=== PATIENT | male | born 1930 | race Caucasian/White ===

== ENCOUNTER 2017-04-19 10:57 | Inpatient (IN) | payer MEDICARE, OTHER ==
[2017-04-19] VITALS (35 sets, daily range): BP systolic 97–128; BP diastolic 50–82
[~2017-04-19] VITALS: Ht 175.3 cm; Wt 82.1 kg
--- NOTE | 2017-04-19 11:05 | NUR ---
Note undone in EDM - 04/19/17 at 1125 by [email or web address] ADRIANNARA [facility] DUE TO SOB AND POSSIBLE BLOOD IN STOOL PER REPORT. PATIENT RECEIVED AWAKE, HOWEVER NON VERBAL. PATIENT ON O2 VIA NC 22-3 LPM SATING 97%. PATIENT APPEARS IN MILD DISTRESS. AFEBRILE GOWNED PATIENT AND PLACED ON TELE MONITOR.
--- NOTE | 2017-04-19 11:05 | NUR ---
BRAN FROM [facility] DUE TO SOB AND POSSIBLE BLOOD IN STOOL PER REPORT. PATIENT RECEIVED AWAKE, HOWEVER NON VERBAL. PATIENT ON O2 VIA NC 2-3 LPM SATING 97%. PATIENT APPEARS IN MILD DISTRESS. AFEBRILE GOWNED PATIENT AND PLACED ON TELE MONITOR.
--- NOTE | 2017-04-19 11:12 | NUR ---
CALLED [facility] FOR PICCLINE
--- NOTE | 2017-04-19 11:13 | NUR ---
CALLED PHARMACY FOR PROTONIX DRIP
--- NOTE | 2017-04-19 11:17 | NUR ---
ICU BED 255
[2017-04-19 11:26] LABS: BASOPHILS % (AUTO) 0.2 % (0.0-2.0); EOSINOPHILS % (AUTO) 0.1 % (0.0-6.0); HEMATOCRIT 25 % (39-51); HEMOGLOBIN 8.1 g/dL (13.5-17.5); LYMPHOCYTES % (AUTO) 15.9 % (20.0-44.0); MEAN CORPUSCULAR HEMOGLOBIN 30 PG (26.0-33.0); MEAN CORPUSCULAR HGB CONC 33 g/dl (31.0-36.0); MEAN CORPUSCULAR VOLUME 90 fL (80-96); MONOCYTES # (AUTO) 0.9 /CMM (0.1-1.30); NEUTROPHILS # (AUTO) 9.8 /CMM (1.8-8.9); NEUTROPHILS % (AUTO) 76.8 % (43.0-81.0); PLATELET COUNT (AUTO) 174 /CMM (150-450); RDW COEFFICIENT OF VARIATION 20.6 (11.5-15.0); RED BLOOD CELL COUNT(AUTO) 2.75 MIL/uL (4.5-6.0); WHITE BLOOD COUNT (AUTO) 12.7 K/uL (4.3-11.0)
[2017-04-19] MEDS ORDERED: PIPERACILLIN /TAZOBACTAM 3.375 G in IV D5W 50 ML IV ONE (11:30)
[2017-04-19] MEDS ORDERED: PANTOPRAZOLE 80 MG in IV NS 0.9% 100 ML IV ONE (11:30)
[2017-04-19] MEDS ORDERED: ACETAMINOPHEN 325 MG TABLET PO ONE ×2 (11:30)
[2017-04-19] MEDS ORDERED: IV NS 0.9% 1,000 ML BAG IV ONE ×2 (11:30)
[2017-04-19] MEDS ORDERED: VANCOMYCIN 1 GM in IV D5W 250 ML IV ONE (11:30)
[2017-04-19 11:35] LABS: CALCIUM, SERUM 7.5 mg/dL (8.5-10.1); CARBON DIOXIDE 19 mmol/L (21-32); CHLORIDE 113 mmol/L (98-107); CREATININE 1.3 mg/dL (0.6-1.3); GLUCOSE 181 mg/dL (74-106); POTASSIUM 5.4 mmol/L (3.5-5.1); SODIUM SERUM 141 mmol/L (136-145); UREA NITROGEN, BLOOD 64 mg/dL (7-18)
--- NOTE | 2017-04-19 11:37 | NUR ---
Paged Dr Tinsley for GI consult for Dr Li. Dr Li is talking with him on the phone.
[2017-04-19 11:38] LABS: INR 1.26 (0.87-1.13); PROTHROMBIN TIME 13.1 SECS (9.5-12.7)
[2017-04-19 11:43] LABS: TROPONIN I 0.069 ng/mL (0.00-0.056)
[2017-04-19 11:46] LABS: ALANINE AMINOTRANSFERASE 17 U/L (12-78); ALKALINE PHOSPHATASE 165 U/L (46-116); ASPARTATE AMINOTRANSFERASE 18 U/L (15-37); BILIRUBIN,DIRECT 0.2 mg/dL (0.0-0.2); BILIRUBIN,TOTAL 0.6 mg/dL (0.2-1.0); LIPASE 107 U/L (73-393); TOTAL PROTEIN, SERUM 4.4 g/dL (6.4-8.2)
[2017-04-19 11:47] LABS: ALBUMIN 1.2 g/dL (3.4-5.0)
[2017-04-19] MEDS ORDERED: MULT-213 GT (11:48)
[2017-04-19] MEDS ORDERED: LACT-209 GT (11:48)
[2017-04-19] MEDS ORDERED: FOLI0.8T23 GT (11:48)
[2017-04-19] MEDS ORDERED: ZINC220T GT (11:48)
[2017-04-19] MEDS ORDERED: DOCU-25 GT (11:48)
[2017-04-19] MEDS ORDERED: NA P133E RC (11:48)
[2017-04-19] MEDS ORDERED: DUTA0.5C GT (11:48)
[2017-04-19] MEDS ORDERED: BISA10SU8 RC (11:48)
[2017-04-19] MEDS ORDERED: SENN8.6T6 GT (11:48)
[2017-04-19] MEDS ORDERED: PANT40SU2 GT (11:48)
[2017-04-19] MEDS ORDERED: LEVO50TA8 GT (11:48)
[2017-04-19] MEDS ORDERED: ATOR10TA GT (11:48)
[2017-04-19] MEDS ORDERED: MAGN400O6 GT (11:48)
[2017-04-19] MEDS ORDERED: METO25TA6 GT (11:48)
[2017-04-19] MEDS ORDERED: ACET-868 GT (11:48)
[2017-04-19] MEDS ORDERED: SUCR1TAB26 GT (11:48)
[2017-04-19] MEDS ORDERED: ASPI1CPM GT (11:48)
[2017-04-19] MEDS ORDERED: ALBU2.5V38 NEB (11:48)
--- NOTE | 2017-04-19 13:00 | NUR ---
REPORT GIVEN TO RANJIT LESLIE FOR [facility] ICU 255
[2017-04-19] MEDS ORDERED: ACETAMINOPHEN 325 MG TABLET PO PRN (13:30)
[2017-04-19] MEDS ORDERED: ONDANSETRON HCL/PF 4 MG/2 ML VIAL IV PRN (13:30)
[2017-04-19] MEDS ORDERED: MORPHINE SULFATE INJ 2 MG/ML DISP.SYRIN IM PRN (14:00)
[2017-04-19] MEDS ORDERED: PHYTONADIONE INJ 10 MG/1 ML AMPUL IM ONE (14:00)
[2017-04-19] MEDS ORDERED: NOREPINEPHRINE 8 MG in IV D5W 500 ML IV PRN (14:30)
[2017-04-19] MEDS ORDERED: AMIODARONE 900 MG in IV D5W 482 ML IV PRN (14:30)
[2017-04-19] MEDS ORDERED: AMIODARONE 150 MG in IV D5W 100 ML IV ONE (14:30)
[2017-04-19] MEDS: IV NS 0.9% 1,000 ML IV PRN (14:39)
[2017-04-19] MEDS: PANTOPRAZOLE 80 MG in IV NS 0.9% 500 ML IV PRN (15:07)
--- NOTE | 2017-04-19 15:22 | NUR ---
SHELLFISH SHUCKER NOTE 1330: Admitted 86y/o male patient from ER fro GIB/rectal bleeding. No active bleeding noted a this time. 1st bag of PRBC ongoing. 3PIVs intact. GT clamped, intact, no resdiuals, no coffee ground noted on the GT. Dr. Tinsley at bedside, aware. Obtained order for Vit K IM, serial H/H. 1400: Admitting orders entered. 1520: Daughter at bedside, discussed re: the POC. Signed consent for PICC line insertion and blood transfusion consent, verbal consent given by daughter to Dr. Li in ER. Done with 1st bag of blood transfusion, patient tolerated well. VSS at this time. AFib controlled now, on Amio drip at 1mg/hr. 90-100's. Followed up to blood bank for 2nd bag, said they will call in 30 min. Daughter informed re: FUNMI DVT, ordered stat venous doppler BUE.
--- NOTE | 2017-04-19 16:18 | NUR ---
BIOINFORMATICS ENGINEER NOTE 2 issued PRBCs from ER, not scanned. Patient only received 1 unit PRBC that started from ER>
--- NOTE | 2017-04-19 18:52 | NUR ---
SUPPLY CHAIN DIRECTOR NOTE Updated Dr. Li re: patient's condition, negative on BUE DVT. Daughter and visited and made them aware re: the result too. Was able to place midline on MOOKIE, unable to get PICC line per PICC nurse. Still on 2nd bag RBC ongoing. Noted with 1BM bright red stool again. Cleaned patient and placed on condom cath to draining bag. Placed on KCI mattress. Contact isolation for ESBL urine Hx, maintained and observed.
--- NOTE | 2017-04-19 21:19 | NUR ---
received pt from day shift, alert, does not follow commands, A fib controlled, receiving Amio at 0.5mg/hr, Protonix at 50cc/hr, on 2L NC sat well, lungs congested, NPO, condom cath on, GT clamped, small black stool noted, pt taken to CT of abdomen, tolerated well, 2 units prbcs transfused, v/s stable, no pain, no transfusion reactions, pt turned and repositioned.
[2017-04-19 21:39] LABS: HEMOGLOBIN 8.8 g/dL (13.5-17.5)
--- NOTE | 2017-04-19 22:44 | NUR ---
did not try to insert F/C, day shift tried, was not successful, might be traumatized noted some blood around penis. condom cath does not stay on the penis because of penis size. bladder scan done, no urine in the bladder.
[2017-04-20] VITALS (43 sets, daily range): BP systolic 90–147; BP diastolic 40–81
--- NOTE | 2017-04-20 | NUR ---
pt is resting in the bed, on amio at 0.5mg/hr, A fib controlled, v/s stable, no pain, small black stool, pt turned and repositioned q2hrs.
[2017-04-20] MEDS ORDERED: PANTOPRAZOLE 40 MG VIAL ONE (00:02)
[2017-04-20] MEDS: PANTOPRAZOLE 80 MG in IV NS 0.9% 500 ML IV PRN ×3 (01:55→22:19)
[2017-04-20] MEDS: IV NS 0.9% 1,000 ML IV PRN ×2 (02:01→17:24)
[2017-04-20 04:31] LABS: BASOPHILS % (AUTO) 0.3 % (0.0-2.0); EOSINOPHILS % (AUTO) 0.2 % (0.0-6.0); HEMATOCRIT 22 % (39-51); HEMOGLOBIN 7.3 g/dL (13.5-17.5); LYMPHOCYTES # (AUTO) 1.1 /CMM (0.8-4.8); LYMPHOCYTES % (AUTO) 8.6 % (20.0-44.0); MEAN CORPUSCULAR HEMOGLOBIN 30 PG (26.0-33.0); MEAN CORPUSCULAR HGB CONC 33 g/dl (31.0-36.0); MEAN CORPUSCULAR VOLUME 90 fL (80-96); MONOCYTES # (AUTO) 0.7 /CMM (0.1-1.30); MONOCYTES % (AUTO) 5.6 % (2.0-12.0); NEUTROPHILS # (AUTO) 11.4 /CMM (1.8-8.9); NEUTROPHILS % (AUTO) 85.3 % (43.0-81.0); PLATELET COUNT (AUTO) 108 /CMM (150-450); RDW COEFFICIENT OF VARIATION 18.6 (11.5-15.0); RED BLOOD CELL COUNT(AUTO) 2.46 MIL/uL (4.5-6.0); WHITE BLOOD COUNT (AUTO) 13.4 K/uL (4.3-11.0)
[2017-04-20 04:45] LABS: CALCIUM, SERUM 6.8 mg/dL (8.5-10.1); CARBON DIOXIDE 20 mmol/L (21-32); CHLORIDE 117 mmol/L (98-107); CREATININE 1.2 mg/dL (0.6-1.3); GLUCOSE 108 mg/dL (74-106); MAGNESIUM 1.7 mg/dL (1.8-2.4); PHOSPHORUS 3.4 mg/dL (2.5-4.9); POTASSIUM 4.7 mmol/L (3.5-5.1); SODIUM SERUM 146 mmol/L (136-145); UREA NITROGEN, BLOOD 71 mg/dL (7-18)
--- NOTE | 2017-04-20 04:45 | NUR ---
pt is resting in the bed, A fib, on amio drip at 0.5mg/hr, v/s stable, no pain, pt cleaned, changed and repositioned q2hrs.
[2017-04-20 08:18] LABS: ABG BASE EXCESS -6.7 mmol/L; ABG OXYGEN SATURATION 95.4 % (92.0-98.5); ABG PCO2 22.5 mmHg (35.0-45.0); ABG PH 7.467 (7.350-7.450); ABG PO2 86.6 mmHg (75.0-100.0); AaDO2 86.5 mmHg; COHb 0.1 % (0.5-1.5); MetHb 0.8 % (0.0-1.5); O2Hb 94.5 % (94.0-97.0); SITE, ABG Right Radial; VENT MODE, BG 2L N/C
--- NOTE | 2017-04-20 08:49 | NUR ---
STEWARD/STEWARDESS RAILROAD DINING CAR NOTE 0720: Received patient awake, alert to name. No respiratory distress noted at this time. On 2LPM of O2 via NC, Sat 98%. No c/o discomfort at this time. On isolation precaution for Hx ESBL urine, maintained and observed. MD aware unable to get urine, even tried condom catheter but does not stay. Still noted with dark red stool. Will continue to monitor. MOOKIE midline intact. Blood transfusion ongoing, VSS. 0805: Done with blood transfusion, patient tolerated well. 0840: S/E by Dr. Li, with order to start on Vanco and Zosyn and decrease IVF NS to 40. 0845: Spoke with Naz, daughter via phone and given update.
[2017-04-20] MEDS ORDERED: PIPERACILLIN /TAZOBACTAM 2.25 G in IV D5W 50 ML IV SCH (09:00)
[2017-04-20 09:06] LABS: HEMOGLOBIN 7.8 g/dL (13.5-17.5)
--- NOTE | 2017-04-20 09:18 | NUR ---
HISTOPATHOLOGY TECHNICIAN NOTE S/E by Dr. Tinsley, aware for the latest labs, Hgb 7.8, with order to do H/H at 1300. Patient still with episodes of dark red stool, aware.
[2017-04-20] MEDS ORDERED: FEE PK DOSING 1 MIN EA MC ONE (09:20)
[2017-04-20] MEDS ORDERED: AMIODARONE 900 MG in IV D5W 482 ML IV PRN (10:00)
[2017-04-20] MEDS ORDERED: Magnesium 1GM/D5W 100ML PREMIX 100 ML IV SCH (10:00)
--- NOTE | 2017-04-20 10:00 | NUR ---
WALLCOVERING TEXTURER NOTE S/E by darvin Bray Afib 100's on the monitor, informed MD 24 hr therapy of Amio will be done at 1500, continue Amio 0.5mg IV drip until further order per MD.
[2017-04-20 10:33] LABS: THYROID STIMULATING HORMONE 10.881 uIU/mL (0.358-3.74)
[2017-04-20 10:35] LABS: TROPONIN I 0.048 ng/mL (0.00-0.056)
[2017-04-20] MEDS: Magnesium 1GM/D5W 100ML PREMIX 100 ML IV SCH ×2 (10:42→11:39)
[2017-04-20] MEDS: ATORVASTATIN 10 MG TABLET GT SCH ×2 (10:56→21:34)
--- NOTE | 2017-04-20 10:58 | NUR ---
BUSINESS DEVELOPMENT CONSULTANT NOTE Dr. Li called and said he talked to daughter Naz and does not want any procedure today, informed Dr. Tinsley, verbalized understanding. Spoke with Naz via phone and given update.
[2017-04-20] MEDS: LEVOTHYROXINE SODIUM 50 MCG TABLET GT SCH (11:00)
[2017-04-20] MEDS: DIGOXIN INJ 0.5 MG/2 ML AMPUL IV SCH ×3 (11:07→23:55)
[2017-04-20] MEDS: SUCRALFATE 1 G TABLET GT SCH ×3 (11:07→21:34)
[2017-04-20] MEDS: VANCOMYCIN 1 GM in IV D5W 250 ML IV SCH (11:39)
[2017-04-20] MEDS: PIPERACILLIN /TAZOBACTAM 3.375 G in IV D5W 50 ML IV SCH ×3 (12:27→23:56)
[2017-04-20 14:17] LABS: HEMOGLOBIN 7.1 g/dL (13.5-17.5)
--- NOTE | 2017-04-20 20:05 | NUR ---
RN OPENING NOTES: RECEIVED PATIENT ON BED AWAKE ALERT X2, VERBALLY RESPONSIVE. ON O2 VIA NC AT 2LPM, TOLERATED WELL. AFIB CONTROLLED ON MONITOR, HR AT LOW 100'S TO HIGH 90'S. IV ACCESS ON MOOKIE PICC LINE WITH ONGOING AMIODARONE DRIP, PROTONIX DRIP AND IVF ORDERED. GT INTACT, CHECKED FOR GASTRIC RESIDUALS. NO NOTED BLOODY GASTRIC FLUID NOTED. PATIENT IS INCONTINENT WITH DIAPER. MONITORED FOR ACTIVE BLEEDING. SAFETY MEASURES ENSURED. WITH PENDING H/H AT 2100, WITH STANDING ORDER OF BLOOD TRANSFUSION BASED ON RESULT OF BLOOD TEST. FALL AND ASPIRATION PRECAUTIONS OBSERVED AT ALL TIMES. CONTINUOUSLY MONITORED CLOSELY.
[2017-04-20 21:30] LABS: HEMOGLOBIN 6.3 g/dL (13.5-17.5)
--- NOTE | 2017-04-20 21:30 | NUR ---
RN NOTES: H/H RESULT CRITICAL AT 6.3 AND 19. STANDING ORDER CARRIED OUT. TO TRANSFUSE 1 UNIT PRBC. 2218 STARTED BLOOD TRANSFUSION, VERIFIED WITH MAGDALENO KELLEY RN. CONSENT IN CHART. PATIENT'S DAUGHTER AWARE SHE CALLED AND SPOKE TO FAMILY MEMBER OVER THE PHONE. VS LOGGED. AFEBRILE. MONITORED FOR POSSIBLE BLOOD TRANSFUSION REACTIONS.
[2017-04-20] MEDS: MUPIROCIN OINT 2% 22 GM TUBE SCH (21:48)
[2017-04-21] VITALS (20 sets, daily range): BP systolic 105–138; BP diastolic 44–69
--- NOTE | 2017-04-21 | NUR ---
RN NOTES; SKIN CARE RENDERED. BED BATH GIVEN. PATIENT WITH NOTED BM X1 LIQUID AND BLOODY OF MODERATE AMOUNT. BLOOD TRANSFUSION STILL ONGOING. ALSO NOTED BUE DEPENDENT EDEMA THAT IS WEEPING. SKIN CARE RENDERED. ELEVATED BUE. TO MONITOR FOR FURTHER (ACTIVE) BLEEDING.
--- NOTE | 2017-04-21 01:15 | NUR ---
RN NOTES: BLOOD TRANSFUSION ENDED. PATIENT REMAINED NOT IN APPARENT DISTRESS. VS STABLE. CONTINUOUSLY MONITORED.
[2017-04-21] MEDS: VANCOMYCIN 1 GM in IV D5W 250 ML IV SCH ×2 (04:18→22:00)
[2017-04-21 04:29] LABS: EOSINOPHILS % (AUTO) 0.3 % (0.0-6.0); HEMATOCRIT 22 % (39-51); HEMOGLOBIN 7.4 g/dL (13.5-17.5); LYMPHOCYTES # (AUTO) 0.9 /CMM (0.8-4.8); LYMPHOCYTES % (AUTO) 6.7 % (20.0-44.0); MEAN CORPUSCULAR HEMOGLOBIN 30 PG (26.0-33.0); MEAN CORPUSCULAR HGB CONC 34 g/dl (31.0-36.0); MEAN CORPUSCULAR VOLUME 90 fL (80-96); MONOCYTES # (AUTO) 0.8 /CMM (0.1-1.30); MONOCYTES % (AUTO) 5.9 % (2.0-12.0); NEUTROPHILS # (AUTO) 11.3 /CMM (1.8-8.9); NEUTROPHILS % (AUTO) 87.1 % (43.0-81.0); PLATELET COUNT (AUTO) 90 /CMM (150-450); RDW COEFFICIENT OF VARIATION 16.4 (11.5-15.0); RED BLOOD CELL COUNT(AUTO) 2.44 MIL/uL (4.5-6.0)
[2017-04-21 04:42] LABS: ALANINE AMINOTRANSFERASE 16 U/L (12-78); ALKALINE PHOSPHATASE 115 U/L (46-116); ASPARTATE AMINOTRANSFERASE 20 U/L (15-37); BILIRUBIN,TOTAL 0.6 mg/dL (0.2-1.0); CALCIUM, SERUM 7.1 mg/dL (8.5-10.1); CARBON DIOXIDE 20 mmol/L (21-32); CHLORIDE 120 mmol/L (98-107); CREATININE 1.1 mg/dL (0.6-1.3); GLUCOSE 99 mg/dL (74-106); PHOSPHORUS 3.4 mg/dL (2.5-4.9); POTASSIUM 4.7 mmol/L (3.5-5.1); SODIUM SERUM 149 mmol/L (136-145); TOTAL PROTEIN, SERUM 3.4 g/dL (6.4-8.2)
[2017-04-21 04:48] LABS: TROPONIN I 0.037 ng/mL (0.00-0.056)
[2017-04-21 04:55] LABS: ALBUMIN 0.9 g/dL (3.4-5.0); UREA NITROGEN, BLOOD 86 mg/dL (7-18)
[2017-04-21 05:16] LABS: BAND % (MANUAL) 8 % (0.0-5.0); LYMPHOCYTES % (MANUAL) 7 % (16-48); MONOCYTES % (MANUAL) 5 % (0-11.0); NEUTROPHILS % (MANUAL) 80 (42-76)
[2017-04-21] MEDS: PIPERACILLIN /TAZOBACTAM 3.375 G in IV D5W 50 ML IV SCH ×3 (05:21→17:58)
--- NOTE | 2017-04-21 06:26 | NUR ---
WOUND CARE CONSULT WOUND CARE CONSULT RECEIVED. SURGICAL TEAM FOLLOWING WOUND CARE WILL DEFER TO SURGICAL TEAM AND ALL TREATMENT ORDERS IN PLACE. ALL PRESSURE ULCER PREVENTION MEASURES NOTED TO BE IN PLACE. 1ST STEP LOW AIRLOSS MATTRESS IN USE. PATIENT WITH RICHARD AT 11. MD IN AGREEMENT WITH PLAN OF CARE. Z GUARD ORDERED FOR SKIN/MOISTURE MANAGEMENT.
[2017-04-21] MEDS ORDERED: Z GUARD REMEDY 2 OZ OINT TP PRN (06:30)
--- NOTE | 2017-04-21 06:47 | NUR ---
RN CLOSING NOTES: PATIENT REMAINED NOT IN APPARENT DISTRESS AT THIS TIME. REMAINED ON O2 THERAPY. REMAINED AFIB CONTROLLED ON MONITOR, ALL DRIPS AND IVF ONGOING ORDERED. SKIN CARE RENDERED. SAFETY MEASURES ENSURED. CONTINUITY OF CARE TO BE ENDORSED TO AM SHIFT RN.
--- NOTE | 2017-04-21 07:45 | NUR ---
ICU/RN - Initial Notes Received pt in bed, alert to self. Reorientation provided to place and time. On tele reading AFib controlled 80's, on continuous Amiodarone gtt as ordered. On O2 @ 2lpm via nasal cannula. GT clamped, kept NPO as ordered. MOOKIE Midline patent and intact, IVF and Protonix gtt infusing well. Safety and comfort measures in place. Will continue to monitor pt closely.
[2017-04-21] MEDS: MUPIROCIN OINT 2% 22 GM TUBE SCH ×2 (08:01→21:40)
[2017-04-21] MEDS: SUCRALFATE 1 G TABLET GT SCH ×4 (08:01→21:00)
[2017-04-21] MEDS: CADEXOMER IODINE 40 GM TUBE TP SCH (08:02)
[2017-04-21] MEDS: Z GUARD REMEDY 2 OZ OINT TP SCH (08:03)
[2017-04-21] MEDS: LEVOTHYROXINE SODIUM 50 MCG TABLET GT SCH (08:04)
[2017-04-21] MEDS: DAKINS QUARTER STRENGTH (0.125%) 480 ML BOTTLE TOP SCH (09:51)
[2017-04-21] MEDS: NEOMY SULF/BACITRAC ZN/POLY 15 GM TUBE TP SCH ×2 (09:51→18:48)
--- NOTE | 2017-04-21 09:55 | NUR ---
ICU/RN - Notes Pt seen and evaluated by Dr Ruiz with new orders received. Ok to transfer to [facility] per .
[2017-04-21] MEDS: IV NS 0.9% 1,000 ML IV PRN (10:10)
[2017-04-21] MEDS: PANTOPRAZOLE 80 MG in IV NS 0.9% 500 ML IV PRN (11:01)
[2017-04-21] MEDS: DIGOXIN INJ 0.5 MG/2 ML AMPUL IV SCH ×2 (11:03→17:58)
[2017-04-21] MEDS ORDERED: LORATADINE 10 MG TABLET PO ONE (12:30)
[2017-04-21] MEDS ORDERED: diphenhydrAMINE HCL 50 MG/ML VIAL IV ONE (12:30)
--- NOTE | 2017-04-21 13:00 | NUR ---
ICU/RN - Notes Orders received from Dr Li to transfuse x1 PRBC now. Benadryl and Claritin administered prior to initiation of transfusion. PRBC transfusion started. Will continue to monitor.
[2017-04-21 13:40] LABS: ABG BASE EXCESS -7.2 mmol/L; ABG OXYGEN SATURATION 94.3 % (92.0-98.5); ABG PCO2 20.5 mmHg (35.0-45.0); ABG PH 7.489 (7.350-7.450); ABG PO2 77.3 mmHg (75.0-100.0); AaDO2 47.9 mmHg; COHb 1.1 % (0.5-1.5); MetHb 1.2 % (0.0-1.5); O2Hb 92.1 % (94.0-97.0); SITE, ABG Right Radial; VENT MODE, BG ROOM AIR
--- NOTE | 2017-04-21 15:20 | NUR ---
ICU/RN - Notes Bed bath given to pt. Bloody bowel movement noted.
--- NOTE | 2017-04-21 15:55 | NUR ---
ICU/RN - Notes Blood transfusion completed with no s/s of adverse reactions.
--- NOTE | 2017-04-21 15:56 | NUR ---
ICU/RN - Notes Report called to RANJIT Jay for continuity of care. Pt to be transferred to [place] [id number]. Pt's daughter Naz called and notified of transfer.
--- NOTE | 2017-04-21 16:15 | NUR ---
RN NOTES RECEIVED PT FROM PITCH FLAKER SAAN, VIA BED, PT AWAKE, VERBALLY RESPONSIVE, NO SIGN OF PAIN, NOT IN DISTRESS, ASSISTED TO BED, MADE COMFORTABLE, ISOLATION PRECAUTIONS OBSERVED, VITAL SIGNS TAKEN AND RECORDED.
--- NOTE | 2017-04-21 16:15 | NUR ---
ICU/RN - Transfer Pt transferred to [place] [id number] in stable condition. Pt has no belongings.
--- NOTE | 2017-04-21 18:22 | NUR ---
SEMICONDUCTOR PROCESSING TECHNICIAN CLOSING NOTES PT RESTING IN BED. NO APPARENT S/S OF PAIN OR DISTRESS. PT TELE MONITORED AFIB SINUS RHYTHM WITH FIRST DEGREE AV BLOCK RATE AT 81. IVF VANCO RUNNING AND PT TOLERATING FLUIDS WELL. PT KEPT CALM AND COMFORTABLE, AND THE CALL LIGHT IS WITHIN REACH. WILL ENDORSE TO CAN STRIPER NURSE.
--- NOTE | 2017-04-21 19:35 | NUR ---
MS/RN OPENING NOTES PT RECEIVED RESTING COMFORTABLY IN BED. A/OX1, ON 2LPM O2 VIA NC, BREATHING EVEN AND UNLABORED. NPO/GT CLAMPED. IV TO RIGHT HAND AND MOOKIE MIDLINE PATENT AND INTACT RUNNING IVF ORDERED. S/P TRANSFUSION OF 1 UNIT OF PRBC TODAY. WILL MONITOR FOR ACTIVE SIGNS OF BLEEDING. BED IN LOW/LOCKED POSITION. CALL LIGHT IN REACH. SIDE RAILS UPX2. WILL CONTINUE TO MONITOR
[2017-04-21] MEDS: PANTOPRAZOLE 40 MG VIAL IV SCH (21:38)
[2017-04-21] MEDS: ATORVASTATIN 10 MG TABLET GT SCH (21:38)
--- NOTE | 2017-04-21 22:35 | NUR ---
MS/RN NOTES VANCO TROUGH=21. HELD PER ORDERED RANGE.
[2017-04-22] MEDS: DIGOXIN INJ 0.5 MG/2 ML AMPUL IV SCH
[2017-04-22] MEDS: PIPERACILLIN /TAZOBACTAM 3.375 G in IV D5W 50 ML IV SCH ×5 (00:16→23:04)
[2017-04-22] MEDS: IV NS 0.9% 1,000 ML IV PRN (00:22)
--- NOTE | 2017-04-22 01:00 | NUR ---
MS/RN NOTES HR IN 60-70'S THEN WOULD DROP LOW 39. CRN MADE AWARE AND AGREES WITH HOLDING DOSE. HELD SCHEDULED DIGOXIN.
--- NOTE | 2017-04-22 05:00 | NUR ---
MS/RN NOTES PT WITH 2 EPISODES OF MODERATE TO LARGE AMOUNT OF DARK RED RECTAL BLEEDING DURING SHIFT. WOUND CARE PROVIDED ORDERED. SENIOR BOOKKEEPER AWARE.
--- NOTE | 2017-04-22 06:49 | NUR ---
MS/RN CLOSING NOTES PT ASLEEP, EASILY AROUSABLE TO NAME. REMAINS ON 2L O2 VIA NC. BREATHING EVEN AND UNLABORED. DENIES SOB OR PAIN. PT STILL WITH DARK RED RECTAL BLEEDING. WOUND CARE PROVIDED ORDERED. IV TO RIGHT HAND AND MOOKIE MIDLINE PATENT AND INTACT RUNNING IVF ORDERED. TURNED/REPOSITIONED Q2H, HEELS OFFLOADED. MADE PT COMFORTABLE DURING SHIFT. PT'S DAUGHTER TILA REQUESTING PT TO BE TRANSFERRED TO [facility] ALSO IS REQUESTING THAT DR. TOLEDO CALL HER WILL ENDORSE TO AM SHIFT.
[2017-04-22 07:38] LABS: EOSINOPHILS % (AUTO) 0.1 % (0.0-6.0); HEMATOCRIT 23 % (39-51); HEMOGLOBIN 7.6 g/dL (13.5-17.5); LYMPHOCYTES # (AUTO) 0.8 /CMM (0.8-4.8); LYMPHOCYTES % (AUTO) 6.2 % (20.0-44.0); MEAN CORPUSCULAR HEMOGLOBIN 31 PG (26.0-33.0); MEAN CORPUSCULAR HGB CONC 34 g/dl (31.0-36.0); MEAN CORPUSCULAR VOLUME 91 fL (80-96); MONOCYTES # (AUTO) 0.7 /CMM (0.1-1.30); NEUTROPHILS # (AUTO) 10.7 /CMM (1.8-8.9); NEUTROPHILS % (AUTO) 87.7 % (43.0-81.0); PLATELET COUNT (AUTO) 75 /CMM (150-450); RDW COEFFICIENT OF VARIATION 15.9 (11.5-15.0); RED BLOOD CELL COUNT(AUTO) 2.47 MIL/uL (4.5-6.0); WHITE BLOOD COUNT (AUTO) 12.2 K/uL (4.3-11.0)
--- NOTE | 2017-04-22 07:51 | NUR ---
CLIENT EXPERIENCE ADMINISTRATOR OPENING NOTES PATIENT IS RESTING IN BED IN NO APPARENT DISTRESS. CALL LIGHT IS WITHIN REACH. BED IS LOCKED AND LOWERED. SIDE RAILS ARE UP X2. WILL CONTINUE TO MONITOR.
[2017-04-22 07:55] LABS: CALCIUM, SERUM 7.3 mg/dL (8.5-10.1); CARBON DIOXIDE 19 mmol/L (21-32); CHLORIDE 123 mmol/L (98-107); CREATININE 1.2 mg/dL (0.6-1.3); GLUCOSE 84 mg/dL (74-106); SODIUM SERUM 152 mmol/L (136-145); UREA NITROGEN, BLOOD 76 mg/dL (7-18)
[2017-04-22 08:00] VITALS: BP 117/68
[2017-04-22] MEDS: SUCRALFATE 1 G TABLET GT SCH ×4 (09:00→21:56)
[2017-04-22] MEDS: LEVOTHYROXINE SODIUM 50 MCG TABLET GT SCH (09:00)
[2017-04-22] MEDS: PANTOPRAZOLE 40 MG VIAL IV SCH ×2 (09:12→21:57)
[2017-04-22] MEDS: Z GUARD REMEDY 2 OZ OINT TP SCH (09:13)
[2017-04-22] MEDS: DAKINS QUARTER STRENGTH (0.125%) 480 ML BOTTLE TOP SCH (09:13)
[2017-04-22] MEDS: NEOMY SULF/BACITRAC ZN/POLY 15 GM TUBE TP SCH ×2 (09:14→21:56)
[2017-04-22] MEDS: CADEXOMER IODINE 40 GM TUBE TP SCH (09:14)
[2017-04-22] MEDS: MUPIROCIN OINT 2% 22 GM TUBE SCH ×2 (09:14→21:57)
[2017-04-22 09:38] LABS: LYMPHOCYTES % (MANUAL) 4 % (16-48); MONOCYTES % (MANUAL) 7 % (0-11.0); NEUTROPHILS % (MANUAL) 89 (42-76)
--- NOTE | 2017-04-22 10:00 | NUR ---
BREEDER HEN SERVICE TECHNICIAN NOTES SPOKE TO JUAN JOSÉ FROM PHARMACY. INFORMED THAT VANCO THROUGH WAS 21. OK TO GIVE VANCO PER PHARMACY.
[2017-04-22] MEDS: IV D5W 1,000 ML IV SCH (11:50)
[2017-04-22] MEDS ORDERED: VANCOMYCIN 1 GM in IV D5W 250 ML IV SCH (12:00)
[2017-04-22 16:00] VITALS: BP 127/59
--- NOTE | 2017-04-22 16:40 | NUR ---
GOLD FRAME ASSEMBLER NOTES SPOKE WITH DAUGHTER BELLO ABOUT PATIENT UPDATE IN CONDITION.
[2017-04-22 19:30] VITALS: BP 106/52
--- NOTE | 2017-04-22 19:45 | NUR ---
RN NOTES PT RECEIVED A/OX1. OPENS EYES. ON 2L O2 VIA NC. BREATHING EVEN AND UNLABORED. NO APPARENT DISTRESS NOTED. PT SENT DOWN TO OR FOR STAT EGD. CONSENTS SIGNED AND CHECKLIST COMPLETED. DAY SHIFT RN AND FINAL INSPECTOR ACCOMPANIED ME TO SEND PT DOWN. REMAINED IN STABLE CONDITION.
[2017-04-22 20:00] VITALS: BP 106/52
[2017-04-22 21:00] VITALS: BP 161/46
--- NOTE | 2017-04-22 21:00 | NUR ---
RN NOTES PT RETURNED TO UNIT IN STABLE CONDITION. AROUSABLE. ON 2L O2 VIA NC, BREATHING EVEN AND UNLABORED. WILL MONITOR VITAL SIGNS.
[2017-04-22 21:30] VITALS: BP 159/74
--- NOTE | 2017-04-22 21:45 | NUR ---
RN NOTES NOTIFIED DR. TOLEDO OF EGD RESULTS AND DR. TOBIN'S ORDERS TO CONTINUE FEEDING AND MEDS. PT ON JEVITY AT HOME. DR TOLEDO WITH ORDERS TO START PT ON FIBERSOURCE HN AT 50ML/HR. TIAL (DAUGHTER) UPDATED AND REQUESTS THAT DR. GREER CONTACT HER IF HE HAS TIME TONIGHT REGARDING PLAN OF CARE. MD AWARE. WILL CARRY OUT
[2017-04-22] MEDS: ATORVASTATIN 10 MG TABLET GT SCH (21:57)
[2017-04-22] MEDS ORDERED: FIBERSOURCE HN 1,000 ML BOTTLE GT PRN (23:30)
[2017-04-23] MEDS: IV D5W 1,000 ML IV SCH ×2 (06:09→16:12)
[2017-04-23] MEDS: PIPERACILLIN /TAZOBACTAM 3.375 G in IV D5W 50 ML IV SCH ×4 (06:09→23:06)
[2017-04-23] MEDS ORDERED: FIBERSOURCE HN 1,000 ML BOTTLE GT PRN (06:28)
--- NOTE | 2017-04-23 06:40 | NUR ---
RN CLOSING NOTES PT ASLEEP, EASILY AROUSABLE TO NAME. ON 2L O2 VIA NC, BREATHING EVEN AND UNLABORED. DENIES PAIN. NO S/S OF SOB OR ACUTE DISTRESS. S/P EGD YESTERDAY WITH DR. TOBIN. X2 EPISODES OF LARGE AMOUNT OF DARK RED BLEEDING PER RECTUM. ON FIBERSOURCE RUNNING AT 5O ML/HR, NO RESIDUAL NOTED, RESIDUAL IS STRAW COLORED. IV TO RIGHT HAND AND MOOKIE MIDLINE PATENT AND INTACT. WOUND CARE PROVIDED ORDERED. LEFT ARM WHEEPING. TURNED/REPOSITIONED Q2H AND HEELS OFFLOADED AT ALL TIMES. BED IN LOW/LOCKED POSITION, CALL LIGHT IN REACH. SIDE RAILS UPX3. WILL ENDORSE TO AM SHIFT SERGIO.
--- NOTE | 2017-04-23 07:59 | NUR ---
FARM FORESTRY AND GARDEN WORKERS OPENING NOTES RECEIVED PATIENT IN STABLE CONDITION. IN NO APPARENT DISTRESS. PATENT IS ALERT. BEDSIDE RAILS ARE UP X2. BED IS LOCKED AND LOWERED. WILL CONTINUE TO MONITOR.
[2017-04-23 08:00] VITALS: BP 137/70
[2017-04-23 08:30] LABS: BASOPHILS % (AUTO) 0.1 % (0.0-2.0); EOSINOPHILS % (AUTO) 0.2 % (0.0-6.0); HEMATOCRIT 22 % (39-51); HEMOGLOBIN 7.3 g/dL (13.5-17.5); LYMPHOCYTES % (AUTO) 7.4 % (20.0-44.0); MEAN CORPUSCULAR HEMOGLOBIN 30 PG (26.0-33.0); MEAN CORPUSCULAR HGB CONC 33 g/dl (31.0-36.0); MEAN CORPUSCULAR VOLUME 92 fL (80-96); MONOCYTES # (AUTO) 0.9 /CMM (0.1-1.30); MONOCYTES % (AUTO) 6.8 % (2.0-12.0); NEUTROPHILS % (AUTO) 85.5 % (43.0-81.0); PLATELET COUNT (AUTO) 79 /CMM (150-450); RDW COEFFICIENT OF VARIATION 15.8 (11.5-15.0); WHITE BLOOD COUNT (AUTO) 12.8 K/uL (4.3-11.0)
[2017-04-23 08:46] LABS: CALCIUM, SERUM 7.3 mg/dL (8.5-10.1); CARBON DIOXIDE 17 mmol/L (21-32); CHLORIDE 120 mmol/L (98-107); CREATININE 1.3 mg/dL (0.6-1.3); GLUCOSE 137 mg/dL (74-106); MAGNESIUM 1.9 mg/dL (1.8-2.4); POTASSIUM 2.9 mmol/L (3.5-5.1); SODIUM SERUM 150 mmol/L (136-145); UREA NITROGEN, BLOOD 63 mg/dL (7-18)
[2017-04-23] MEDS: PANTOPRAZOLE 40 MG VIAL IV SCH ×2 (08:54→20:24)
[2017-04-23] MEDS: LEVOTHYROXINE SODIUM 50 MCG TABLET GT SCH (08:54)
[2017-04-23] MEDS: SUCRALFATE 1 G TABLET GT SCH ×4 (08:54→20:24)
[2017-04-23] MEDS: DAKINS QUARTER STRENGTH (0.125%) 480 ML BOTTLE TOP SCH (08:55)
[2017-04-23] MEDS: Z GUARD REMEDY 2 OZ OINT TP SCH (08:56)
[2017-04-23] MEDS: MUPIROCIN OINT 2% 22 GM TUBE SCH ×2 (09:16→20:24)
[2017-04-23] MEDS: CADEXOMER IODINE 40 GM TUBE TP SCH (09:16)
[2017-04-23] MEDS: NEOMY SULF/BACITRAC ZN/POLY 15 GM TUBE TP SCH ×2 (09:17→18:37)
[2017-04-23 09:25] LABS: BAND % (MANUAL) 2 % (0.0-5.0); LYMPHOCYTES % (MANUAL) 8 % (16-48); MONOCYTES % (MANUAL) 10 % (0-11.0); NEUTROPHILS % (MANUAL) 80 (42-76)
[2017-04-23] MEDS: POTASSIUM CL. PREMIX PERIPHER. 50 ML IV SCH ×3 (11:10→16:11)
[2017-04-23] MEDS ORDERED: PEG 3350/NA SULF,BICARB,CL/KCL 4,000 ML BOTTLE PO ONE (14:30)
[2017-04-23] MEDS ORDERED: LIDOCAINE 1%-EPI 1:200,000 SDV 10 ML VIAL IJ ONE (14:30)
[2017-04-23] MEDS ORDERED: SILVER NITRATE APPLICATOR 1 EA BOX TP ONE (14:30)
--- NOTE | 2017-04-23 15:50 | NUR ---
DR OGLESBY DID THE DEBRIDEMENT OF SACRAL WOUND TODAY.PT TOLERATED WELL.WILL MONITOR
[2017-04-23 16:00] VITALS: BP 131/87
--- NOTE | 2017-04-23 19:22 | NUR ---
MULTI SENSOR OPERATOR CLOSING NOTES PATIENT IS IN STABLE CONDITION. BEDSIDE RAILS ARE UP X 2. BED IS LOCKED AND LOWERED. WILL ENDORSE CARE TO LASER BEAM CUTTER NURSE FOR SERGIO.
--- NOTE | 2017-04-23 19:25 | NUR ---
MS RN OPENING NOTES: PT IS AWAKE AND AROUSABLE TO NAME AND TOUCH. PT ON 2LPM VIA NC AND IS TOLERATING WELL. PT DENIES OF PAIN. WAS ENDORSED THAT FEEDING AND FLUIDS WERE HELD FOR NOW D/T PT RECEIVING GOLYTELY. WAS ENDORSED THAT GOLYTELY HAS BEEN BEGUN AND VIA GTUBE. G TUBE CHECKED FOR RESIDUAL AND NO RESIDUAL NOTED. IV TO R HAND, L HAND, AND MOOKIE MIDLINE PATENT AND INTACT. BED ALARM ACTIVATED. CALL LIGHT WITHIN PT'S REACH. BED KEPT IN LOW, LOCKED POSITION, AND SIDE RAILS X 2 UP. WILL CONTINUE TO MONITOR PT.
[2017-04-23 20:00] VITALS: BP 168/91
[2017-04-23] MEDS: ATORVASTATIN 10 MG TABLET GT SCH (21:35)
[2017-04-23 21:45] VITALS: BP 134/70
[2017-04-24] VITALS (11 sets, daily range): BP systolic 104–147; BP diastolic 54–94
--- NOTE | 2017-04-24 04:00 | NUR ---
RN NOTES: BLOOD TRANSFUSION COMPLETED. PT TOLERATED WELL. NO ADVERSE REACTIONS NOTED. WILL CONTINUE TO MONITOR PT.
[2017-04-24] MEDS: PIPERACILLIN /TAZOBACTAM 3.375 G in IV D5W 50 ML IV SCH ×4 (05:11→23:17)
[2017-04-24 07:21] LABS: BASOPHILS % (AUTO) 0.1 % (0.0-2.0); EOSINOPHILS % (AUTO) 0.1 % (0.0-6.0); HEMATOCRIT 27 % (39-51); HEMOGLOBIN 9.1 g/dL (13.5-17.5); LYMPHOCYTES # (AUTO) 1.2 /CMM (0.8-4.8); LYMPHOCYTES % (AUTO) 10.2 % (20.0-44.0); MEAN CORPUSCULAR HEMOGLOBIN 30 PG (26.0-33.0); MEAN CORPUSCULAR HGB CONC 33 g/dl (31.0-36.0); MEAN CORPUSCULAR VOLUME 92 fL (80-96); MONOCYTES # (AUTO) 0.7 /CMM (0.1-1.30); MONOCYTES % (AUTO) 6.3 % (2.0-12.0); NEUTROPHILS # (AUTO) 9.5 /CMM (1.8-8.9); NEUTROPHILS % (AUTO) 83.3 % (43.0-81.0); PLATELET COUNT (AUTO) 75 /CMM (150-450); RDW COEFFICIENT OF VARIATION 15.9 (11.5-15.0); RED BLOOD CELL COUNT(AUTO) 2.99 MIL/uL (4.5-6.0); WHITE BLOOD COUNT (AUTO) 11.4 K/uL (4.3-11.0)
--- NOTE | 2017-04-24 07:25 | NUR ---
MS RN CLOSING NOTES: ALL NEEDS WERE ATTENDED AND ANTICIPATED FOR. PT IS AWAKE AND AROUSABLE TO NAME AND TOUCH. PT ON 2LPM VIA NC AND IS TOLERATING WELL. PT FINISHED GOLYTELY BEFORE MIDNIGHT VIA GTUBE. PT STILL HAVING BLACK/BROWN LIQUIDY WATERY STOOLS. PT POST 1 UNIT OF BLOOD BY 0400AM. WAS INFORMED FROM CLOTH WASHER THAT PT WAS NOT ON SCHEDULE SO TO ENDORSE TO AM NURSE TO CALL DR. TOBIN AND SEE WHAT TIME PT IS TO GO FOR PROCEDURE. PT HAS G TUBE AND NO RESIDUAL NOTED. FLUSHED WITH WATER. IV SITE ON L HAND AND MOOKIE MIDLINE PATENT AND INTACT. FEEDING HELD D/T PROCEDURE TODAY. BED ALARM ACTIVATED. CALL LIGHT WITHIN PT'S REACH. BED KEPT IN LOW, LOCKED POSITION, AND SIDE RAILS X 2 UP. ENDORSED TO AM NURSE FOR SERGIO.
--- NOTE | 2017-04-24 07:30 | NUR ---
RN OPENING NOTES RECEIVED PATIENT IN BED AWAKE. NO ACUTE DISTRESS, NO SOB NOTED. IV SITE INTACT AND PATENT. BED IN LOW POSITION, LOCKED, SIDERAILS UPX2. CALL LIGHT IN REACH. WILL CONTINUE TO MONITOR ACCORDINGLY.
[2017-04-24 07:31] LABS: CALCIUM, SERUM 7.7 mg/dL (8.5-10.1); CARBON DIOXIDE 19 mmol/L (21-32); CHLORIDE 122 mmol/L (98-107); CREATININE 1.2 mg/dL (0.6-1.3); GLUCOSE 93 mg/dL (74-106); POTASSIUM 3.4 mmol/L (3.5-5.1); SODIUM SERUM 153 mmol/L (136-145); UREA NITROGEN, BLOOD 51 mg/dL (7-18); VANCOMYCIN,TROUGH 18 ug/ml (12-20)
--- NOTE | 2017-04-24 08:15 | NUR ---
RN NOTES PATIENT BROUGHT DOWN FOR COLONOSCOPY, PATIENT IN STABLE CONDITION, ALL CONSENT AND CHECKLIST DONE.
[2017-04-24] MEDS: MUPIROCIN OINT 2% 22 GM TUBE SCH ×2 (09:00→21:49)
[2017-04-24] MEDS: Z GUARD REMEDY 2 OZ OINT TP SCH (09:00)
[2017-04-24] MEDS: CADEXOMER IODINE 40 GM TUBE TP SCH (09:00)
--- NOTE | 2017-04-24 09:23 | NUR ---
RN NOTES PATIENT CAME BACK FROM COLONOSCOPY, IN STABLE CONDITION. EG=519/65, P=59, R=18, 02SAT 98% ON 2LPM NC. WILL CONTINUE TO MONITOR ACCORDINGLY.
[2017-04-24 09:30] LABS: BAND % (MANUAL) 2 % (0.0-5.0); LYMPHOCYTES % (MANUAL) 4 % (16-48); MONOCYTES % (MANUAL) 10 % (0-11.0); NEUTROPHILS % (MANUAL) 84 (42-76)
[2017-04-24] MEDS ORDERED: POTASSIUM CHLORIDE 20 MEQ POWDER PACKET GT ONE (10:00)
[2017-04-24] MEDS: VANCOMYCIN 0.75 GM in IV D5W 250 ML IV SCH (10:07)
[2017-04-24] MEDS: ASCORBIC ACID 500 MG TABLET PO SCH (10:34)
[2017-04-24] MEDS: LEVOTHYROXINE SODIUM 50 MCG TABLET GT SCH (10:34)
[2017-04-24] MEDS: SUCRALFATE 1 G TABLET GT SCH ×4 (10:35→21:48)
[2017-04-24] MEDS: MULTIVITAMINS,THERAGRAN 1 UDTAB TABLET PO SCH (10:35)
[2017-04-24] MEDS: DAKINS QUARTER STRENGTH (0.125%) 480 ML BOTTLE TOP SCH (10:36)
[2017-04-24] MEDS: NEOMY SULF/BACITRAC ZN/POLY 15 GM TUBE TP SCH ×2 (10:36→17:00)
[2017-04-24] MEDS: IV D5W 1,000 ML IV SCH (11:09)
[2017-04-24] MEDS: PANTOPRAZOLE 40 MG VIAL IV SCH ×2 (11:23→21:48)
[2017-04-24] MEDS: FIBERSOURCE HN 1,000 ML BOTTLE GT PRN (14:16)
--- NOTE | 2017-04-24 19:30 | NUR ---
RN CLOSING NOTES PATIENT IN BED RESTING. NO ACUTE DISTRESS, NO SOB NOTED. IV SITE INTACT AND PATENT. ALL NEEDS ATTENDED AND PROVIDED. TURN AND REPOSITION PATIENT EVERY 2HR. KEPT PATIENT SAFE AND COMFORTABLE. BED IN LOW LOCKED POSITION, SIDERAILS UPX2. CALL LIGHT IN REACH. ENDORSED TO NIGHT RN FOR SERGIO.
--- NOTE | 2017-04-24 19:30 | NUR ---
RN CLOSING NOTES PATIENT IN BED RESTING. NO ACUTE DISTRESS, NO SOB NOTED. IV SITE INTACT AND PATENT. ALL NEEDS ATTENDED AND PROVIDED. TURN AND REPOSITION PATIENT EVERY 2HR. KEPT PATIENT SAFE AND COMFORTABLE. BED IN LOW LOCKED POSITION, HEAD OF BED ELEVATED, SIDERAILS UPX2. CALL LIGHT IN REACH. ENDORSED TO NIGHT RN FOR SERGIO.
--- NOTE | 2017-04-24 19:30 | NUR ---
ms rn note received patient awake in bed. Confused. No respiratory distress or s/s of pain noted. Receiving 2L O2 via nasal cannula. Cleaned patient and changed wound dressings. Iv site intact with fluids running as ordered. Gtube feeding running as ordered, with no residual noted. Contact isolation precautions observed at all times. Bed locked and in lowest position, side rails up, call light within reach. Will continue to monitor.
[2017-04-24] MEDS: ATORVASTATIN 10 MG TABLET GT SCH (21:48)
[2017-04-25] MEDS: IV D5W 1,000 ML IV SCH ×2 (05:43→12:11)
[2017-04-25] MEDS: PIPERACILLIN /TAZOBACTAM 3.375 G in IV D5W 50 ML IV SCH ×4 (05:43→23:53)
--- NOTE | 2017-04-25 06:10 | NUR ---
ms rn note Patient stable. Kept clean, dry and comfortable. Dressings C/D/I. Gtube site clean, with no s/s of infection. Feeding running as ordered. Will endorse to day shift for mahendra.
--- NOTE | 2017-04-25 07:30 | NUR ---
RN OPENING NOTES RECEIVED PATIENT IN BED AWAKE. NO ACUTE DISTRESS, NO SOB NOTED. DENIES PAIN OR DISCOMFORT. IV SITE INTACT AND PATENT. GTUBE IN PLACE. BED IN LOW POSITION, LOCKED, SIDERAILS UPX2. CALL LIGHT IN REACH. WILL CONTINUE TO MONITOR ACCORDINGLY.
[2017-04-25 07:56] LABS: EOSINOPHILS # (AUTO) 0.1 /CMM (0.0-0.7); EOSINOPHILS % (AUTO) 0.7 % (0.0-6.0); HEMATOCRIT 25 % (39-51); HEMOGLOBIN 8.4 g/dL (13.5-17.5); LYMPHOCYTES # (AUTO) 0.8 /CMM (0.8-4.8); LYMPHOCYTES % (AUTO) 6.8 % (20.0-44.0); MEAN CORPUSCULAR HEMOGLOBIN 31 PG (26.0-33.0); MEAN CORPUSCULAR HGB CONC 34 g/dl (31.0-36.0); MEAN CORPUSCULAR VOLUME 91 fL (80-96); MONOCYTES # (AUTO) 0.7 /CMM (0.1-1.30); MONOCYTES % (AUTO) 5.5 % (2.0-12.0); NEUTROPHILS # (AUTO) 10.5 /CMM (1.8-8.9); PLATELET COUNT (AUTO) 78 /CMM (150-450); RDW COEFFICIENT OF VARIATION 15.9 (11.5-15.0); RED BLOOD CELL COUNT(AUTO) 2.72 MIL/uL (4.5-6.0); WHITE BLOOD COUNT (AUTO) 12.1 K/uL (4.3-11.0)
[2017-04-25 08:00] VITALS: BP 132/63
[2017-04-25 08:12] LABS: CALCIUM, SERUM 7.4 mg/dL (8.5-10.1); CARBON DIOXIDE 19 mmol/L (21-32); CHLORIDE 120 mmol/L (98-107); CREATININE 1.2 mg/dL (0.6-1.3); GLUCOSE 143 mg/dL (74-106); MAGNESIUM 1.9 mg/dL (1.8-2.4); SODIUM SERUM 150 mmol/L (136-145); UREA NITROGEN, BLOOD 43 mg/dL (7-18)
[2017-04-25 08:27] LABS: POTASSIUM 2.7 mmol/L (3.5-5.1)
--- NOTE | 2017-04-25 08:38 | NUR ---
RN NOTES NOTIFIED DR YANET ADAMS FOR CRITICAL POTASSIUM LEVEL OF 2.7. WILL CONTINUE TO MONIOTR PATIENT ACCORDINGLY.
[2017-04-25] MEDS: VANCOMYCIN 0.75 GM in IV D5W 250 ML IV SCH (08:47)
[2017-04-25] MEDS ORDERED: POTASSIUM CHLORIDE 20 MEQ TAB.PRT.SR PO ONE (09:00)
--- NOTE | 2017-04-25 09:00 | NUR ---
RN NOTES FOR LOW POTASSIUM LEVEL, NEW ORDERS NOTED AND CARRIED OUT.
[2017-04-25] MEDS: SUCRALFATE 1 G TABLET GT SCH ×4 (09:13→20:55)
[2017-04-25] MEDS: MULTIVITAMINS,THERAGRAN 1 UDTAB TABLET PO SCH (09:13)
[2017-04-25] MEDS: LEVOTHYROXINE SODIUM 50 MCG TABLET GT SCH (09:14)
[2017-04-25] MEDS: ASCORBIC ACID 500 MG TABLET PO SCH (09:14)
[2017-04-25] MEDS: PANTOPRAZOLE 40 MG VIAL IV SCH ×2 (09:14→20:55)
[2017-04-25] MEDS: DAKINS QUARTER STRENGTH (0.125%) 480 ML BOTTLE TOP SCH (09:36)
[2017-04-25] MEDS: CADEXOMER IODINE 40 GM TUBE TP SCH (09:36)
[2017-04-25] MEDS: MUPIROCIN OINT 2% 22 GM TUBE SCH ×2 (09:36→20:56)
[2017-04-25] MEDS: NEOMY SULF/BACITRAC ZN/POLY 15 GM TUBE TP SCH ×2 (09:36→17:00)
[2017-04-25] MEDS: POTASSIUM CHLORIDE 20 MEQ POWDER PACKET PO SCH ×3 (09:36→13:58)
[2017-04-25] MEDS: Z GUARD REMEDY 2 OZ OINT TP SCH (09:37)
[2017-04-25] MEDS ORDERED: POTASSIUM CHLORIDE 20 MEQ TAB.PRT.SR PO SCH (10:00)
[2017-04-25] MEDS: POTASSIUM CL. PREMIX PERIPHER. 50 ML IV SCH ×4 (10:36→18:40)
--- NOTE | 2017-04-25 12:00 | NUR ---
RN NOTES VERIFIED WITH SIMONA HOLLEY TO RESUME TUBE FEEDING AND D5W FLUID HYDRATION. WILL CONTINUE TO MONITOR ACCORDINGLY.
[2017-04-25] MEDS ORDERED: POTASSIUM CHLORIDE 20 MEQ POWDER PACKET PO SCH (14:00)
[2017-04-25 14:34] LABS: BAND % (MANUAL) 2 % (0.0-5.0); LYMPHOCYTES % (MANUAL) 8 % (16-48); MONOCYTES % (MANUAL) 8 % (0-11.0); NEUTROPHILS % (MANUAL) 82 (42-76)
[2017-04-25] MEDS: FIBERSOURCE HN 1,000 ML BOTTLE GT PRN (15:24)
[2017-04-25 16:00] VITALS: BP 141/69
--- NOTE | 2017-04-25 19:30 | NUR ---
RN NOTES Receieved apteitn in bed, asleep but easily arouseable to verbal and tactile stimuli. Receievd patient with IV fluid running, with a container volume of 900ml. Will continue to monitor
--- NOTE | 2017-04-25 19:30 | NUR ---
RN CLOSING NOTES PATIENT IN BED RESTING. NO ACUTE DISTRESS, NO SOB NOTED. ALL NEEDS ATTENDED AND PROVIDED. REPOSITIONED AND TURNED PATIENT EVERY 2 HOURS. KEPT PATIENT SAFE AND COMFORTABLE. BED IN LOW POSITION,LOCKED, HEAD OF BED ELEVATED, SIDERAILS UPX2. CALL LIGHT IN REACH. ENDORSED TO COUNSELING DIRECTOR RN FOR SERGIO.
[2017-04-25 20:00] VITALS: BP 165/89
[2017-04-25] MEDS: ATORVASTATIN 10 MG TABLET GT SCH (21:03)
[2017-04-26 01:24] VITALS: BP 158/78
[2017-04-26] MEDS: PIPERACILLIN /TAZOBACTAM 3.375 G in IV D5W 50 ML IV SCH ×3 (05:05→17:51)
--- NOTE | 2017-04-26 06:25 | NUR ---
RN notes No significant change in condition. Patient is awake and alert, no chnage in LOC, no SOB noted, skin warm and dry to touch. Gtube feeding kept patent and intact, flushed with H2O as ordered to maintain patency, no gastic residual noted. Checked placement befor giving medications. Wound care done as ordered, patient able to tolerate well. All due meds given, All needs attended. Repositioned as scheduled. Will continue to monitor.
[2017-04-26 07:39] LABS: BASOPHILS % (AUTO) 0.2 % (0.0-2.0); EOSINOPHILS # (AUTO) 0.1 /CMM (0.0-0.7); EOSINOPHILS % (AUTO) 0.7 % (0.0-6.0); HEMATOCRIT 24 % (39-51); HEMOGLOBIN 8.3 g/dL (13.5-17.5); LYMPHOCYTES % (AUTO) 8.1 % (20.0-44.0); MEAN CORPUSCULAR HEMOGLOBIN 32 PG (26.0-33.0); MEAN CORPUSCULAR HGB CONC 34 g/dl (31.0-36.0); MEAN CORPUSCULAR VOLUME 93 fL (80-96); MONOCYTES # (AUTO) 0.7 /CMM (0.1-1.30); MONOCYTES % (AUTO) 5.6 % (2.0-12.0); NEUTROPHILS # (AUTO) 10.3 /CMM (1.8-8.9); NEUTROPHILS % (AUTO) 85.4 % (43.0-81.0); PLATELET COUNT (AUTO) 88 /CMM (150-450); RDW COEFFICIENT OF VARIATION 16.8 (11.5-15.0); RED BLOOD CELL COUNT(AUTO) 2.64 MIL/uL (4.5-6.0); WHITE BLOOD COUNT (AUTO) 12.1 K/uL (4.3-11.0)
--- NOTE | 2017-04-26 07:40 | NUR ---
MS/RN OPENING NOTE PATIENT RECEIVED IN BED IN STABLE CONDITION. A/O X 2. NO SIGNS OF ACUTE DISTRESS. NO COMPLAIN OF PAIN OR DISCOMFORT. ON GT FEEDING TOLERATED WELL. HOB ELEVATED FOR ASPIRATION PRECAUTION. ALL NEEDS ATTENDED TO. CALL LIGHT WITHIN REACH. WILL CONTINUE TO MONITOR TO ENSURE SAFETY.
[2017-04-26 08:00] VITALS: BP 155/68
[2017-04-26 08:13] LABS: CALCIUM, SERUM 6.5 mg/dL (8.5-10.1); CARBON DIOXIDE 17 mmol/L (21-32); CHLORIDE 104 mmol/L (98-107); CREATININE 1.1 mg/dL (0.6-1.3); MAGNESIUM 1.7 mg/dL (1.8-2.4); PHOSPHORUS 2.4 mg/dL (2.5-4.9); POTASSIUM 3.1 mmol/L (3.5-5.1); SODIUM SERUM 131 mmol/L (136-145); UREA NITROGEN, BLOOD 34 mg/dL (7-18)
[2017-04-26 08:16] LABS: GLUCOSE 600 mg/dL (74-106)
--- NOTE | 2017-04-26 08:19 | NUR ---
MS/RN CRITICAL GLUCOSE RECEIVED CALL FROM LAB AND PER LAB PATIENT GLUCOSE IS [address] HOLT AT THIS TIME.
--- NOTE | 2017-04-26 08:24 | NUR ---
MS/RN SPOKE WITH DR HOLT SPOKE WITH DR HOLT REGARDING CRITICAL GLUCOSE OF [address] HOLT, "HE WILL LOOK INTO IT."' AND GIVE REGULAR INSULIN 20UNITS SQ X 1 NOW. ORDERS NOTED AND CARRIED OUT.
[2017-04-26] MEDS ORDERED: INSULIN REGULAR, HUMAN 100 UNIT/ML 10 ML VIAL SQ ONE (09:00)
[2017-04-26 09:09] LABS: ALANINE AMINOTRANSFERASE 18 U/L (12-78); ALKALINE PHOSPHATASE 138 U/L (46-116); ASPARTATE AMINOTRANSFERASE 19 U/L (15-37); BILIRUBIN,TOTAL 0.4 mg/dL (0.2-1.0); CALCIUM, SERUM 6.8 mg/dL (8.5-10.1); CARBON DIOXIDE 16 mmol/L (21-32); CHLORIDE 102 mmol/L (98-107); MAGNESIUM 1.7 mg/dL (1.8-2.4); PHOSPHORUS 2.1 mg/dL (2.5-4.9); POTASSIUM 3.1 mmol/L (3.5-5.1); SODIUM SERUM 130 mmol/L (136-145); TOTAL PROTEIN, SERUM 3.8 g/dL (6.4-8.2); UREA NITROGEN, BLOOD 33 mg/dL (7-18)
[2017-04-26 09:13] LABS: ALBUMIN 1.1 g/dL (3.4-5.0); GLUCOSE 607 mg/dL (74-106)
--- NOTE | 2017-04-26 09:13 | NUR ---
MS/RN CRITICAL ALBUMIN AND GLUCOSE RECEIVED CALL FROM LAB, PER GERI PATIENT HAS CRITICAL ALBUMIN 1.[address] HOLT NOTIFIED.
[2017-04-26] MEDS: VANCOMYCIN 0.75 GM in IV D5W 250 ML IV SCH (09:20)
[2017-04-26] MEDS: ASCORBIC ACID 500 MG TABLET PO SCH (09:21)
[2017-04-26] MEDS: SUCRALFATE 1 G TABLET GT SCH ×4 (09:21→21:16)
[2017-04-26] MEDS: PANTOPRAZOLE 40 MG VIAL IV SCH ×2 (09:22→21:16)
[2017-04-26] MEDS: MUPIROCIN OINT 2% 22 GM TUBE SCH ×2 (09:23→21:17)
[2017-04-26] MEDS: DAKINS QUARTER STRENGTH (0.125%) 480 ML BOTTLE TOP SCH (09:23)
[2017-04-26] MEDS: Z GUARD REMEDY 2 OZ OINT TP SCH (09:24)
[2017-04-26] MEDS: CADEXOMER IODINE 40 GM TUBE TP SCH (09:24)
[2017-04-26] MEDS: MULTIVITAMINS,THERAGRAN 1 UDTAB TABLET PO SCH (09:24)
[2017-04-26] MEDS: NEOMY SULF/BACITRAC ZN/POLY 15 GM TUBE TP SCH ×2 (09:26→16:34)
[2017-04-26] MEDS: LEVOTHYROXINE SODIUM 50 MCG TABLET GT SCH (09:26)
--- NOTE | 2017-04-26 09:33 | NUR ---
MS/RN SPOKE WITH DR HOLT SPOKE WITH DR HOLT AND MADE AWARE REGARDING CRITICAL ALBUMIN. PER DR HOLT, " HE WILL LOOK INTO IT."
[2017-04-26 09:59] LABS: LYMPHOCYTES % (MANUAL) 9 % (16-48); MONOCYTES % (MANUAL) 6 % (0-11.0); MYELOCYTES % 2 % (0-0); NEUTROPHILS % (MANUAL) 83 (42-76)
[2017-04-26] MEDS ORDERED: DEXTROSE 50%-WATER 50 ML DISP.SYRIN IV PRN (10:30)
[2017-04-26] MEDS: ACETAMINOPHEN 325 MG TABLET PO PRN (13:13)
[2017-04-26] MEDS: Magnesium 1GM/D5W 100ML PREMIX 100 ML IV SCH ×2 (13:13→14:49)
[2017-04-26] MEDS: BLOOD SUGAR DIAGNOSTIC 1 EACH STRIP IN SCH ×2 (13:15→18:00)
[2017-04-26] MEDS: FIBERSOURCE HN 1,000 ML BOTTLE GT PRN (14:09)
[2017-04-26 16:00] VITALS: BP 143/52
[2017-04-26] MEDS: POTASSIUM CL. PREMIX PERIPHER. 50 ML IV SCH ×4 (16:24→21:19)
[2017-04-26] MEDS: IV D5W 1,000 ML IV SCH (18:31)
--- NOTE | 2017-04-26 18:44 | NUR ---
MS/RN CLOSING NOTE PATIENT IN BED IN STABLE CONDITION. A/O X 1. NO SIGNS OF ACUTE DISTRESS. NO COMPLAIN OF PAIN OR DISCOMFORT. HOB ELEVATED TO PREVENT ASPIRATION PRECAUTION. ALL NEEDS ATTENDED TO . CALL LIGHT WITHIN REACH WILL ENDORSE TO NEXT SHIFT FOR CONTINUITY OF CARE.
[2017-04-26] MEDS: ALBUTEROL FS 2.5 MG/3 ML VIAL.NEB NEB PRN (19:36)
--- NOTE | 2017-04-26 19:40 | NUR ---
MS RN OPENING NOTES RECEIVED PATIENT LAYING IN BED SLIGHTLY ON HIS RIGHT SIDE WITH HOB ELEVATED FOR ASPIRATION PRECAUTIONS. A & O X 1 WITH CONFUSION, ON ISOLATION FOR MRSA NARES. ISOLATION PRECAUTIONS OBSERVED. NO S/S OF PAIN, NO SOB, NO ACUTE DISTRESS NOTED AT THIS TIME. ON O2 AT 2LPM VIA NC, BREATHING TX WAS ADMINISTERED BY RT. HAS PICC LINE TO MOOKIE, INTACT & PATENT RUNNING WITH DEXTROSE 5% @ 70ML/HR, POTASSIUM 2ND BAG IS ALSO RUNNING ORDERED BY . GTF IN PLACE RUNNING WITH FIBERSOURCE @ 70ML/HR. RESIDUAL, PLACEMENT & PATENCY CHECKED. SAFETY MEASURES IN PLACE. BED IN LOW LOCKED POSITION. CALL LIGHT WITHIN REACH. CHECKING FREQUENTLY ON THE PATIENT FO SAFETY & COMFORT.
[2017-04-26 20:00] VITALS: BP_SYST 137; BP_SYST 144; BP_DIAS 69; BP_DIAS 70
[2017-04-26] MEDS: ATORVASTATIN 10 MG TABLET GT SCH (21:17)
[2017-04-27] MEDS: PIPERACILLIN /TAZOBACTAM 3.375 G in IV D5W 50 ML IV SCH ×4 (00:17→18:34)
[2017-04-27] MEDS: BLOOD SUGAR DIAGNOSTIC 1 EACH STRIP IN SCH ×4 (00:37→18:16)
--- NOTE | 2017-04-27 02:00 | NUR ---
MS RN NOTES PATIENT WAS REPOSITIONED, KEPT CLEAN & DRY. WOUND DRESSINGS WERE DONE. NO SOB, NO ACUTE CHANGES NOTED. HOB ELEVATED FOE ASPIRATION PRECAUTIONS. ON CONTINUOS GTF, RUNNING AT 70 ML/HR. HAD BM X 1. SAFETY MEASURES IN PLACE. CONTINUING TO MONITOR CLOSELY.
[2017-04-27] MEDS: FIBERSOURCE HN 1,000 ML BOTTLE GT PRN ×2 (04:45→21:52)
[2017-04-27] MEDS: INSULIN REGULAR, HUMAN 100 UNIT/ML 3 ML VIAL SQ PRN ×3 (05:52→18:40)
[2017-04-27 06:44] LABS: EOSINOPHILS % (AUTO) 0.2 % (0.0-6.0); HEMATOCRIT 25 % (39-51); HEMOGLOBIN 8.5 g/dL (13.5-17.5); LYMPHOCYTES # (AUTO) 0.8 /CMM (0.8-4.8); LYMPHOCYTES % (AUTO) 5.8 % (20.0-44.0); MEAN CORPUSCULAR HEMOGLOBIN 31 PG (26.0-33.0); MEAN CORPUSCULAR HGB CONC 34 g/dl (31.0-36.0); MEAN CORPUSCULAR VOLUME 92 fL (80-96); MONOCYTES # (AUTO) 0.6 /CMM (0.1-1.30); MONOCYTES % (AUTO) 4.2 % (2.0-12.0); NEUTROPHILS # (AUTO) 12.2 /CMM (1.8-8.9); NEUTROPHILS % (AUTO) 89.8 % (43.0-81.0); PLATELET COUNT (AUTO) 98 /CMM (150-450); RDW COEFFICIENT OF VARIATION 17.1 (11.5-15.0); RED BLOOD CELL COUNT(AUTO) 2.73 MIL/uL (4.5-6.0); WHITE BLOOD COUNT (AUTO) 13.6 K/uL (4.3-11.0)
--- NOTE | 2017-04-27 07:00 | NUR ---
MS RN CLOSING NOTES PATIENT SLEPT INTERMITTENTLY, A & O X 1 WITH CONFUSION. RESPONSIVE TO SIMPLE DIRECTIONS ONLY DUE TO CONFUSION. NO FACIAL EXPRESSIONS OF PAIN NOTED. RESP EVEN & NONLABORED. AT 2LPM VIA NC. HAS PICC LINE TO MOOKIE RUNNING WITH D5% 70 ML/HR. GTF RUNNING WITH FIBERSOURCE AT 70 ML/HR. HOB ELEVATED. IV ANTIBIOTICS GIVE ORDERED. REPOSITIONED IN BED PER FACILITY PROTOCOL WITH SAFETY MEASURES. KEPT CLEAN & DRY. SPOKE TO DTR & SHE WOULD LIKE TO TALK TO THE MD IN AM. ENDORSED TO AM NURSE. SAFETY MEASURES IN PLACE. BED IN LOW LOCKED POSITION. CALL LIGHT WITHIN REACH. WILL ENDORSE TO AM SHIFT FOR CONTINUITY OF CARE.
[2017-04-27 07:05] LABS: ALANINE AMINOTRANSFERASE 22 U/L (12-78); ALKALINE PHOSPHATASE 150 U/L (46-116); ASPARTATE AMINOTRANSFERASE 17 U/L (15-37); BILIRUBIN,TOTAL 0.5 mg/dL (0.2-1.0); CALCIUM, SERUM 7.7 mg/dL (8.5-10.1); CARBON DIOXIDE 22 mmol/L (21-32); CHLORIDE 114 mmol/L (98-107); GLUCOSE 160 mg/dL (74-106); MAGNESIUM 2.1 mg/dL (1.8-2.4); PHOSPHORUS 1.9 mg/dL (2.5-4.9); POTASSIUM 3.9 mmol/L (3.5-5.1); SODIUM SERUM 143 mmol/L (136-145); TOTAL PROTEIN, SERUM 4.1 g/dL (6.4-8.2); UREA NITROGEN, BLOOD 37 mg/dL (7-18)
[2017-04-27 07:07] LABS: ALBUMIN 1.2 g/dL (3.4-5.0)
[2017-04-27 08:00] VITALS: BP 126/75
--- NOTE | 2017-04-27 08:30 | NUR ---
RN OPENING NOTES RECEIVED PATIENT RESTING COMFORTABLY IN BED WITH EYES CLOSED. PATIENT EASILY AROUSABLE. AOX1 CONFUSED AND ABLE TO ANSWER SOME QUESTIONS. BUE AND BLE EDEMA NOTED. LEFT ARM OOZING EDEMA. DRESSING IN PLACE. SACRAL WOUND CLEAN AND INTACT. MOOKIE PICC LINE IN PLACE. DR. TOLEDO REQUESTING FOR IV FLUIDS TOP BE STOPPED. GTUBE IN PLACE PATENT AND INTACT. FIBERSOURCE AT 70ML/HR RUNNING. WILL CHECK RESIDUALS PRIOR TO GROUP SEGMENT CONSULTANT. REQUESTED FROM DR. TOLEDO DNR/DNI ORDERS. DENIES CP. STATES HE HAS SOB. NC IN PLACE AT 2LPM. SATURATING WELL. RESPIRATIONS EVEN AND UNLABORED. NO ACUTE DISTRESS. BED LOCKED IN THE LOWEST POSITION WITH SIDERAILS UP X2. CALL LIGHT WITHIN REACH. WILL CONTINUE TO MONITOR, ASSESS AND EDUCATE PATIENT THROUGHOUT SHIFT.
[2017-04-27 08:47] LABS: BAND % (MANUAL) 3 % (0.0-5.0); LYMPHOCYTES % (MANUAL) 2 % (16-48); MONOCYTES % (MANUAL) 6 % (0-11.0); NEUTROPHILS % (MANUAL) 89 (42-76)
[2017-04-27] MEDS: ASCORBIC ACID 500 MG TABLET PO SCH (11:31)
[2017-04-27] MEDS: PANTOPRAZOLE 40 MG VIAL IV SCH ×2 (11:31→21:44)
[2017-04-27] MEDS: LEVOTHYROXINE SODIUM 50 MCG TABLET GT SCH (11:31)
[2017-04-27] MEDS: SUCRALFATE 1 G TABLET GT SCH ×4 (11:31→21:45)
[2017-04-27] MEDS: NEOMY SULF/BACITRAC ZN/POLY 15 GM TUBE TP SCH ×2 (11:33→21:45)
[2017-04-27] MEDS: DAKINS QUARTER STRENGTH (0.125%) 480 ML BOTTLE TOP SCH (11:35)
[2017-04-27] MEDS: Z GUARD REMEDY 2 OZ OINT TP SCH (11:38)
[2017-04-27] MEDS: MULTIVITAMINS,THERAGRAN 1 UDTAB TABLET PO SCH (11:53)
[2017-04-27] MEDS: VANCOMYCIN 0.75 GM in IV D5W 250 ML IV SCH (12:16)
[2017-04-27] MEDS: MUPIROCIN OINT 2% 22 GM TUBE SCH ×2 (13:45→21:53)
[2017-04-27] MEDS: CADEXOMER IODINE 40 GM TUBE TP SCH (13:45)
[2017-04-27] MEDS ORDERED: K PHOS NEUTRAL 250 MG TABLET PO ONE ×2 (15:30→18:30)
[2017-04-27 16:00] VITALS: BP 168/76
--- NOTE | 2017-04-27 18:07 | NUR ---
RN NON ADMIN NOTES ORDER FOR JAXON BUSCHS RE ENTERED BY PHARMACY. UNABLE TO PULL FROM [employer]. NON ADMIN PREVIOUS ORDER PER PHARMACIST
--- NOTE | 2017-04-27 18:12 | NUR ---
RN NOTES CALLED PHARMACY FOR NEOSPORIN OINTMENT. PHARMACIST JUAN JOSÉ SAID HE WILL SEND ANOTHER NEOSPORIN.
[2017-04-27] MEDS: ALBUTEROL FS 2.5 MG/3 ML VIAL.NEB NEB PRN (18:59)
--- NOTE | 2017-04-27 19:15 | NUR ---
RN CLOSING NOTES PATIENT RESTING COMFORTABLY IN BED. AOX1/2. NO COMPLAINTS OF PAIN. RESPIRATIONS EVEN AND UNLABORED. SATURATING WELL ON 2LPM. NO ACUTE DISTRESS. WILL CONTINUE TO MONITOR. ALL DRESSING CHANGES DONE. CONDITION REMAINS UNCHANGED. GTUBE IN PLACE. IV ACCESS PATENT AND INTACT. ALL NEEDS MET. ALL MEDS GIVEN APPROPRIATE. BED LOCKED IN THE LOWEST POSITION WITH SIDE RAILS UPS X2. WILL ENDORSE TO NIGHT RN FOR SERGIO.
--- NOTE | 2017-04-27 19:15 | NUR ---
RN NOTES NO NEOSPORIN RECEIVED BY END OF SHIFT. WILL ENDORSE TO NIGHT RN TO ADMINISTER NEOSPORIN.
--- NOTE | 2017-04-27 19:35 | NUR ---
MS RN OPENING NOTES RECEIVED PATIENT AWAKE, A & O X 1 WITH CONFUSION. BED BOUND, INCONTINENT.VERBALLY RESPONSIVE TO SIMPLE QUESTIONS WITH YES OR NO. RESP EVEN & NON LABORED, SLIGHT WHEEZING HEARD ON RIGHT & LEFT CHEST, BREATHING TREATMENT WAS GIVEN BY RT LESS THAN AN HOUR AGO. ON O2 @ 2LPM VIA NC. HOB ELEVATED. ON GTF FIBERSOURCE HN @ 70 ML/HR WITH ASPIRATION PRECAUTIONS, TOLERATING WELL. PICC LINE ACCESS TO MOOKIE, INTACT PATENT. NO S/S OF INFECTION NOTED. HAS MULTIPLE SITES OF SKIN INTEGRITY. WILL KEEP CLEAN & DRY, ALSO WILL TURN & REPOSITION PER PROTOCOL. SIDE RAILS x 2 UP FOR SAFETY. BED IN LOW LOCKED POSITION. CALL LIGHT WITHIN REACH. WILL CONTINUE TO MONITOR CLOSELY.
[2017-04-27 20:00] VITALS: BP 131/72
--- NOTE | 2017-04-27 20:00 | NUR ---
NEOSPORIN RECEIVED RECEIVED NEOSPORIN FROM PHARMACY, SKIN TREATMENT DONE. KEEPING CLEAN & DRY. PATIENT NOTED TO BE AGITATED, HOLDS ONTO STAFF HANDS TIGHTLY DURING ADL CARE. HANDLED GENTLY. WILL MONITOR CLOSELY.
[2017-04-27] MEDS: ATORVASTATIN 10 MG TABLET GT SCH (21:44)
[2017-04-27 22:00] VITALS: BP 131/72
[2017-04-28] MEDS: PIPERACILLIN /TAZOBACTAM 3.375 G in IV D5W 50 ML IV SCH ×4 (00:02→18:34)
[2017-04-28] MEDS: BLOOD SUGAR DIAGNOSTIC 1 EACH STRIP IN SCH ×4 (00:05→18:34)
--- NOTE | 2017-04-28 00:05 | NUR ---
SUCTIONED BY RT PATIENT NOTED WITH WHEEZING & HEARD GURGLING. O2SAT WAS 94%. NO DISTRESS NOTED. RT MADE AWARE. SUCTIONING DONE BY RT, TOLERATED WELL. NO MORE GURGLING HEARD, SUCTIONING EFFECTIVE. O2SAT 95 %. WILL REASSESS AGAIN.
--- NOTE | 2017-04-28 02:21 | NUR ---
MS RN NOTES PATIENT NOTED TO BE SLEEPING COMFORTABLY, NO SOB, NO SECRETIONS HEARD.
--- NOTE | 2017-04-28 06:43 | NUR ---
MS RN CLOSING NOTES PATIENT SLEPT INTERMITTENTLY AT NIGHT. A & O X 1 WITH CONFUSION. RESP EVEN & NON LABORED, ON O2 @ 2 LPM VIA NC. HOB ELEVATED. SCHEDULED MEDS ADMINISTERED. GTF RUNNING @ 70 ML/HR WITH ASPIRATION PRECAUTIONS. TOLERATED WELL. MOOKIE PICC LINE, INTACT PATENT. TURNED/REPOSITIONED PER PROTOCOL. WOUND CARE DONE. KEPT CLEAN & DRY. ALL NEEDS MET. SAFETY MEASURES IN PLACE. BED IN LOW LOCKED POSITION. CALL LIGHT WITHIN REACH. WILL ENDORSE TO AM RN FOR CONTINUITY OF CARE.
--- NOTE | 2017-04-28 06:45 | NUR ---
MS RN NOTES SPOKE TO THE DTR OVER THE PHONE & GAVE HER UPDATES ABOUT PATIENTS CONDITION.
--- NOTE | 2017-04-28 07:25 | NUR ---
RN OPEN NOTES RECEIVED PATIENT RESTING IN BED. A/O X1. NO SIGNS OF DISTRESS OR DISCOMFORT. BREATHING EVEN AND UNLABORED. ON 2LPM O2 VIA NC. GTUBE INTACT WITH FEEDING RUNNING, PATIENT TOLERATING WELL. HAS MOOKIE PICC LINE, PATENT AND INTACT, NO SIGNS OF REDNESS OR INFILTRATION. BED IN LOW LOCKED POSITION WITH SIDE RAILS X2. HOB ELEVATED. CALL LIGHT WITHIN REACH. WILL CONTINUE TO MONITOR. ISOLATION PRECAUTIONS OBSERVED
[2017-04-28 08:00] VITALS: BP 129/65
[2017-04-28 08:04] LABS: CALCIUM, SERUM 7.5 mg/dL (8.5-10.1); CARBON DIOXIDE 19 mmol/L (21-32); CHLORIDE 115 mmol/L (98-107); CREATININE 0.9 mg/dL (0.6-1.3); GLUCOSE 136 mg/dL (74-106); POTASSIUM 4.4 mmol/L (3.5-5.1); SODIUM SERUM 143 mmol/L (136-145); UREA NITROGEN, BLOOD 34 mg/dL (7-18)
[2017-04-28] MEDS: LEVOTHYROXINE SODIUM 50 MCG TABLET GT SCH (08:36)
[2017-04-28] MEDS: MULTIVITAMINS,THERAGRAN 1 UDTAB TABLET PO SCH (08:36)
[2017-04-28] MEDS: ASCORBIC ACID 500 MG TABLET PO SCH (08:36)
[2017-04-28] MEDS: VANCOMYCIN 0.75 GM in IV D5W 250 ML IV SCH (09:06)
[2017-04-28] MEDS: PANTOPRAZOLE 40 MG VIAL IV SCH ×2 (09:06→21:39)
[2017-04-28] MEDS: MUPIROCIN OINT 2% 22 GM TUBE SCH ×2 (09:07→21:38)
[2017-04-28] MEDS: CADEXOMER IODINE 40 GM TUBE TP SCH (09:07)
[2017-04-28] MEDS: NEOMY SULF/BACITRAC ZN/POLY 15 GM TUBE TP SCH ×2 (09:08→16:18)
[2017-04-28] MEDS: DAKINS QUARTER STRENGTH (0.125%) 480 ML BOTTLE TOP SCH (09:08)
[2017-04-28] MEDS: SUCRALFATE 1 G TABLET GT SCH ×4 (10:14→21:39)
[2017-04-28] MEDS: INSULIN REGULAR, HUMAN 100 UNIT/ML 3 ML VIAL SQ PRN (12:16)
[2017-04-28] MEDS: Z GUARD REMEDY 2 OZ OINT TP SCH (14:12)
[2017-04-28] MEDS: SOD FERRIC GLUC 125 MG in IV NS 0.9% 100 ML IV SCH (14:55)
[2017-04-28 16:00] VITALS: BP 137/70
[2017-04-28] MEDS: FIBERSOURCE HN 1,000 ML BOTTLE GT PRN (16:16)
[2017-04-28] MEDS: ALBUTEROL FS 2.5 MG/3 ML VIAL.NEB NEB PRN (17:59)
--- NOTE | 2017-04-28 19:35 | NUR ---
RN NOTES PATIENT RESTING IN BED. A/O X1. NO SIGNS OF DISTRESS OR DISCOMFORT. BREATHING EVEN AND UNLABORED. ON 2LPM O2 VIA NC. GTUBE INTACT WITH FEEDING RUNNING, PATIENT TOLERATING WELL. HAS MOOKIE PICC LINE, PATENT AND INTACT, NO SIGNS OF REDNESS OR INFILTRATION. BED IN LOW LOCKED POSITION WITH SIDE RAILS X2. HOB ELEVATED. CALL LIGHT WITHIN REACH.ISOLATION PRECAUTIONS OBSERVED ENDORSED TO NEXT SHIFT FOR CONTINUITY OF CARE
[2017-04-28 20:00] VITALS: BP 136/56
[2017-04-28] MEDS: ATORVASTATIN 10 MG TABLET GT SCH (21:38)
[2017-04-29] MEDS: PIPERACILLIN /TAZOBACTAM 3.375 G in IV D5W 50 ML IV SCH ×4 (00:10→17:41)
[2017-04-29] MEDS: BLOOD SUGAR DIAGNOSTIC 1 EACH STRIP IN SCH ×4 (00:10→16:47)
[2017-04-29] MEDS: INSULIN REGULAR, HUMAN 100 UNIT/ML 3 ML VIAL SQ PRN ×2 (06:07→17:51)
[2017-04-29] MEDS: FIBERSOURCE HN 1,000 ML BOTTLE GT PRN (06:07)
--- NOTE | 2017-04-29 06:53 | NUR ---
RN CLOSING NOTES PATIENT RESTING IN BED. A/O X1. NO SIGNS OF DISTRESS OR DISCOMFORT. BREATHING EVEN AND UNLABORED. ON 2LPM O2 VIA NC. GTUBE INTACT WITH FEEDING RUNNING, PATIENT TOLERATING WELL. HAS MOOKIE PICC LINE, PATENT AND INTACT, NO SIGNS OF REDNESS OR INFILTRATION. ALL NEEDS MET. NO SIGNIFICANT CHANGES THROUGH THE NIGHT. REPOSITIONED Q2H. ALL DRESSING C/D/I. BED IN LOW LOCKED POSITION WITH SIDE RAILS X2. HOB ELEVATED. CALL LIGHT WITHIN REACH. WILL ENDORSE TO AM SHIFT FOR SERGIO.
[2017-04-29 07:30] LABS: BASOPHILS % (AUTO) 0.1 % (0.0-2.0); EOSINOPHILS % (AUTO) 0.4 % (0.0-6.0); HEMATOCRIT 25 % (39-51); HEMOGLOBIN 8.3 g/dL (13.5-17.5); LYMPHOCYTES # (AUTO) 0.6 /CMM (0.8-4.8); LYMPHOCYTES % (AUTO) 5.2 % (20.0-44.0); MEAN CORPUSCULAR HEMOGLOBIN 31 PG (26.0-33.0); MEAN CORPUSCULAR HGB CONC 33 g/dl (31.0-36.0); MEAN CORPUSCULAR VOLUME 93 fL (80-96); MONOCYTES # (AUTO) 0.5 /CMM (0.1-1.30); MONOCYTES % (AUTO) 4.7 % (2.0-12.0); NEUTROPHILS # (AUTO) 10.1 /CMM (1.8-8.9); NEUTROPHILS % (AUTO) 89.6 % (43.0-81.0); PLATELET COUNT (AUTO) 111 /CMM (150-450); RDW COEFFICIENT OF VARIATION 23.6 (11.5-15.0); RED BLOOD CELL COUNT(AUTO) 2.67 MIL/uL (4.5-6.0); WHITE BLOOD COUNT (AUTO) 11.2 K/uL (4.3-11.0)
[2017-04-29 07:37] LABS: CALCIUM, SERUM 7.9 mg/dL (8.5-10.1); CARBON DIOXIDE 23 mmol/L (21-32); CHLORIDE 113 mmol/L (98-107); CREATININE 0.8 mg/dL (0.6-1.3); GLUCOSE 140 mg/dL (74-106); MAGNESIUM 2.1 mg/dL (1.8-2.4); POTASSIUM 4.2 mmol/L (3.5-5.1); SODIUM SERUM 143 mmol/L (136-145); UREA NITROGEN, BLOOD 33 mg/dL (7-18)
[2017-04-29 08:00] VITALS: BP 145/71
--- NOTE | 2017-04-29 08:00 | NUR ---
RN NOTES RECEIVED PATIENT IN THE THE BED , ON MRSA OF ISOLATION, G-TUBE RESIDUAL, AND PLACEMENT CHECKED, MEDICATION GIVEN VIA G-TUBE, FLASHED WITH 30 ML OF WATER, FIBERSOURCE 70 ML/HR, IV PICC LINE LEFT UPPER ARM, INTACT, HOB ELEVATED FOR ASPIRATION PRECAUTION, ASSIST TURN AND REPOSITION Q 2 HR, CALL LIGHT WITHIN TO REACH, BED ALARM ON, SAFETY PRECAUTION MAINTAINED ALL THE TIME. CONTINUED MONITORING.
[2017-04-29] MEDS: MULTIVITAMINS,THERAGRAN 1 UDTAB TABLET PO SCH (09:02)
[2017-04-29] MEDS: LEVOTHYROXINE SODIUM 50 MCG TABLET GT SCH (09:02)
[2017-04-29] MEDS: ASCORBIC ACID 500 MG TABLET PO SCH (09:02)
[2017-04-29] MEDS: MUPIROCIN OINT 2% 22 GM TUBE SCH ×2 (09:03→21:25)
[2017-04-29] MEDS: PANTOPRAZOLE 40 MG VIAL IV SCH ×2 (09:42→21:27)
[2017-04-29] MEDS: SUCRALFATE 1 G TABLET GT SCH ×4 (09:42→21:27)
[2017-04-29] MEDS: NEOMY SULF/BACITRAC ZN/POLY 15 GM TUBE TP SCH ×2 (09:43→16:47)
[2017-04-29] MEDS: CADEXOMER IODINE 40 GM TUBE TP SCH (09:43)
[2017-04-29] MEDS: Z GUARD REMEDY 2 OZ OINT TP SCH (09:43)
[2017-04-29] MEDS: DAKINS QUARTER STRENGTH (0.125%) 480 ML BOTTLE TOP SCH (09:45)
[2017-04-29] MEDS: VANCOMYCIN 0.75 GM in IV D5W 250 ML IV SCH (09:47)
--- NOTE | 2017-04-29 12:00 | NUR ---
RN NOTES PATIENT IN THE BED , NO RESPIRATORY DISTRESS, O2 -2L NC, LOND SOUNDS DIMINISHED, BS- 116 MG/DL, MEDICATION GIVEN VIA G-TUBE, FEEDING FIBERSOURCE 70 ML/HR, PATIENT TOLERATED FEEDING, HOB ELEVATED, NO ASPIRATION PRECAUTION, EDEMA LOWER AND UPPER EXTREMITIES, ALSO EDEMA ON NECK AREA, PATIENT HAS NO C/O PAIN AT THIS TIME, ASSIST TURN AND REPOSITION Q 2 HR. DRESSING CHANGED, CALL SHAH WITHIN TO REACH, SAFETY PRECAUTION MAINTAINED ALL THE TIME. CONTINUED MONITORING.
[2017-04-29] MEDS ORDERED: FUROSEMIDE 20 MG/2 ML VIAL IV ONE (12:30)
[2017-04-29] MEDS: SOD FERRIC GLUC 125 MG in IV NS 0.9% 100 ML IV SCH (15:29)
[2017-04-29 16:00] VITALS: BP 163/75
--- NOTE | 2017-04-29 17:00 | NUR ---
RN NOTES PATIENT IN THE ROOM, NO RESPIRATORY DISTRESS, BS-138 MG/DL, V/S STABLE, ASSIST PATIENT TURN, AND REPOSITION Q 2 HR AND PRN, G-TUBE FEEDING 70 ML /HR INTACT, NEEDS ATTENDED AND ANTICIPATED, CALL SHAH WITHIN TO REACH, DRESSING CHANGED, MEDICATION GIVEN VIA G-TUBE, SAFETY PRECAUTION MAINTAINED ALL THE TIME.
[2017-04-29] MEDS: ALBUTEROL FS 2.5 MG/3 ML VIAL.NEB NEB PRN (18:12)
--- NOTE | 2017-04-29 18:53 | NUR ---
RN NOTES PATIENT STABLE AT THIS TIME, NO ACUTE RESPIRATORY DISTRESS, V/S STABLE, HOB ELEVATED FOR ASPIRATION PRECAUTION, FAMILY NEXT TO THE BED, G-TUBE RUNNING FIBERSOURCE 70 ML/HR, INTACT. ASSIST PATIENT TURN AND REPOSITION Q 2 HR, SAFETY PRECAUTION MAINTAINED ALL THE TIME, IV PICC LINE INTACT DRESSING CHANGED. CALL LIGHT WITHIN TO REACH, BED ALARM ON. ENDORSED ONCOMING NURSE FOR CONTINUATION OF CARE.
--- NOTE | 2017-04-29 19:30 | NUR ---
RN NOTES RECEIVED PATIENT IN BED AWAKE, AO X 1, VERBALLY RESPONSIVE. NO ACUTE DISTRESS NOTED. NO SIGNS OF PAIN NOTED. MOOKIE PICC LINE PATENT, INTACT; FLUSHED. GT PATENT, INTACT; IN PLACE VIA AUSCULTATION. GTF FIBERSOURCE ONGOING AT 70 ML/HOUR ORDERED. HOB RAISED. ASPIRATION PRECAUTION MAINTAINED. CONTACT ISOLATION MAINTAINED FOR MRSA NARES. WILL REPOSITION Q 2 HOURS. BLE OFFLOADED. ON LOW BED WITH BILATERAL UPPER SIDE RAILS UP. CALL LIGHT WITHIN EASY REACH. WILL CONTINUE TO MONITOR.
[2017-04-29 20:00] VITALS: BP 137/64
[2017-04-29] MEDS: ATORVASTATIN 10 MG TABLET GT SCH (21:27)
[2017-04-30] MEDS: PIPERACILLIN /TAZOBACTAM 3.375 G in IV D5W 50 ML IV SCH ×4 (00:22→17:01)
[2017-04-30] MEDS: BLOOD SUGAR DIAGNOSTIC 1 EACH STRIP IN SCH ×4 (00:22→17:03)
[2017-04-30] MEDS: FIBERSOURCE HN 1,000 ML BOTTLE GT PRN ×2 (01:51→17:28)
[2017-04-30] MEDS: INSULIN REGULAR, HUMAN 100 UNIT/ML 3 ML VIAL SQ PRN ×2 (05:32→11:25)
--- NOTE | 2017-04-30 06:29 | NUR ---
RN NOTES PATIENT ASLEEP, EASILY AROUSABLE. RESPIRATIONS EVEN. NO SIGNS OF PAIN NOTED. DUE MEDS GIVEN WITH NO ASE NOTED. NEEDS ATTENDED. NO SYMPTOMS OF HYPER/HYPOGLYCEMIA. SAFETY PRECAUTIONS AND COMFORT MEASURES IN PLACE. WILL GIVE REPORT TO DAY SHIFT FOR CONTINUITY OF CARE.
[2017-04-30 07:08] LABS: EOSINOPHILS % (AUTO) 0.2 % (0.0-6.0); HEMATOCRIT 26 % (39-51); HEMOGLOBIN 8.5 g/dL (13.5-17.5); LYMPHOCYTES # (AUTO) 0.7 /CMM (0.8-4.8); LYMPHOCYTES % (AUTO) 7.2 % (20.0-44.0); MEAN CORPUSCULAR HEMOGLOBIN 31 PG (26.0-33.0); MEAN CORPUSCULAR HGB CONC 33 g/dl (31.0-36.0); MEAN CORPUSCULAR VOLUME 94 fL (80-96); MONOCYTES # (AUTO) 0.5 /CMM (0.1-1.30); MONOCYTES % (AUTO) 5.2 % (2.0-12.0); NEUTROPHILS % (AUTO) 87.4 % (43.0-81.0); PLATELET COUNT (AUTO) 125 /CMM (150-450); RDW COEFFICIENT OF VARIATION 22.6 (11.5-15.0); RED BLOOD CELL COUNT(AUTO) 2.71 MIL/uL (4.5-6.0); WHITE BLOOD COUNT (AUTO) 9.2 K/uL (4.3-11.0)
--- NOTE | 2017-04-30 07:15 | NUR ---
RN NOTES PT IS IN BED, SLEEPING COMFORTABLY. PT ON 2L O2 VIA NASAL CANNULA, RESPIRATIONS ARE EVEN AND UNLABORED. MOOKIE PICC LINE INTACT AND PATENT. G-TUBE INTACT AND RUNNING FIBERSOURCE @ 70ML/HR. SAFETY MEASURES ARE IN PLACE, CALL LIGHT IS IN REACH. WILL CONTINUE TO MONITOR.
[2017-04-30 07:16] LABS: CALCIUM, SERUM 7.8 mg/dL (8.5-10.1); CARBON DIOXIDE 25 mmol/L (21-32); CHLORIDE 113 mmol/L (98-107); CREATININE 0.9 mg/dL (0.6-1.3); GLUCOSE 125 mg/dL (74-106); POTASSIUM 4.1 mmol/L (3.5-5.1); SODIUM SERUM 145 mmol/L (136-145); UREA NITROGEN, BLOOD 34 mg/dL (7-18)
[2017-04-30] MEDS: VANCOMYCIN 0.75 GM in IV D5W 250 ML IV SCH (07:45)
[2017-04-30 08:00] VITALS: BP 147/70
--- NOTE | 2017-04-30 08:00 | NUR ---
RN NOTES AM VANCO TROUGH CAME BACK AT 24. PER DOSE INSTRUCTIONS, VANCO DOSE DUE AT 0800 WAS HELD.
[2017-04-30] MEDS: ASCORBIC ACID 500 MG TABLET PO SCH (08:21)
[2017-04-30] MEDS: PANTOPRAZOLE 40 MG VIAL IV SCH ×2 (08:21→21:17)
[2017-04-30] MEDS: LEVOTHYROXINE SODIUM 50 MCG TABLET GT SCH (08:21)
[2017-04-30] MEDS: MUPIROCIN OINT 2% 22 GM TUBE SCH ×2 (08:21→21:18)
[2017-04-30] MEDS: SUCRALFATE 1 G TABLET GT SCH ×4 (08:21→21:17)
[2017-04-30] MEDS: MULTIVITAMINS,THERAGRAN 1 UDTAB TABLET PO SCH (08:21)
[2017-04-30] MEDS: Z GUARD REMEDY 2 OZ OINT TP SCH (08:22)
[2017-04-30] MEDS: CADEXOMER IODINE 40 GM TUBE TP SCH (08:22)
[2017-04-30] MEDS: DAKINS QUARTER STRENGTH (0.125%) 480 ML BOTTLE TOP SCH (08:22)
[2017-04-30] MEDS: NEOMY SULF/BACITRAC ZN/POLY 15 GM TUBE TP SCH ×2 (08:22→17:02)
--- NOTE | 2017-04-30 12:00 | NUR ---
RN NOTES PTS 1200 ACCUCHECK WAS 128. PER ORDER, NO INSULIN GIVEN.
[2017-04-30] MEDS: SOD FERRIC GLUC 125 MG in IV NS 0.9% 100 ML IV SCH (13:50)
[2017-04-30 16:00] VITALS: BP 150/60
[2017-04-30] MEDS: FLUCONAZOLE (100 MG) 100 MG TABLET PO SCH (17:01)
--- NOTE | 2017-04-30 18:20 | NUR ---
RN NOTES PT IS SLEEPING IN BED, COMFORTABLY WITH HOB UP 45 DEGREES AND FAMILY AT BEDSIDE. PT ON 2L O2 VIA NASAL CANNULA, RESPIRATIONS ARE EVEN AND UNLABORED. MOOKIE PICC LINE INTACT AND PATENT, RUNNING NS TKO. 1800 ACCUCHECK WAS 107, NO INSULIN COVERAGE NEEDED. G-TUBE IS IN PLACE AND RUNNING FIBERSOURCE AT 70ML/HR. ALL MEDS WERE GIVEN ORDERED. PT WAS PROVIDED WITH WOUND CARE ORDERED. SAFETY MEASURES ARE IN PLACE, CALL LIGHT IS IN REACH. WILL ENDORSE TO BOTTOM CRANE OPERATOR RN FOR CONTINUITY OF CARE.
--- NOTE | 2017-04-30 19:30 | NUR ---
RN NOTES RECEIVED PATIENT IN BED ASLEEP, EASILY AROUSABE=LE, AO X 1, VERBALLY RESPONSIVE. NO ACUTE DISTRESS NOTED. NO SIGNS OF PAIN NOTED. MOOKIE PICC LINE PATENT, INTACT; FLUSHED. GT PATENT, INTACT; IN PLACE VIA AUSCULTATION. GTF FIBERSOURCE ONGOING AT 70 ML/HOUR ORDERED. HOB RAISED. ASPIRATION PRECAUTION MAINTAINED. CONTACT ISOLATION MAINTAINED FOR MRSA NARES. WILL REPOSITION Q 2 HOURS. BLE OFFLOADED. ON LOW BED WITH BILATERAL UPPER SIDE RAILS UP. CALL LIGHT WITHIN EASY REACH. WILL CONTINUE TO MONITOR.
[2017-04-30 20:00] VITALS: BP 146/70
[2017-04-30] MEDS ORDERED: VANCOMYCIN 0.75 GM in IV D5W 250 ML IV SCH (20:00)
[2017-04-30] MEDS: ATORVASTATIN 10 MG TABLET GT SCH (21:17)
[2017-05-01] VITALS (23 sets, daily range): BP systolic 112–143; BP diastolic 44–69
[2017-05-01] MEDS: PIPERACILLIN /TAZOBACTAM 3.375 G in IV D5W 50 ML IV SCH ×5 (00:23→23:40)
[2017-05-01] MEDS: BLOOD SUGAR DIAGNOSTIC 1 EACH STRIP IN SCH ×5 (00:25→23:50)
[2017-05-01] MEDS: INSULIN REGULAR, HUMAN 100 UNIT/ML 3 ML VIAL SQ PRN (00:26)
[2017-05-01 06:16] LABS: EOSINOPHILS % (AUTO) 0.2 % (0.0-6.0); HEMATOCRIT 28 % (39-51); HEMOGLOBIN 9.2 g/dL (13.5-17.5); LYMPHOCYTES # (AUTO) 0.6 /CMM (0.8-4.8); LYMPHOCYTES % (AUTO) 5.4 % (20.0-44.0); MEAN CORPUSCULAR HEMOGLOBIN 31 PG (26.0-33.0); MEAN CORPUSCULAR HGB CONC 33 g/dl (31.0-36.0); MEAN CORPUSCULAR VOLUME 96 fL (80-96); MONOCYTES # (AUTO) 0.6 /CMM (0.1-1.30); MONOCYTES % (AUTO) 5.1 % (2.0-12.0); NEUTROPHILS # (AUTO) 10.4 /CMM (1.8-8.9); NEUTROPHILS % (AUTO) 89.3 % (43.0-81.0); PLATELET COUNT (AUTO) 161 /CMM (150-450); RDW COEFFICIENT OF VARIATION 24.1 (11.5-15.0); RED BLOOD CELL COUNT(AUTO) 2.95 MIL/uL (4.5-6.0); WHITE BLOOD COUNT (AUTO) 11.7 K/uL (4.3-11.0)
[2017-05-01 06:37] LABS: CALCIUM, SERUM 8.2 mg/dL (8.5-10.1); CARBON DIOXIDE 28 mmol/L (21-32); CHLORIDE 113 mmol/L (98-107); GLUCOSE 94 mg/dL (74-106); MAGNESIUM 2.2 mg/dL (1.8-2.4); POTASSIUM 4.7 mmol/L (3.5-5.1); SODIUM SERUM 144 mmol/L (136-145); UREA NITROGEN, BLOOD 38 mg/dL (7-18)
[2017-05-01] MEDS: FIBERSOURCE HN 1,000 ML BOTTLE GT PRN (06:48)
--- NOTE | 2017-05-01 08:00 | NUR ---
m/s air quality specialist: notes noted with o2 sat at 57% on 2 liters, pt is mouth breathe. placed pt on 100% non-rebreather mask and satting at 71%-75%. pt remains obtunded, pt code status dnr/dni. will continue to monitor. Addendum: 05/01/17 at 0928 by KOLE ALEMAN CUB REPORTER received pt in bed with eyes close, appears obtunded. resp labored. on 2l/min via n/c. hob elevated. will continue to monitor.
--- NOTE | 2017-05-01 08:15 | NUR ---
m/s artist model: md visit dr. benites at bedside and informed md re: pt present condition with order for stat abg, chest x-ray, and i will order lasix for him as stated; also make breathing tx routine. orders read back and carried out and acknowledged. r.t. at bedside and deep suctioned performed. hob elevated. will continue to monitor.
--- NOTE | 2017-05-01 08:45 | NUR ---
m/s color drum worker: notes abg resulted. dr. benites notified and made aware with order to transfer pt to icu and place pt on bipap 06/03. cn aware. luciano (r.t) made aware. awaiting for bed in icu. pt remains obtunded and 100% non-rebreather mask at 15l/min. hob elevated. satting at 75%. will continue to monitor.
[2017-05-01 08:49] LABS: ABG BASE EXCESS -2.3 mmol/L; ABG OXYGEN SATURATION 76.5 % (92.0-98.5); ABG PCO2 79.8 mmHg (35.0-45.0); ABG PH 7.156 (7.350-7.450); ABG PO2 43.9 mmHg (75.0-100.0); AaDO2 442.7 mmHg; COHb 0.8 % (0.5-1.5); MetHb 0.8 % (0.0-1.5); O2Hb 75.3 % (94.0-97.0); SITE, ABG Right Radial; VENT MODE, BG NON-REBREATHER MASK
[2017-05-01] MEDS ORDERED: FUROSEMIDE 20 MG/2 ML VIAL IV ONE (09:00)
--- NOTE | 2017-05-01 09:00 | NUR ---
m/s employment instructional associate: notes dr. hawkins notified, left message to md's medical records secretary re: transfer to icu. north (daughter) notified and made aware re: transfer to icu with bipap.
--- NOTE | 2017-05-01 09:10 | NUR ---
m/s dry pan operator: notes report given to gregg (rn) for continuity of care.
--- NOTE | 2017-05-01 09:25 | NUR ---
m/s provider relations specialist: notes transferred pt to icu room 254 via bed with acls protocol.
--- NOTE | 2017-05-01 10:00 | NUR ---
RT NOTE: LATE ENTRY: AT APPROX. 0815 I WAS CALLED TO PATIENT'S ROOM TO FIND PATIENT IN DISTRESS WITH SP02=57% ON A NON-REBREATHER MASK AT 15LPM. B/S=COARSE RHONCHI. NT SUCTIONED TO OBTAIN COPIOUS AMOUNT OF THICK [place]OTT SECRETIONS. SP02 INCREASED 77%. ABG DONE AND REPORTED. PATIENT TRANSFERRED TO ICU AND PLACED ON BIPAP PER MD ORDER.
--- NOTE | 2017-05-01 11:00 | NUR ---
ICU/MEDICAL ADMINISTRATIVE SPECIALIST OF CARE REPORT GIVEN BY NURSE MILLER FOR PT ADMITTED TO ICU THIS MORNING FOR ACUTE RESPIRATORY FAILURE UNDER THE CARE OF DR. TOLEDO. PT RECEIVED ASLEEP, ON BIPAP WITH RATES: IPAP 20, EPAP 5, RATE 12 AND FIO2 100%, SATURATING 97%, LUNG SOUNDS RHONCHI, NOTED WITH PITTING EDEMA ON BILATERAL LOWER LEGS, IV SITE PATENT, SL. CONDOM CATHETER IN PLACE, NO NOTED URINE OUTPUT AT THIS TIME. SAFETY MAINTAINED. ON GOING MONITORING. Addendum: 05/01/17 at 1132 by LACEY JESSICA RN ADDENDUM: RECEIVED PT WITH G-TUBE FEEDING HELD D/T PT WAS PLACED ON BI-PAP, LYING SUPINE AT THIS TIME. 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
[2017-05-01 11:09] LABS: ABG BASE EXCESS -1.4 mmol/L; ABG OXYGEN SATURATION 95.2 % (92.0-98.5); ABG PCO2 55.2 mmHg (35.0-45.0); ABG PH 7.285 (7.350-7.450); ABG PO2 78.6 mmHg (75.0-100.0); AaDO2 579.2 mmHg; COHb 0.5 % (0.5-1.5); MetHb 0.9 % (0.0-1.5); O2Hb 93.9 % (94.0-97.0); PEEP,BG 5 cm H2O; SITE, ABG Right Radial
[2017-05-01] MEDS: SUCRALFATE 1 G TABLET GT SCH ×4 (11:23→21:13)
[2017-05-01] MEDS: PANTOPRAZOLE 40 MG VIAL IV SCH ×2 (11:50→21:13)
[2017-05-01] MEDS: LEVOTHYROXINE SODIUM 50 MCG TABLET GT SCH (11:51)
[2017-05-01] MEDS: ASCORBIC ACID 500 MG TABLET PO SCH (11:51)
[2017-05-01] MEDS: MULTIVITAMINS,THERAGRAN 1 UDTAB TABLET PO SCH (11:51)
[2017-05-01] MEDS ORDERED: IV NS 0.9% 250 ML BAG IV ONE (12:00)
--- NOTE | 2017-05-01 12:00 | NUR ---
ICU/RN BI-PAP RATE CHANGES IPAP 20, EPAP 8, RATE 12 AND FIO2 100%, NO ACUTE CHANGE OF CONDITION. KWONG CATHETER PLACED. MONITORING CONTINUED.
[2017-05-01] MEDS: IV NS 0.9% 250 ML IV PRN (12:06)
[2017-05-01] MEDS: MUPIROCIN OINT 2% 22 GM TUBE SCH ×2 (12:38→21:16)
[2017-05-01] MEDS: DAKINS QUARTER STRENGTH (0.125%) 480 ML BOTTLE TOP SCH (12:39)
[2017-05-01] MEDS: CADEXOMER IODINE 40 GM TUBE TP SCH (12:39)
[2017-05-01] MEDS: NEOMY SULF/BACITRAC ZN/POLY 15 GM TUBE TP SCH ×2 (12:39→16:53)
[2017-05-01] MEDS: Z GUARD REMEDY 2 OZ OINT TP SCH (12:40)
[2017-05-01] MEDS: ALBUTEROL FS 2.5 MG/3 ML VIAL.NEB NEB SCH ×2 (13:33→19:16)
[2017-05-01] MEDS: SOD FERRIC GLUC 125 MG in IV NS 0.9% 100 ML IV SCH (14:00)
[2017-05-01 14:58] LABS: INR 1.06 (0.87-1.13)
--- NOTE | 2017-05-01 15:45 | NUR ---
ICU/RN BI-PAP RATE CHANGES PT REPOSITIONED, BI-PAP RATES CHANGED: IPAP 20, EPAP 10, RATE 12 AND FIO2 80%, SATURATING WELL. NO ACUTE CHANGE OF CONDITION. ON GOING MONITORING CONTINUED.
--- NOTE | 2017-05-01 16:00 | NUR ---
ICU/RN THORACENTESIS - LEFT LUNG DR. HERRERA AND MOBILE ELECTRONICS INSTALLER AT BEDSIDE PERFORMED LEFT LUNG THORACENTESIS. REMOVED 1.5 LITERS OF FLUID. STAT CHEST X-RAY ORDERED TO RULE OUT PNEUMOTHORAX. MONITORING CONTINUED. Addendum: 05/01/17 at 1646 by LACEY JESSICA RN ADDENDUM: LEFT PLEURAL FLUID SPECIMEN SENT TO LAB
[2017-05-01] MEDS: FLUCONAZOLE (100 MG) 100 MG TABLET PO SCH (16:53)
--- NOTE | 2017-05-01 18:27 | NUR ---
ICU/RN AFTERNOON ROUNDS PM CARE PROVIDED, NO ACUTE CHANGE OF CONDITION. NOTED WITH GENERALIZED PITTING EDEMA, WEEPING ON BILATERAL FOREARM. PT VISITED BY AND DAUGHTER. MONITORING CONTINUED.
--- NOTE | 2017-05-01 19:19 | NUR ---
ICU/RN AM SHIFT END NOTES ALL NEEDS MET. NO ACUTE CHANGE OF CONDITION NOTED DURING THE SHIFT. PT ENDORSED TO PM NURSE TO CONTINUE CARE. CL WITHIN REACHED, SAFETY MAINTAINED AND ISOLATION OBSERVED.
--- NOTE | 2017-05-01 20:00 | NUR ---
EMERGENCY CREW SUPERVISOR: RECEIVED PT ON BIPAP MACHINE AND TOLERATING SETTINGS WELL ORDERED. NO ACUTE DISTRESS. OPENS EYES SPONTANEOUSLY, WT EPISODES OF TRYING TO REACH MASK, PT TEACHING DONE WT MINIMAL EFFECT. AFEBRILE. SR ON DRAWER IN WT 1ST DEGREE AV BLOCK AND INVERTED T WAVE. BP WNL. F/C PATENT AND INTACT DRAINING TEA COLORED URINE. HOB ELEVATED AT 35 DEGREES. GTF HELD AT THIS TIME. SAFETY AND ISOLATION PRECAUTION OBSERVED. WILL CONTINUE TO MONITOR.
[2017-05-01] MEDS: ATORVASTATIN 10 MG TABLET GT SCH (21:13)
[2017-05-01] MEDS: VORICONAZOLE 200 MG TABLET PO SCH (21:13)
--- NOTE | 2017-05-01 23:55 | NUR ---
FIREFIGHTER: VICTORIA ORELLANA LEAD C DEVELOPER FOR DR. TOLEDO WAS ON THE ICU UNIT AND MADE AWARE OF PT's BLOOD SUGAR RESULT TRENDING DOWN AT 67 FROM 78 AT 1800. WET CLEANER MACHINE SAID HE WILL PLACE ORDERS FOR D5NS AT 50ML/HR. NO S/S OF HYPOGLYCEMIA AT THIS TIME. WILL CONTINUE TO MONITOR.
[2017-05-02] VITALS (28 sets, daily range): BP systolic 104–150; BP diastolic 31–80
[2017-05-02] MEDS ORDERED: IV D5/ 0.9% NACL 1,000 ML IV PRN
[2017-05-02] MEDS: ALBUTEROL FS 2.5 MG/3 ML VIAL.NEB NEB SCH ×4 (01:22→20:00)
--- NOTE | 2017-05-02 03:30 | NUR ---
MECHANICAL DEVELOPMENT ENGINEER: PT NOTED WT SB ON CERTIFIED MASTER SAFE TECHNICIAN WT HR IN THE 30s. STIMULATED, SUCTIONED ORALLY AND NOTED WT SMALL AMT. OF THICK PINK-TINGED SECRETIONS. HR WENT BACK IN THE 50s-70s. REMAINED VERBALLY RESPONSIVE AND OPENED EYES SPONTANEOUSLY. BED BATH GIVEN AND TOLERATED FAIRLY. WILL CONTINUE TO MONITOR.
[2017-05-02 05:06] LABS: CALCIUM, SERUM 8.1 mg/dL (8.5-10.1); CARBON DIOXIDE 26 mmol/L (21-32); CHLORIDE 111 mmol/L (98-107); CREATININE 1.2 mg/dL (0.6-1.3); GLUCOSE 86 mg/dL (74-106); POTASSIUM 4.5 mmol/L (3.5-5.1); SODIUM SERUM 144 mmol/L (136-145); UREA NITROGEN, BLOOD 42 mg/dL (7-18)
[2017-05-02] MEDS: PIPERACILLIN /TAZOBACTAM 3.375 G in IV D5W 50 ML IV SCH ×3 (05:33→17:30)
[2017-05-02] MEDS: BLOOD SUGAR DIAGNOSTIC 1 EACH STRIP IN SCH ×3 (05:39→17:30)
--- NOTE | 2017-05-02 06:30 | NUR ---
SPIRITS MODEL: SB TO SR WT HR IN THE HIGH 50s TO 60s. TOLERATING BIPAP SETTINGS ORDERED WT 02 SAT ABOVE 96%. NOTED WT MODERATE AMT. OF SOFT BROWN STOOLS WELL PINK-TINGED URINE. GOOD MARCUS CARE RENDERED. SEEN AND EXAMINED BY DR. LIRA. AWAITING FOR FURTHER ORDERS.
--- NOTE | 2017-05-02 07:00 | NUR ---
ICU INITIAL NOTE RECEIVED PT IN BED, OPENS EYES, DOES NOT FOLLOW COMMANDS, MOVES UPPER EXTREMITIES, PT HAS GENERALIZED ANASARCA, BILATERAL ARMS WEEPING, MULTIPLE SKIN ISSUES, WOUND TREATMENTS ACK AND WILL BE CARRIED OUT, PT IS ON 10L SIMPLE MASK ,SATING WELL, NO S/S OF RESP. DISTRESS OR SOB NOTED AT THIS TIME, PT HAS UNLABORED AND EVEN BREATHING, PT IS ON BEDSIDE MONITOR SHOWING SR @76 BPM, NO S/S NO CHEST PAIN OR DISCOMFORT AT THIS TIME, PT HAS GTUBE, CLAMPED AT THIS TIME, PT HAS F/C DRAINING VERY MINIMAL PINK TINGED URINE TO GRAVITY, PT HAS MOOKIE PICC,C/D/I/PATENT, FLUSHING WELL, RUNNING D5NS@50 ML/HR, NO S/S OF INFECTION/ INFILTRATION NOTED AT THIS TIME, ISOLATION PRECAUTIONS OBSERVED AT ALL TIMES, ALL SAFETY MEASURES IN PLACE AT ALL TIMES, CALL LIGHT WITHIN EASY REACH, WILL MONITOR PT CLOSELY FOR CHANGES
--- NOTE | 2017-05-02 07:24 | NUR ---
ICU NOTE PT WAS NOTED WITH HR @ 30 BPM, PT WAS SLEEPING, WENT IN AND WOKE UP PT, PT HAS NO C/O OF CHEST PAIN OR SOB, HR WENT BACK UP TO 80'S, AWARE
[2017-05-02] MEDS ORDERED: BUMETANIDE INJ 8 MG in IV NS 0.9% 48 ML IV ONE (08:00)
[2017-05-02] MEDS: CADEXOMER IODINE 40 GM TUBE TP SCH (08:35)
[2017-05-02 08:36] LABS: HEMATOCRIT 25 % (39-51); LYMPHOCYTES # (AUTO) 0.5 /CMM (0.8-4.8); LYMPHOCYTES % (AUTO) 4.1 % (20.0-44.0); MEAN CORPUSCULAR HEMOGLOBIN 31 PG (26.0-33.0); MEAN CORPUSCULAR HGB CONC 32 g/dl (31.0-36.0); MEAN CORPUSCULAR VOLUME 96 fL (80-96); MONOCYTES # (AUTO) 0.4 /CMM (0.1-1.30); MONOCYTES % (AUTO) 3.7 % (2.0-12.0); NEUTROPHILS # (AUTO) 10.8 /CMM (1.8-8.9); NEUTROPHILS % (AUTO) 92.2 % (43.0-81.0); PLATELET COUNT (AUTO) 130 /CMM (150-450); RDW COEFFICIENT OF VARIATION 25.1 (11.5-15.0); RED BLOOD CELL COUNT(AUTO) 2.59 MIL/uL (4.5-6.0); WHITE BLOOD COUNT (AUTO) 11.7 K/uL (4.3-11.0)
[2017-05-02] MEDS: DAKINS QUARTER STRENGTH (0.125%) 480 ML BOTTLE TOP SCH (08:36)
[2017-05-02] MEDS: Z GUARD REMEDY 2 OZ OINT TP SCH (08:36)
[2017-05-02] MEDS: NEOMY SULF/BACITRAC ZN/POLY 15 GM TUBE TP SCH ×2 (08:36→17:30)
[2017-05-02] MEDS: ASCORBIC ACID 500 MG TABLET PO SCH (08:37)
[2017-05-02] MEDS: MUPIROCIN OINT 2% 22 GM TUBE SCH ×2 (08:37→21:49)
[2017-05-02] MEDS: PANTOPRAZOLE 40 MG VIAL IV SCH ×2 (08:37→21:47)
[2017-05-02] MEDS: LEVOTHYROXINE SODIUM 50 MCG TABLET GT SCH (08:37)
[2017-05-02] MEDS: FUROSEMIDE 20 MG/2 ML VIAL IV SCH (08:37)
[2017-05-02] MEDS: VORICONAZOLE 200 MG TABLET PO SCH ×2 (08:38→21:47)
[2017-05-02] MEDS: MULTIVITAMINS,THERAGRAN 1 UDTAB TABLET PO SCH (08:38)
[2017-05-02] MEDS: SUCRALFATE 1 G TABLET GT SCH ×2 (08:38→12:05)
--- NOTE | 2017-05-02 08:45 | NUR ---
ICU NOTE LUZ MARIA KESSLER STUDENT FOR BRYON SMITH MADE ROUNDS, AWARE OF ALL LABS AND RESULTS, ANSWERED ALL QUESTIONS AND CONCERNS, NO NEW ORDERS AT THIS TIME.
--- NOTE | 2017-05-02 09:56 | NUR ---
ICU NOTE DAUGHTER CALLED, UPDATED HER ON PT'S CONDITIONS, ANSWERED ALL QUESTIONS AND CONCERNS, WILL COME BY LATER
[2017-05-02] MEDS: IV NS 0.9% 250 ML IV PRN (12:23)
[2017-05-02] MEDS: SOD FERRIC GLUC 125 MG in IV NS 0.9% 100 ML IV SCH (13:49)
--- NOTE | 2017-05-02 15:00 | NUR ---
ICU NOTE URINE COLLECTED SENT TO LAB
[2017-05-02] MEDS: FIBERSOURCE HN 1,000 ML BOTTLE GT PRN (15:22)
[2017-05-02] MEDS ORDERED: METOCLOPRAMIDE HCL 10 MG/2 ML VIAL IV PRN (15:30)
--- NOTE | 2017-05-02 15:57 | NUR ---
ICU NOTE DR. TOBIN TAPING FOREMAN MADE ROUNDS GTUBE FEEDING WAS RESTARTED @ 30ML/HR, WILL CHECK FOR RESIDUALS AFTER 1 HR
[2017-05-02 16:47] LABS: BILIRUBIN,URINE NEGATIVE (NEGATIVE); BLOOD, URINE 3+ Ery/uL (NEGATIVE); COLOR,URINE YELLOW (YELLOW); KETONES,URINE NEGATIVE (NEGATIVE); LEUKOCYTE ESTERASE ,URINE NEGATIVE (NEGATIVE); NITRITE, URINE NEGATIVE (NEGATIVE); PROTEIN,URINE NEGATIVE (NEGATIVE); UGLUCOSE NEGATIVE (NEGATIVE); UROBILINOGEN,URINE 0.2 EU/dL (0.2)
[2017-05-02 16:50] LABS: APPEARANCE,URINE SLIGHTLY HAZY (CLEAR)
[2017-05-02 17:06] LABS: BACTERIA,URINE Few /HPF (None Seen); RBC,URINE 21-50 /HPF (0-2); SQUAMOUS EPITHELIAL CELL,UR Rare /HPF (None Seen); WBC,URINE NONE SEEN /HPF (0-3); YEAST,URINE Hyphal filaments /HPF (None Seen)
[2017-05-02] MEDS: SUCRALFATE 1 G/10 ML UDC GT SCH ×2 (17:30→21:46)
--- NOTE | 2017-05-02 17:49 | NUR ---
ICU NOTE CHECKED FEEDING, PT TOLERATING WELL, NO RESIDUALS AT THIS TIME
--- NOTE | 2017-05-02 19:30 | NUR ---
MECHANIC WELDER TRUCK DRIVER: RECEIVED PT ON 15L 02 VIA NRM WT 02 SAT 100%. OPENS EYES WHEN CALLED BY NAME AND TOUCHED, VERBALLY RESPONSIVE, ORIENTED X1-2 AND ABLE TO FOLLOW SIMPLE COMMANDS. SR ON ACCOUNT SOLUTIONS ANALYST WT HR IN THE 90s. AFEBRILE. TOLERATING GTF AT 30ML/HR AND WILL INCREASE RATE ALFONSO TILL REACH GOAL RATE. F/C PATENT AND INTACT DRAINING TEA COLORED/PINK-TINGED URINE TO GRAVITY. HOB ELEVATED AT 35%. MOOKIE PICC PATENT AND INTACT TKO WT NO S/S OF COMPLICATIONS. SAFETY AND ISOLATION PRECAUTION NOTED. WILL CONTINUE TO MONITOR.
[2017-05-02] MEDS: ACETAMINOPHEN 325 MG TABLET PO PRN (19:54)
--- NOTE | 2017-05-02 21:10 | NUR ---
HSE SPECIALIST: REASSESSED AFTER GIVEN TYLENOL FOR FACIAL GRIMACE WT GOOD EFFECT (0/10 VIA FLACC SCALE). WILL CONTINUE TO MONITOR.
--- NOTE | 2017-05-02 21:30 | NUR ---
WOOL GROWER: PLACED ON SIMPLE FACE MASK AT 10LPM 02 AND TOLERATING WELL AT 100% 02 SAT. NASO TRACHEAL SUCTIONING DONE AND TOLERATED FAIRLY WT SMALL AMT. OF THICK PINK-TINGED SECRETIONS.
[2017-05-03] VITALS (24 sets, daily range): BP systolic 104–142; BP diastolic 42–78
[2017-05-03] MEDS: PIPERACILLIN /TAZOBACTAM 3.375 G in IV D5W 50 ML IV SCH ×4 (00:21→17:11)
[2017-05-03] MEDS: BLOOD SUGAR DIAGNOSTIC 1 EACH STRIP IN SCH ×5 (00:26→23:27)
--- NOTE | 2017-05-03 00:30 | NUR ---
TOWN CLERK: BLOOD SUGAR RESULT BBP=832. ASLEEP, EASILY WAKES UP WHEN TOUCHED. SR WT HR IN THE 80s-90s. TOLERATING GTF WT NO RESIDUAL AND WILL INCREASE TOLERATED TILL REACH GOAL OF 70ML/HR.
[2017-05-03] MEDS: ALBUTEROL FS 2.5 MG/3 ML VIAL.NEB NEB SCH ×4 (01:00→19:48)
[2017-05-03 04:37] LABS: BASOPHILS % (AUTO) 0.1 % (0.0-2.0); EOSINOPHILS % (AUTO) 0.1 % (0.0-6.0); HEMATOCRIT 23 % (39-51); HEMOGLOBIN 7.6 g/dL (13.5-17.5); LYMPHOCYTES # (AUTO) 0.5 /CMM (0.8-4.8); LYMPHOCYTES % (AUTO) 3.7 % (20.0-44.0); MEAN CORPUSCULAR HEMOGLOBIN 32 PG (26.0-33.0); MEAN CORPUSCULAR HGB CONC 33 g/dl (31.0-36.0); MEAN CORPUSCULAR VOLUME 96 fL (80-96); MONOCYTES # (AUTO) 0.6 /CMM (0.1-1.30); MONOCYTES % (AUTO) 4.6 % (2.0-12.0); NEUTROPHILS # (AUTO) 11.5 /CMM (1.8-8.9); NEUTROPHILS % (AUTO) 91.5 % (43.0-81.0); PLATELET COUNT (AUTO) 135 /CMM (150-450); RDW COEFFICIENT OF VARIATION 26.1 (11.5-15.0); RED BLOOD CELL COUNT(AUTO) 2.42 MIL/uL (4.5-6.0); WHITE BLOOD COUNT (AUTO) 12.6 K/uL (4.3-11.0)
[2017-05-03 04:48] LABS: ALANINE AMINOTRANSFERASE 27 U/L (12-78); ALKALINE PHOSPHATASE 141 U/L (46-116); ASPARTATE AMINOTRANSFERASE 30 U/L (15-37); BILIRUBIN,TOTAL 0.3 mg/dL (0.2-1.0); CARBON DIOXIDE 28 mmol/L (21-32); CHLORIDE 111 mmol/L (98-107); CREATININE 1.3 mg/dL (0.6-1.3); GLUCOSE 138 mg/dL (74-106); POTASSIUM 3.6 mmol/L (3.5-5.1); SODIUM SERUM 146 mmol/L (136-145); TOTAL PROTEIN, SERUM 4.2 g/dL (6.4-8.2); UREA NITROGEN, BLOOD 46 mg/dL (7-18)
[2017-05-03 04:52] LABS: ALBUMIN 1.1 g/dL (3.4-5.0)
--- NOTE | 2017-05-03 04:55 | NUR ---
SENIOR ASP NET DEVELOPER: RECEIVED ALBUMIN=1.1. ALREADY HAD CRITICALLY LOW ALBUMIN SINCE ADMISSION. NO SIGNIFICANT SERGIO. VS WITHIN HIS BASELINE. WILL ENDORSE TO DAY SHIFT TO FF-UP WT MD. ED CHARGE NURSE MADE AWARE AND AGREED.
[2017-05-03] MEDS: INSULIN REGULAR, HUMAN 100 UNIT/ML 3 ML VIAL SQ PRN (05:50)
--- NOTE | 2017-05-03 06:15 | NUR ---
GOLD BURNISHER: PLACED ON 3L 02 VIA NC SINCE 0600 AND TOLERATING WELL WT 02 SAT 98%. REMAINED VERBALLY RESPONSIVE, FOLLOWING SIMPLE COMMANDS. NO ACUTE DISTRESS, NO EVIDENCE OF DISCOMFORT. VS WITHIN HIS BASELINE. UNABLE TO OBTAIN WEIGHT AT THIS TIME D/T BED SCALE MALFUNCTION. HOB AT 35 DEGREES AND TOLERATING GTF WT MAX. GOAL RATE OF 70ML/HR. SAFETY AND ISOLATION PRECAUTION NOTED AT ALL TIMES.
--- NOTE | 2017-05-03 07:15 | NUR ---
CHILD CARE LEAD TEACHER NOTES RECEIVED PATIENT AOX1-2 , FOLLOWS COMMANDS , NOT IN ACUTE DISTRESS , RESPIRATIONS EVEN AND UNLABORED , SPO2 OF 98% VIA 3LPM NC , SR 85 ON BEDSIDE MONITOR , GT PATENT AND INTACT WITH FIBERSOURCE @ 70ML/HR TOLERATING WELL WITH NO RESIDUALS , FC DRAINING VIA GRAVITY WITH CLEAR YELLOW URINE , MOOKIE PICC LINE PATENT AND INTACT WITH NS @ TKO , ALL NEEDS ATTENDED , BED ON LOW AND LOCKED POSITION , SIDE RAILS X2 ,CALL LIGHT WITHIN REACH , HOB @ 35 , WILL CONTINUE TO MONITOR .
[2017-05-03] MEDS: DAKINS QUARTER STRENGTH (0.125%) 480 ML BOTTLE TOP SCH (08:31)
[2017-05-03] MEDS: SUCRALFATE 1 G/10 ML UDC GT SCH ×4 (08:32→21:18)
[2017-05-03] MEDS: MULTIVITAMINS,THERAGRAN 1 UDTAB TABLET PO SCH (08:32)
[2017-05-03] MEDS: PANTOPRAZOLE 40 MG VIAL IV SCH ×2 (08:32→21:18)
[2017-05-03] MEDS: VORICONAZOLE 200 MG TABLET PO SCH ×2 (08:32→21:18)
[2017-05-03] MEDS: LEVOTHYROXINE SODIUM 50 MCG TABLET GT SCH (08:32)
[2017-05-03] MEDS: CADEXOMER IODINE 40 GM TUBE TP SCH (08:32)
[2017-05-03] MEDS: MUPIROCIN OINT 2% 22 GM TUBE SCH ×2 (08:32→21:19)
[2017-05-03] MEDS: ASCORBIC ACID 500 MG TABLET PO SCH (08:32)
[2017-05-03] MEDS: FUROSEMIDE 20 MG/2 ML VIAL IV SCH (08:33)
[2017-05-03] MEDS: Z GUARD REMEDY 2 OZ OINT TP SCH (08:33)
[2017-05-03] MEDS: NEOMY SULF/BACITRAC ZN/POLY 15 GM TUBE TP SCH ×2 (08:33→16:49)
--- NOTE | 2017-05-03 08:50 | NUR ---
VP ORGANIZATIONAL DEVELOPMENT NOTES RT AT BEDSIDE , DEEP SUCTIONED PT NOTED WITH THICK BLOODY SECRETIONS , TOLERATED WELL , WILL CONTINUE TO MONITOR
--- NOTE | 2017-05-03 09:12 | NUR ---
GAS STATION SERVICE ATTENDANT NOTES SEEN AND EVALUATED BY DR EUGENE , DISCUSSED PT HISTORY AND CHIEF COMPLAINS UPON ADMISSION , LABS , PENDING R THORACENTESIS , AFEBRILE , V/S STABLE , DEEP SUCTIONED PT NOTED WITH BLOODY THICK SECRETIONS , OFF BIPAP , CURRENTLY ON 3LPM NC SPO2 OF 100% , AOX1-2 CONFUSED , DEMENTED , TOLERATING GT FEEDING , MD AWARE
--- NOTE | 2017-05-03 09:15 | NUR ---
DIRECTOR OF QUALITY CONTROL NOTES DISCUSSED WITH DR EUGENE THAT SOME HOME MEDICATIONS ARE HELD , FOLLOWED UP TO REVIEW MEDICATION RECONCILIATION , AWARE
--- NOTE | 2017-05-03 10:15 | NUR ---
HEATING UNIT INSTALLER NOTES SEEN AND EVALUATED BY DR HYLTON , DISCUSSED LABS , CHEST XRAY RESULT , CURRENTLY OFF BIPAP , ON 3LPM NC SINCE 0600 AM SPO2 OF 98% TOLERATING WELL WITH NO SIGNS OF DISTRESS , DEEP SUCTIONED PT NOTED WITH THICK BLOODY SECRETIONS MODERATE IN AMOUNT , AFEBRILE , V/S STABLE , TLERATING GT FEEDING WITH NO RESIDUALS NOTED , PT ON LASIX 20MG DAILY , MORE AWAKE FOLLOWS COMMANDS, MD AWARE .
[2017-05-03] MEDS: FIBERSOURCE HN 1,000 ML BOTTLE GT PRN (11:20)
--- NOTE | 2017-05-03 15:31 | NUR ---
FISHING GAME WARDEN NOTES CALLED BELLO LUCIANO DAUGHTER , DISCUSSED THAT CDL INSTRUCTOR ORDERED TO DO ULTRASOUND GUIDED THORACENTESIS FOR TOMORROW , EXPLAINED THE RISK AND BENEFITS OF THE PROCEDURE , DAUGHTER AGREES AND CONSENTED TO PROCEED WITH THE PROCEDURE , WITNESSED BY OBED CHURCH FOR TELEPHONE CONSENT.
[2017-05-03] MEDS: IV NS 0.9% 250 ML IV PRN (17:14)
--- NOTE | 2017-05-03 19:05 | NUR ---
YOUTH MANAGER NOTES PATIENT STABLE AT THIS TIME , NOT IN ACUTE DISTRESS , RESPIRATIONS EVEN AND UNLABORED , SPO2 OF 100% VIA 3LPM NC , SR 91 ON BEDSIDE MONITOR , GT PATENT AND INTACT WITH FIBERSOURCE @ 70ML/HR TOLERATING WELL , FC DRAINING VIA GRAVITY WITH CLEAR YELLOW URINE , MOOKIE PICC LINE PATENT AND INTACT WITH NS @ TKO , ALL NEEDS ATTENDED , BED ON LOW AND LOCKED POSITION , SIDE RAILS X2 ,CALL LIGHT WITHIN REACH , HOB @ 35 , REPORT GIVEN TO SHAI CHURCH FOR CONTINUITY OF CARE.
--- NOTE | 2017-05-03 20:24 | NUR ---
received pt from day shift, alert, follows commands at times, drowsy, Afib, SR, ST, 1 degree AV block, on 3 L 02 sat well, lungs congested, pitting edema all extremities, GT to feeding, tolerates well, f/c good output, multiple wounds, v/s stable, no pain, pt turned and repositioned.
[2017-05-04] VITALS (30 sets, daily range): BP systolic 96–131; BP diastolic 31–79
--- NOTE | 2017-05-04 00:17 | NUR ---
pt is resting in the bed, v/s stable, no pain, tolerates feeding, pt turned and repositioned q2hrs.
[2017-05-04] MEDS: FIBERSOURCE HN 1,000 ML BOTTLE GT PRN (01:32)
[2017-05-04] MEDS: ALBUTEROL FS 2.5 MG/3 ML VIAL.NEB NEB SCH ×4 (01:42→19:18)
--- NOTE | 2017-05-04 04:16 | NUR ---
pt is resting in the bed, no acute distress overnight, Afib, v/s stable, tolerates feeding, OK urine output, v/s stable, no pain, pt cleaned, changed and repositioned q2hrs.
[2017-05-04 04:43] LABS: BASOPHILS % (AUTO) 0.1 % (0.0-2.0); EOSINOPHILS % (AUTO) 0.1 % (0.0-6.0); HEMATOCRIT 22 % (39-51); HEMOGLOBIN 7.1 g/dL (13.5-17.5); LYMPHOCYTES # (AUTO) 0.4 /CMM (0.8-4.8); LYMPHOCYTES % (AUTO) 3.9 % (20.0-44.0); MEAN CORPUSCULAR HEMOGLOBIN 31 PG (26.0-33.0); MEAN CORPUSCULAR HGB CONC 33 g/dl (31.0-36.0); MEAN CORPUSCULAR VOLUME 96 fL (80-96); MONOCYTES # (AUTO) 0.5 /CMM (0.1-1.30); MONOCYTES % (AUTO) 4.7 % (2.0-12.0); NEUTROPHILS # (AUTO) 9.4 /CMM (1.8-8.9); NEUTROPHILS % (AUTO) 91.2 % (43.0-81.0); PLATELET COUNT (AUTO) 111 /CMM (150-450); RDW COEFFICIENT OF VARIATION 25.7 (11.5-15.0); RED BLOOD CELL COUNT(AUTO) 2.27 MIL/uL (4.5-6.0); WHITE BLOOD COUNT (AUTO) 10.3 K/uL (4.3-11.0)
[2017-05-04 04:44] LABS: CALCIUM, SERUM 8.2 mg/dL (8.5-10.1); CARBON DIOXIDE 30 mmol/L (21-32); CHLORIDE 112 mmol/L (98-107); CREATININE 1.4 mg/dL (0.6-1.3); GLUCOSE 130 mg/dL (74-106); PHOSPHORUS 2.3 mg/dL (2.5-4.9); SODIUM SERUM 148 mmol/L (136-145); UREA NITROGEN, BLOOD 50 mg/dL (7-18)
[2017-05-04 04:58] LABS: INR 1.15 (0.87-1.13)
[2017-05-04] MEDS: BLOOD SUGAR DIAGNOSTIC 1 EACH STRIP IN SCH ×4 (05:18→23:17)
[2017-05-04 05:47] LABS: BAND % (MANUAL) 1 % (0.0-5.0); EOSINOPHILS % (MANUAL) 1 % (0-4); LYMPHOCYTES % (MANUAL) 6 % (16-48); NEUTROPHILS % (MANUAL) 92 (42-76)
--- NOTE | 2017-05-04 07:30 | NUR ---
ICU/RN: Pt received n O2 3L/min via NC. Breathing even and unlabored. Pt responds to name and touch, confused, states "I feel better today." HOB elevated per aspiration precautions. Tolerating TF, no residual noted. FC draining well to gravity. SR on monitor. Will cont to monitor pt status.
[2017-05-04] MEDS: VORICONAZOLE 200 MG TABLET PO SCH ×2 (08:14→21:36)
[2017-05-04] MEDS: FUROSEMIDE 20 MG/2 ML VIAL IV SCH (08:14)
[2017-05-04] MEDS: LEVOTHYROXINE SODIUM 50 MCG TABLET GT SCH (08:14)
[2017-05-04] MEDS: SUCRALFATE 1 G/10 ML UDC GT SCH ×4 (08:14→21:36)
[2017-05-04] MEDS: ASCORBIC ACID 500 MG TABLET PO SCH (08:14)
[2017-05-04] MEDS: Z GUARD REMEDY 2 OZ OINT TP SCH (08:15)
[2017-05-04] MEDS: MULTIVITAMINS,THERAGRAN 1 UDTAB TABLET PO SCH (08:15)
[2017-05-04] MEDS: PANTOPRAZOLE 40 MG VIAL IV SCH ×2 (08:15→21:36)
[2017-05-04] MEDS: DAKINS QUARTER STRENGTH (0.125%) 480 ML BOTTLE TOP SCH (08:18)
[2017-05-04] MEDS: CADEXOMER IODINE 40 GM TUBE TP SCH (08:19)
[2017-05-04] MEDS: MUPIROCIN OINT 2% 22 GM TUBE SCH ×2 (08:19→21:37)
[2017-05-04] MEDS: NEOMY SULF/BACITRAC ZN/POLY 15 GM TUBE TP SCH ×2 (08:19→16:10)
--- NOTE | 2017-05-04 08:30 | NUR ---
ICU/RN: Dr Li at bedside, updated on pt status, abn labs, pending thoracentesis for today. Per MD, keep pt in ICU for now.
--- NOTE | 2017-05-04 09:00 | NUR ---
ICU/RN: Due meds administered, tolerated well. Dr Yuliana segura, updated on pt status. New orders noted and carried out.
[2017-05-04] MEDS: POTASSIUM CL. PREMIX PERIPHER. 50 ML IV SCH ×2 (09:21→10:18)
[2017-05-04] MEDS ORDERED: POTASSIUM CL. PREMIX PERIPHER. 50 ML IV SCH (11:26)
[2017-05-04] MEDS ORDERED: NEUTRA PHOS 1 POWD.PACKET NG ONE (12:30)
[2017-05-04] MEDS: POTASSIUM CHLORIDE 20 MEQ POWDER PACKET GT SCH ×3 (12:56→16:57)
[2017-05-04] MEDS ORDERED: LORATADINE 10 MG TABLET PO ONE (13:00)
[2017-05-04] MEDS ORDERED: ACETAMINOPHEN 325 MG TABLET PO ONE (13:00)
--- NOTE | 2017-05-04 13:00 | NUR ---
ICU/RN: L lung thoracentesis complete, 1400 cc out, pt tolerated well. Stat CXR ordered. Placed in supine position, post-op vitals per routine initiated. Will cont to monitor.
[2017-05-04 14:59] LABS: ABG BASE EXCESS 3.1 mmol/L; ABG OXYGEN SATURATION 93.7 % (92.0-98.5); ABG PCO2 31.6 mmHg (35.0-45.0); ABG PH 7.529 (7.350-7.450); AaDO2 128.2 mmHg; COHb 1.1 % (0.5-1.5); MetHb 0.4 % (0.0-1.5); O2Hb 92.3 % (94.0-97.0); SITE, ABG Right Radial; VENT MODE, BG 3L NC
--- NOTE | 2017-05-04 15:00 | NUR ---
ICU/RN: Bed bath, oral and wound care rendered. Pt tolerated well. Dressing s/p thoracentesis C/D/I. Pt with periods of aggressiveness during hygienic care. Re-oriented.
--- NOTE | 2017-05-04 17:20 | NUR ---
ICU/RN: Pt's daughter Naz at the bedside. Updated on pt status. Agreeable with POC. Informed of transfer to [address] [place] [address]. Daughter took home heel protectors.
--- NOTE | 2017-05-04 17:45 | NUR ---
ICU/RN: Pt transferred to [facility] in stable condition via ACLS protocol. Medications and chart transferred with pt. No adverse reactions to blood transfusion noted. Received at bedside by primary RN Katelyn.
--- NOTE | 2017-05-04 17:55 | NUR ---
POSTIE NOTES RECEIVED PATIENT FROM ICU DEPT VIA BED, PATIENT A/OX1, BLOOD TRANSFUSION ONGOING, NO ADVERSE REACTION NOTED, MOOKIE PICC LINE PATENT AND INTACT, TELE MONITOR ATTACHED, SHOWS SINUS RHYTHM 81, GTF ONGOING AND TOLERATING WELL, PLACEMENT VERIFIED, NO RESIDUAL NOTED, HOB ELEVATED AT ALL TIMES, VITAL SIGNS OBTAINED, NO S/SX OF DISTRESS NOTED, ON O2 AT 3LPM VIA NC WITH SPO2 99%, NEEDS ATTENDED AND MET, KEPT SKIN CLEAN AND DRY, PATIENT APPEARS TO BE COMFORTABLE, SAFETY MEASURES IN PLACED, CALL LIGHT WITHIN REACH, WILL CONTINUE TO MONITOR.
--- NOTE | 2017-05-04 18:33 | NUR ---
IRON CARRIER NOTES BLOOD TRANSFUSION ONGOING AND TOLERATING WELL, ADL CARE PROVIDED, SKIN KEPT CLEAN AND DRY, NO ADVERSE REACTION NOTED, PATIENT IS IN NO DISTRESS, NEEDS ATTENDED AND MET, SAFETY MEASURES IN PLACED, CALL LIGHT WITHIN REACH, WILL ENDORSE TO [facility] FOR SERGIO.
--- NOTE | 2017-05-04 19:20 | NUR ---
RECEIVED PT IN BED RESTING COMFORTABLY. BREATHING EVENLY. NO SOB. NAD. ON ONGOING BLOOD TRANSFUSION. ALFONSO WELL . NO COMPLICATIONS NOTED. VS STABLE. NO S/S OF PAIN OR DISCOMFORT/ GT IN PLACE . GTF ALFONSO WELL. HOB ELEVATED. F/C IN PLACE DRAINING CLEAR YELLOW URINE. PT WAS SEEN BY DR. TOBIN AT THE BED SIDE. BED LOW LOCKED. CALL LIGHT WITHIN REACH. WILL CONT TO MONITOR ,.
--- NOTE | 2017-05-04 19:40 | NUR ---
PT COMPLETED BLOOD TRANSFUSION W/ NO COMPLICATIONS. ANOTHR SET OF VITAL SIGNS OBTAINED AND DOCUMENTED. ALL WNL. WILL CONT TO MONITOR ,
[2017-05-04] MEDS: TAMSULOSIN 0.4 MG CAP.SR.24H PO SCH (21:37)
[2017-05-05] VITALS (8 sets, daily range): BP systolic 112–158; BP diastolic 47–89
[2017-05-05] MEDS: FIBERSOURCE HN 1,000 ML BOTTLE GT PRN ×2 (00:46→18:05)
[2017-05-05] MEDS: ALBUTEROL FS 2.5 MG/3 ML VIAL.NEB NEB SCH ×4 (01:25→19:33)
[2017-05-05] MEDS: BLOOD SUGAR DIAGNOSTIC 1 EACH STRIP IN SCH ×4 (06:19→23:19)
--- NOTE | 2017-05-05 07:49 | NUR ---
RN NOTE; PT IN BED . BREATHING EVENLY. NO S/S OF PAIN OR DISCOMFORT. GTF ALFONSO WELL . F/C IN PLACE DRAINING CLEAR YELLOW URINE. CONSENT WAS OBTAINED FROM TILA THE DTR OVER THE PHONE FOR DEBRIDEMENT OF THE SACRAL WOUND. PT REMAINED CLEAN AND DRIED. REPOSITIONED. TELE MONITOR IN PLACE READING A.FIB. REPORT GIVEN TO VERNON FOR SERGIO.
[2017-05-05 07:53] LABS: EOSINOPHILS % (AUTO) 0.4 % (0.0-6.0); HEMATOCRIT 27 % (39-51); HEMOGLOBIN 8.6 g/dL (13.5-17.5); LYMPHOCYTES # (AUTO) 0.5 /CMM (0.8-4.8); LYMPHOCYTES % (AUTO) 5.5 % (20.0-44.0); MEAN CORPUSCULAR HEMOGLOBIN 31 PG (26.0-33.0); MEAN CORPUSCULAR HGB CONC 32 g/dl (31.0-36.0); MEAN CORPUSCULAR VOLUME 97 fL (80-96); MONOCYTES # (AUTO) 0.5 /CMM (0.1-1.30); NEUTROPHILS # (AUTO) 8.5 /CMM (1.8-8.9); NEUTROPHILS % (AUTO) 89.1 % (43.0-81.0); PLATELET COUNT (AUTO) 99 /CMM (150-450); RDW COEFFICIENT OF VARIATION 23.8 (11.5-15.0); RED BLOOD CELL COUNT(AUTO) 2.74 MIL/uL (4.5-6.0); WHITE BLOOD COUNT (AUTO) 9.5 K/uL (4.3-11.0)
--- NOTE | 2017-05-05 07:55 | NUR ---
INTERVENTIONAL RADIOLOGY TECH NOTE RECEIVED SBAR REPORT AT THE BEDSIDE. PATIENT IS A/O X1, ASLEEP. NO S/S OF PAIN/DISCOMFORT AT THIS TIME. PATIENT IS IN BED, BED IS LOCKED IN THE LOWEST POSITION, SIDE RAILS UP X3. CALL LIGHT WITHIN REACH. PATIENT EDUCATED TO USE THE CALL LIGHT TO CALL FOR ASSISTANCE. WILL CONTINUE TO MONITOR/ REASSESS THROUGHOUT THE SHIFT.
[2017-05-05 08:30] LABS: CALCIUM, SERUM 7.9 mg/dL (8.5-10.1); CARBON DIOXIDE 29 mmol/L (21-32); CHLORIDE 113 mmol/L (98-107); CREATININE 1.3 mg/dL (0.6-1.3); GLUCOSE 130 mg/dL (74-106); PHOSPHORUS 2.3 mg/dL (2.5-4.9); POTASSIUM 3.8 mmol/L (3.5-5.1); SODIUM SERUM 148 mmol/L (136-145); UREA NITROGEN, BLOOD 53 mg/dL (7-18)
[2017-05-05] MEDS: FUROSEMIDE 20 MG/2 ML VIAL IV SCH (09:58)
[2017-05-05] MEDS: SUCRALFATE 1 G/10 ML UDC GT SCH ×4 (09:59→21:13)
[2017-05-05] MEDS: ASCORBIC ACID 500 MG TABLET PO SCH (09:59)
[2017-05-05] MEDS: ZINC SULFATE 220 MG CAPSULE PO SCH (09:59)
[2017-05-05] MEDS: LEVOTHYROXINE SODIUM 50 MCG TABLET GT SCH (09:59)
[2017-05-05] MEDS: VORICONAZOLE 200 MG TABLET PO SCH ×2 (09:59→21:13)
[2017-05-05] MEDS: MULTIVITAMINS,THERAGRAN 1 UDTAB TABLET PO SCH (10:03)
[2017-05-05] MEDS: PANTOPRAZOLE 40 MG VIAL IV SCH ×2 (10:03→21:13)
[2017-05-05] MEDS: PROSOURCE / PROSTAT (PYXIS) 30 ML UDC GT SCH (10:04)
[2017-05-05] MEDS: MUPIROCIN OINT 2% 22 GM TUBE SCH ×2 (10:43→21:14)
[2017-05-05] MEDS: CADEXOMER IODINE 40 GM TUBE TP SCH (10:43)
[2017-05-05] MEDS: NEOMY SULF/BACITRAC ZN/POLY 15 GM TUBE TP SCH ×2 (10:43→17:45)
[2017-05-05] MEDS: DAKINS QUARTER STRENGTH (0.125%) 480 ML BOTTLE TOP SCH (10:44)
[2017-05-05] MEDS: Z GUARD REMEDY 2 OZ OINT TP SCH (10:45)
[2017-05-05 10:53] LABS: EOSINOPHILS % (MANUAL) 1 % (0-4); LYMPHOCYTES % (MANUAL) 3 % (16-48); MONOCYTES % (MANUAL) 5 % (0-11.0); NEUTROPHILS % (MANUAL) 91 (42-76)
--- NOTE | 2017-05-05 12:58 | NUR ---
SUBEDITOR NOTE BLOOD GLUCOSE 71MG/DL. NO ACTIVON NEEDED AT THIS TIME
[2017-05-05] MEDS ORDERED: NEUTRA PHOS 1 POWD.PACKET NG ONE (13:30)
--- NOTE | 2017-05-05 18:53 | NUR ---
MS RN NOTE THE GLUCOMETER DID NOT AUTOMATICALLY RECORD PATIENT'S BG LEVEL INTO THE CHART. PATIENT'S BLOOD GLUCOSE 101MG/DL. NO ACTION TAKEN.
--- NOTE | 2017-05-05 18:54 | NUR ---
HAND GRINDER CLOSING NOTE PATIENT IS A/O X1, ASLEEP. NO S/S OF PAIN/DISCOMFORT AT THIS TIME. PATIENT IS IN BED, BED IS LOCKED IN THE LOWEST POSITION, SIDE RAILS UP X3. CALL LIGHT WITHIN REACH. PLAN OF CARE FOR TOMORROW DISCUSSED WITH THE DAUGHTER TILA OVER THE PHONE. FAMILY CONTINUALLY UPDATED ON PATIENT'S STATUS THROUGHOUT THE SHIFT. PATIENT REPOSITIONED EVERY 2 HRS. WOUND CARE PROVIDED PRESCRIBED. HOB KEPF ELEVATED AT ALL TIMES. PATIENT WAS ROUNDED ON HOURLY. WILL ENDORSE TO THE DESKTOP SUPPORT MANAGER NURSE FOR SERGIO. Addendum: 05/05/17 at 1901 by VERNON FERREIRA RN [place] RN CLOSING [id number] PATIENT HAS BE TRANSFERRED TO [place] FROM [facility] AT [id number].
--- NOTE | 2017-05-05 19:00 | NUR ---
MS RN OPENING NOTES PT IN BED RESTING, PT A/O X 1, NO S/S OF DISTRESS NOTED. BREATHING EVEN AND UNLABORED, SAFETY MEASURES IN PLACE, BED LOCKED AND IN LOWEST POSITION, CALL LIGHT IN REACH. WILL CONTINUE TO MONITOR.
[2017-05-05] MEDS: TAMSULOSIN 0.4 MG CAP.SR.24H PO SCH (21:13)
[2017-05-05] MEDS: INSULIN REGULAR, HUMAN 100 UNIT/ML 3 ML VIAL SQ PRN (23:19)
[2017-05-06] MEDS: ALBUTEROL FS 2.5 MG/3 ML VIAL.NEB NEB SCH ×4 (01:41→20:00)
[2017-05-06] MEDS: BLOOD SUGAR DIAGNOSTIC 1 EACH STRIP IN SCH ×3 (05:29→17:24)
[2017-05-06] MEDS: INSULIN REGULAR, HUMAN 100 UNIT/ML 3 ML VIAL SQ PRN (05:29)
--- NOTE | 2017-05-06 06:34 | NUR ---
MS RN CLOSING NOTES ASLEEP AND EASILY AWAKEN. HEAD OF BED ELEVATED FOR BETTER LUNG EXPANSION, ON 2LPM VIA NC 02 SAT AT 94% RESPIRATIONS EVEN AND UNLABORED. BREATHING TX TOLERATED WELL. GT INFUSING ORDERED AND TOLERATED WELL. IN STABLE CONDITION NO S/S OF ACUTE DISTRESS, AFEBRILE, NURSING CARE RENDERED, NEEDS ATTENDED AND ANTICIPATED, KEPT CLEAN AND DRY AND COMFORTABLE. TX ORDERED.GOOD SKIN CARE PROVIDED. REPOSITION Q2H. FREQUENT VISUAL CHECK DONE FOR SAFETY EVERY 2 HOURS. F/C CARE PROVIDED. DRAINING YELLOW VIA GRAVITY WITH NO SEDIMENTS NO HEMATURIA NO CLOUDINESS. SAFE HAZARD FREE ENVIRONMENT PROVIDED. CALL LIGHT WITHIN EASY TO REACH, ON LOW BED AT ALL TIMES TO ENSURE SAFETY, WILL ENDORSE TO THE NEXT SHIFT CONTINUE PLAN OF CARE.
--- NOTE | 2017-05-06 07:20 | NUR ---
MS RN INITIAL NOTES RECEIVED PT IN BED ASLEEP, ON O2 VIA NC AT 2L/MIN.RESPIRATIONS EVEN, UNLABORED, NO SOB NOTED O2SAT 95%.IV SITE MOOKIE PICC LINE INTACT, PATENT, NO S/SX OF INFILTRATION NOTED. ON GT FEEDING FIBERSOURSE AT 70ML/HR, TOLERATES WELL,HOB ELEVATED. F/C PATENT DRAINING YELLOW COLOR URINE. NO S/SX OF PAIN OR DISCOMFORT NOTED. BED LOCKED AND IN LOWEST POSITION. SAFETY MEASURES IN PLACE.ATTENDED ALL NEEDS.
[2017-05-06 07:22] LABS: HEMATOCRIT 26 % (39-51); HEMOGLOBIN 8.3 g/dL (13.5-17.5); LYMPHOCYTES # (AUTO) 0.6 /CMM (0.8-4.8); LYMPHOCYTES % (AUTO) 7.8 % (20.0-44.0); MEAN CORPUSCULAR HEMOGLOBIN 32 PG (26.0-33.0); MEAN CORPUSCULAR HGB CONC 33 g/dl (31.0-36.0); MEAN CORPUSCULAR VOLUME 98 fL (80-96); MONOCYTES # (AUTO) 0.4 /CMM (0.1-1.30); MONOCYTES % (AUTO) 5.9 % (2.0-12.0); NEUTROPHILS # (AUTO) 6.3 /CMM (1.8-8.9); NEUTROPHILS % (AUTO) 86.3 % (43.0-81.0); PLATELET COUNT (AUTO) 90 /CMM (150-450); RDW COEFFICIENT OF VARIATION 24.6 (11.5-15.0); RED BLOOD CELL COUNT(AUTO) 2.63 MIL/uL (4.5-6.0); WHITE BLOOD COUNT (AUTO) 7.3 K/uL (4.3-11.0)
[2017-05-06 07:50] LABS: CALCIUM, SERUM 7.9 mg/dL (8.5-10.1); CARBON DIOXIDE 33 mmol/L (21-32); CHLORIDE 113 mmol/L (98-107); CREATININE 1.3 mg/dL (0.6-1.3); GLUCOSE 126 mg/dL (74-106); SODIUM SERUM 150 mmol/L (136-145); UREA NITROGEN, BLOOD 57 mg/dL (7-18)
[2017-05-06 08:00] VITALS: BP 139/66
[2017-05-06] MEDS: ASCORBIC ACID 500 MG TABLET PO SCH (08:40)
[2017-05-06] MEDS: PANTOPRAZOLE 40 MG VIAL IV SCH ×2 (08:40→21:27)
[2017-05-06] MEDS: FUROSEMIDE 20 MG/2 ML VIAL IV SCH (08:40)
[2017-05-06] MEDS: MULTIVITAMINS,THERAGRAN 1 UDTAB TABLET PO SCH (08:41)
[2017-05-06] MEDS: ZINC SULFATE 220 MG CAPSULE PO SCH (08:41)
[2017-05-06] MEDS: SUCRALFATE 1 G/10 ML UDC GT SCH ×4 (08:41→22:28)
[2017-05-06] MEDS: VORICONAZOLE 200 MG TABLET PO SCH ×2 (08:41→21:08)
[2017-05-06] MEDS: LEVOTHYROXINE SODIUM 50 MCG TABLET GT SCH (08:41)
[2017-05-06] MEDS: PROSOURCE / PROSTAT (PYXIS) 30 ML UDC GT SCH (08:42)
--- NOTE | 2017-05-06 09:35 | NUR ---
MS RN NOTES RENAN HUNTLEY AT BEDSIDE FOR WOUND DEBRIDEMENT.
[2017-05-06] MEDS: MUPIROCIN OINT 2% 22 GM TUBE SCH ×2 (09:50→21:07)
[2017-05-06] MEDS: CADEXOMER IODINE 40 GM TUBE TP SCH (09:51)
[2017-05-06] MEDS: Z GUARD REMEDY 2 OZ OINT TP SCH (09:51)
[2017-05-06] MEDS: DAKINS QUARTER STRENGTH (0.125%) 480 ML BOTTLE TOP SCH ×2 (09:52→21:11)
[2017-05-06] MEDS: NEOMY SULF/BACITRAC ZN/POLY 15 GM TUBE TP SCH ×2 (10:32→16:54)
[2017-05-06 11:01] LABS: BAND % (MANUAL) 4 % (0.0-5.0); EOSINOPHILS % (MANUAL) 1 % (0-4); LYMPHOCYTES % (MANUAL) 6 % (16-48); MONOCYTES % (MANUAL) 5 % (0-11.0); NEUTROPHILS % (MANUAL) 84 (42-76)
--- NOTE | 2017-05-06 11:49 | NUR ---
MS RN NOTES ACCUCHECK DONE. BS 83 MG/DL. NO INSULIN COVERAGE GIVEN.
[2017-05-06] MEDS: FIBERSOURCE HN 1,000 ML BOTTLE GT PRN (12:18)
[2017-05-06] MEDS: SOD FERRIC GLUC 125 MG in IV NS 0.9% 100 ML IV SCH (14:09)
[2017-05-06 16:00] VITALS: BP_SYST 134; BP_SYST 139; BP_DIAS 55
--- NOTE | 2017-05-06 17:24 | NUR ---
MS RN NOTES ACCUCHECK DONE. BS 116 MG/DL. NO INSULIN COVERAGE GIVEN.
--- NOTE | 2017-05-06 18:45 | NUR ---
MS RN CLOSING NOTES PT IN BED, MADE COMOFRTABLE. ASLEEP, ON O2 VIA NC AT 2L/MIN.RESPIRATIONS EVEN, UNLABORED, NO SOB NOTED O2SAT 95%.IV SITE MOOKIE PICC LINE INTACT, IVF KVO, SITE CLEAR, CDI DRESSING, ON GT FEEDING FIBERSOURSE AT 70ML/HR, TOLERATES WELL, 0 RESIDUAL, HOB ELEVATED. F/C PATENT DRAINING YELLOW COLOR URINE WITH 750 ML OUTPUT, NO S/SX OF PAIN OR DISCOMFORT NOTED. BED LOCKED AND IN LOWEST POSITION. SAFETY MEASURES IN PLACE. ALL NEED MET AT TIME, OBSERVED ISOLATION PRECAUTION. TURNED AND REPOSITIONED Q2H, PM CARE DONE, WILL ENDORSE TO NEXT SHIFT FOR SERGIO. S/P ST4 SACRAL DECUB DEBRIDEMENT BY RENAN HUNTLEY 05/06/17. DRESSING IN PLACE.
[2017-05-06 20:00] VITALS: BP 101/44
--- NOTE | 2017-05-06 20:00 | NUR ---
MS WELDING SPECIALIST INITIAL NOTES' SEEN PT IN BED RESTING COMFORTABLY IN BED WITH O2 AT 2 LITERS VIA NC. BREATHING EVEN AND NON-LABORED.HE ALSO ON G-TUBE FEEDING FIBER SOURCE AT 70ML/HR , NO ASPIRATION NOTED, 3ML RESIDUAL NOTED AT THIS TIME. KWONG TO GRAVITY WITH CLEAR YELLOW OUTPUT NOTED AT THIS TIME. KEPT HIM WARM AND COMFORTABLE AT ALL TIMES. REPOSITION HIM FOR COMFORT. ISOLATION PRECAUTION IMPLEMENTED AND OBSERVED. WILL CONTINUE TO MONITOR.
[2017-05-06 20:36] VITALS: BP 101/94
[2017-05-06] MEDS: TAMSULOSIN 0.4 MG CAP.SR.24H PO SCH (21:08)
--- NOTE | 2017-05-07 | NUR ---
JOB DEVELOPMENT SPECIALIST/NOTES PT BLOOD SUGAR CHECKED DONE 134, 2 UNITS OF INSULIN GIVEN LEONID SQ ORDERED. NO SIGNS OF HYPO/HYPER GLYCEMIA NOTED. PT RESTING COMFORTABLY IN BED WITHOUT ANY ACUTE DISTRESS NOTED. G-TUBE FEEDING TOLERATED WELL NO ASPIRATION NOTED. KEPT HIM WARM AND COMFORTABLE AT ALL TIMES. WILL CONTINUE TO MONITOR.
[2017-05-07] MEDS: BLOOD SUGAR DIAGNOSTIC 1 EACH STRIP IN SCH ×4 (00:27→17:13)
[2017-05-07] MEDS: INSULIN REGULAR, HUMAN 100 UNIT/ML 3 ML VIAL SQ PRN ×3 (00:43→11:44)
[2017-05-07] MEDS: ALBUTEROL FS 2.5 MG/3 ML VIAL.NEB NEB SCH ×4 (01:54→20:23)
[2017-05-07] MEDS: FIBERSOURCE HN 1,000 ML BOTTLE GT PRN ×2 (05:42→22:50)
--- NOTE | 2017-05-07 07:15 | NUR ---
PEGGER CLOSING NOTES' MORNING CARE DONE, PT STABLE LEONID THE NIGHT. G-TUBE FEEDING TOLERATED WELL. REPOSITION HIM FOR COMFORT. ALL DUE MEDS GIVEN AND ALL NEEDS MET. KEPT HIM WARM AND COMFORTABLE AT ALL TIMES. RESPIRATION EVEN AND NON-LABORED. ENDORSE TO AM NURSE FOR CONTINUITY OF CARE.
--- NOTE | 2017-05-07 07:24 | NUR ---
MS RN OPENING NOTES RECEIVED PATIENT IN STABLE CONDITION. PATIENT IS RESTING IN BED. BEDSIDE RAILS ARE UP X2. BED IS LOCKED AND LOWERED. CALL LIGHT IS WITHIN REACH. WILL CONTINUE TO MONITOR.
[2017-05-07 07:27] LABS: CALCIUM, SERUM 7.8 mg/dL (8.5-10.1); CARBON DIOXIDE 32 mmol/L (21-32); CHLORIDE 114 mmol/L (98-107); CREATININE 1.3 mg/dL (0.6-1.3); GLUCOSE 84 mg/dL (74-106); POTASSIUM 4.1 mmol/L (3.5-5.1); SODIUM SERUM 150 mmol/L (136-145); UREA NITROGEN, BLOOD 65 mg/dL (7-18)
[2017-05-07] MEDS: SUCRALFATE 1 G/10 ML UDC GT SCH ×4 (07:41→21:21)
[2017-05-07 08:00] VITALS: BP 120/63
[2017-05-07] MEDS: LEVOTHYROXINE SODIUM 50 MCG TABLET GT SCH (08:22)
[2017-05-07] MEDS: MULTIVITAMINS,THERAGRAN 1 UDTAB TABLET PO SCH (08:22)
[2017-05-07] MEDS: PANTOPRAZOLE 40 MG VIAL IV SCH ×2 (08:22→21:20)
[2017-05-07] MEDS: ASCORBIC ACID 500 MG TABLET PO SCH (08:22)
[2017-05-07] MEDS: FUROSEMIDE 20 MG/2 ML VIAL IV SCH (08:22)
[2017-05-07] MEDS: ZINC SULFATE 220 MG CAPSULE PO SCH (08:22)
[2017-05-07] MEDS: VORICONAZOLE 200 MG TABLET PO SCH ×2 (08:22→21:20)
[2017-05-07] MEDS: CADEXOMER IODINE 40 GM TUBE TP SCH (08:23)
[2017-05-07] MEDS: Z GUARD REMEDY 2 OZ OINT TP SCH (08:23)
[2017-05-07] MEDS: NEOMY SULF/BACITRAC ZN/POLY 15 GM TUBE TP SCH ×2 (08:24→16:42)
[2017-05-07] MEDS: MUPIROCIN OINT 2% 22 GM TUBE SCH ×2 (08:24→21:22)
[2017-05-07] MEDS: PROSOURCE / PROSTAT (PYXIS) 30 ML UDC GT SCH (08:24)
[2017-05-07] MEDS: DAKINS QUARTER STRENGTH (0.125%) 480 ML BOTTLE TOP SCH ×2 (08:25→21:21)
--- NOTE | 2017-05-07 12:47 | NUR ---
PER DR SAM. ANDRADE. VOIDING TRIAL INITIATED. REMOVED KWONG CATHETER. WILL MONITOR URINE OUTPUT. Addendum: 05/07/17 at 1840 by SUZETTE BEAN RN DISREGARD THE NOTE. WRONG PATIENT.
--- NOTE | 2017-05-07 13:30 | NUR ---
WOUND DEBRIDEMENT OF THE SACRUM PERFORMED AT THE BEDSIDE.
[2017-05-07] MEDS ORDERED: LIDOCAINE 2%-EPI 1:100,000 30 ML VIAL TP ONE (14:00)
[2017-05-07] MEDS ORDERED: SILVER NITRATE APPLICATOR 1 EA BOX TP ONE (14:00)
[2017-05-07] MEDS: SOD FERRIC GLUC 125 MG in IV NS 0.9% 100 ML IV SCH (14:21)
[2017-05-07 16:00] VITALS: BP 121/69
--- NOTE | 2017-05-07 18:39 | NUR ---
PATIENT IS RESTING IN BED. IN NO APPARENT DISTRESS. BED IS LOCKED AND LOWERED. BEDSIDE RAILS ARE UP X2. WILL ENDORSE CARE TO PORTUGUESE TUTOR NURSE FOR SERGIO.
--- NOTE | 2017-05-07 19:45 | NUR ---
MS RN OPENING NOTES RECEIVED PATIENT LAYING IN MODERATE SEMI AGUILAR POSITION. A & O X 1 WITH CONFUSION. RESP EVEN & NON LABORED. V/S CHECKED 129/81, 97, 17, 99.3, 100 % @ 3LPM. NO ACUTE DISTRESS NOTED AT THIS TIME. ABLE TO ANSWER YES OR NO TO SIMPLE QUESTIONS. NO S/S OF PAIN NOTED. MIDLINE TO MOOKIE, TKO @ 5ML/HR. KWONG CATH IN PLACE WITH CLEAR YELLOW URINE RUNNING. GTF FIBERSOURCE HN @ 70 ML/HR. RESIDUAL, PATENCY, PLACEMENT CHECKED. ASPIRATION & SAFETY PRECAUTIONS IN PLACE. BED IN LOW LOCKED POSITION. CALL LIGHT WITHIN REACH. OBSERVING CLOSELY FOR ANY SERGIO.
--- NOTE | 2017-05-07 19:47 | NUR ---
ADDENDUM WRONG ENTRY OF MIDLINE. PATIENT HAS MOOKIE PICC LINE NOT MID LINE.
[2017-05-07 20:00] VITALS: BP 129/81
[2017-05-07] MEDS: TAMSULOSIN 0.4 MG CAP.SR.24H PO SCH (21:21)
[2017-05-07] MEDS: ACETAMINOPHEN 325 MG TABLET PO PRN (22:43)
--- NOTE | 2017-05-07 22:43 | NUR ---
PRN TYLENOL GIVEN PATIENT NOTED WITH TEMPERATURE OF 99.5, PRN TYLENOL GIVEN VIA GT. PATIENT IS NPO & ON GTF. WILL REASSESS FOR EFFECTIVENESS OF TYLENOL.
[2017-05-07] MEDS: IV NS 0.9% 250 ML IV PRN (23:06)
[2017-05-08] MEDS: BLOOD SUGAR DIAGNOSTIC 1 EACH STRIP IN SCH ×5 (00:07→23:52)
[2017-05-08] MEDS: ALBUTEROL FS 2.5 MG/3 ML VIAL.NEB NEB SCH ×4 (01:38→20:08)
[2017-05-08] MEDS: INSULIN REGULAR, HUMAN 100 UNIT/ML 3 ML VIAL SQ PRN ×2 (06:10→11:42)
--- NOTE | 2017-05-08 06:59 | NUR ---
MS RN CLOSING NOTES PATIENT SLEPT INTERMITTENTLY. A & O X 1, CONFUSED. NO SOB, NO S/S OF PAIN & NO ACTIVE BLEEDING NOTED. GTF RUNNING @ 70 ML/HR, TOLERATED WELL. MOOKIE PICC LINE WITH NS 5ML/HR, TKO. KWONG CATH IN PLACE WITH BASHIR COLOR URINE. TURNED & REPOSITIONED PER PROTOCOL. PT GETS RESISTIVE TO CARE DURING ADL CARE. BODY TEMP 98 F. SPOKE TO THE DAUGHTER, SHE WOULD LIKE TO TALK TO MD IN AM. KEPT CLEAN & DRY. ALL NEEDS MET. SAFETY MEASURES IN PLACE. BED IN LOW LOCKED POSITION. CALL LIGHT WITHIN REACH. WILL ENDORSE TO AM RN FOR CONTINUITY OF CARE & ALSO DTR WANTS TO TALK TO MD.
--- NOTE | 2017-05-08 07:25 | NUR ---
RN MS NOTES PATIENT ALERT AND ORIENTED X1, BREATHING EVEN AND UNLABORED, NO SOB, NO DISTRESS NOTED, ON O2 AT 3LPM VIA NC WITH SPO2 OF 94%, TURNED AND REPOSITIONED, KEPT COMFORTABLE, NEEDS ATTENDED AND MET, HEAD OF BED ELEVATED AT ALL TIMES, GTF INFUSING AND TOLERATING WELL, NO RESIDUAL, PLACEMENT VERIFIED, BED ALARM ON, BED IN LOW POSITION AND LOCKED, SIDERAILS X2 UP, CALL LIGHT WITHIN REACH, WILL CONTINUE TO MONITOR.
[2017-05-08 08:00] VITALS: BP 126/61
[2017-05-08] MEDS: MULTIVITAMINS,THERAGRAN 1 UDTAB TABLET PO SCH (09:01)
[2017-05-08] MEDS: ASCORBIC ACID 500 MG TABLET PO SCH (09:01)
[2017-05-08] MEDS: VORICONAZOLE 200 MG TABLET PO SCH ×2 (09:01→21:08)
[2017-05-08] MEDS: ZINC SULFATE 220 MG CAPSULE PO SCH (09:01)
[2017-05-08] MEDS: LEVOTHYROXINE SODIUM 50 MCG TABLET GT SCH (09:01)
[2017-05-08] MEDS: SUCRALFATE 1 G/10 ML UDC GT SCH ×4 (09:02→21:08)
[2017-05-08] MEDS: Z GUARD REMEDY 2 OZ OINT TP SCH (09:02)
[2017-05-08] MEDS: FUROSEMIDE 20 MG/2 ML VIAL IV SCH (09:02)
[2017-05-08] MEDS: PANTOPRAZOLE 40 MG VIAL IV SCH ×2 (09:02→21:09)
[2017-05-08] MEDS: PROSOURCE / PROSTAT (PYXIS) 30 ML UDC GT SCH (09:03)
[2017-05-08] MEDS: CADEXOMER IODINE 40 GM TUBE TP SCH (09:04)
[2017-05-08] MEDS: DAKINS QUARTER STRENGTH (0.125%) 480 ML BOTTLE TOP SCH ×2 (09:04→21:07)
[2017-05-08] MEDS: MUPIROCIN OINT 2% 22 GM TUBE SCH ×2 (09:04→21:07)
[2017-05-08] MEDS: NEOMY SULF/BACITRAC ZN/POLY 15 GM TUBE TP SCH ×2 (09:04→16:31)
[2017-05-08 14:14] LABS: EOSINOPHILS # (AUTO) 0.1 /CMM (0.0-0.7); EOSINOPHILS % (AUTO) 0.9 % (0.0-6.0); HEMATOCRIT 25 % (39-51); LYMPHOCYTES # (AUTO) 0.6 /CMM (0.8-4.8); LYMPHOCYTES % (AUTO) 8.8 % (20.0-44.0); MEAN CORPUSCULAR HEMOGLOBIN 32 PG (26.0-33.0); MEAN CORPUSCULAR HGB CONC 32 g/dl (31.0-36.0); MEAN CORPUSCULAR VOLUME 98 fL (80-96); MONOCYTES # (AUTO) 0.4 /CMM (0.1-1.30); NEUTROPHILS # (AUTO) 5.8 /CMM (1.8-8.9); NEUTROPHILS % (AUTO) 84.3 % (43.0-81.0); PLATELET COUNT (AUTO) 79 /CMM (150-450); RDW COEFFICIENT OF VARIATION 23.6 (11.5-15.0); RED BLOOD CELL COUNT(AUTO) 2.53 MIL/uL (4.5-6.0); WHITE BLOOD COUNT (AUTO) 6.9 K/uL (4.3-11.0)
[2017-05-08] MEDS: SOD FERRIC GLUC 125 MG in IV NS 0.9% 100 ML IV SCH (14:32)
[2017-05-08 14:34] LABS: ALANINE AMINOTRANSFERASE 25 U/L (12-78); ALKALINE PHOSPHATASE 197 U/L (46-116); ASPARTATE AMINOTRANSFERASE 28 U/L (15-37); BILIRUBIN,TOTAL 0.4 mg/dL (0.2-1.0); CALCIUM, SERUM 7.9 mg/dL (8.5-10.1); CARBON DIOXIDE 35 mmol/L (21-32); CHLORIDE 113 mmol/L (98-107); CREATININE 1.4 mg/dL (0.6-1.3); GLUCOSE 138 mg/dL (74-106); POTASSIUM 3.7 mmol/L (3.5-5.1); SODIUM SERUM 150 mmol/L (136-145); TOTAL PROTEIN, SERUM 4.2 g/dL (6.4-8.2); UREA NITROGEN, BLOOD 75 mg/dL (7-18)
[2017-05-08 14:47] LABS: ALBUMIN 0.9 g/dL (3.4-5.0)
[2017-05-08] MEDS ORDERED: ALBUTEROL FS 2.5 MG/3 ML VIAL.NEB NEB PRN (15:30)
--- NOTE | 2017-05-08 15:30 | NUR ---
RN MS NOTES LAB RESULTS RELAYED TO DR. TOLEDO AND RECEIVED NEW ORDER. ORDER NOTED AND CARRIED OUT.
[2017-05-08 16:00] VITALS: BP 112/55
[2017-05-08] MEDS: IV D5W 1,000 ML IV PRN (16:27)
[2017-05-08] MEDS: FIBERSOURCE HN 1,000 ML BOTTLE GT PRN (17:18)
--- NOTE | 2017-05-08 19:38 | NUR ---
RN MS NOTES PATIENT'S HOB ELEVATED AT ALL TIMES, GTF ONGOING AND TOLERATING WELL, IVF INFUSING, WOUND TREATMENT RENDERED, TURNED AND REPOSITIONED Q2HRS, KEPT PATIENT COMFORTABLE, ALL DUE MEDS GIVEN ORDERED, FAMILY MADE AWARE OF UPDATES, ALL NEEDS ATTENDED AND MET, CALL LIGHT WITHIN REACH, ENDORSED TO [facility] PROMOTER FOR SERGIO.
--- NOTE | 2017-05-08 19:43 | NUR ---
MS RN OPENING NOTES RECEIVED PATIENT LAYING IN MODERATE SEMI AGUILAR POSITION. A & O X 1 WITH CONFUSION. RESP EVEN & NON LABORED. V/S NOTED TO BE 140/66, 98, 18, 98.2, 96 % @ 3LPM. NO ACUTE DISTRESS, NO S/S OF PAIN NOTED. ABLE TO ANSWER YES OR NO TO SIMPLE QUESTIONS. PICC LINE TO MOOKIE, RUNNING @D5W @ 60 ML/HR, INTACT PATENT. KWONG CATH IN PLACE WITH BASHIR COLOR URINE. GTF FIBERSOURCE HN @ 70 ML/HR. RESIDUAL, PATENCY, PLACEMENT CHECKED. ASPIRATION & SAFETY PRECAUTIONS IN PLACE. BED IN LOW LOCKED POSITION. CALL LIGHT WITHIN REACH. OBSERVING CLOSELY FOR ANY FURTHER CHANGE OF CONDITION.
[2017-05-08 20:00] VITALS: BP 140/66
[2017-05-08] MEDS: TAMSULOSIN 0.4 MG CAP.SR.24H PO SCH (21:08)
[2017-05-09] MEDS: ALBUTEROL FS 2.5 MG/3 ML VIAL.NEB NEB SCH ×4 (02:15→20:18)
[2017-05-09] MEDS: BLOOD SUGAR DIAGNOSTIC 1 EACH STRIP IN SCH ×3 (06:07→17:30)
[2017-05-09] MEDS: INSULIN REGULAR, HUMAN 100 UNIT/ML 3 ML VIAL SQ PRN (06:09)
--- NOTE | 2017-05-09 07:08 | NUR ---
MS RN CLOSING NOTES PATIENT LAYING IN MODERATE SEMI AGUILAR POSITION. A & O X 1 WITH CONFUSION. RESP EVEN & NON LABORED. V/S WNL. AFEBRILE. ON O2 @ 2LMP VIA NC. NO ACUTE DISTRESS, NO S/S OF PAIN NOTED. PICC LINE TO MOOKIE, RUNNING @D5W @ 60 ML/HR, INTACT PATENT. KWONG CATH IN PLACE WITH BASHIR COLOR URINE. GTF FIBERSOURCE HN @ 70 ML/HR. RESIDUAL, PATENCY, ASPIRATION & SAFETY PRECAUTIONS IN PLACE. TURNED & REPOSITIONED IN BED. ALL NEEDS MET. BED IN LOW LOCKED POSITION. CALL LIGHT WITHIN REACH. WILL ENDORSE TO AM RN FOR CONTINUITY OF CARE.
--- NOTE | 2017-05-09 07:49 | NUR ---
MS/RN OPENING NOTE PATIENT RECEIVED IN BED IN STABLE CONDITION. A/O X 1. NO SIGNS OF ACUTE DISTRESS. NO COMPLAIN OF PAIN OR DISCOMFORT. ON GTUBE FEEDING TOLERATING WELL. HOB ELEVATED FOR ASPIRATION PRECAUTION. FC INTACT AND FLOWING FREELY. ALL NEEDS ATTENDED TO. CALL LIGHT WITHIN REACH. WILL CONTINUE TO MONITOR TO ENSURE SAFETY.
[2017-05-09 08:00] VITALS: BP 116/53
[2017-05-09 08:01] LABS: CALCIUM, SERUM 7.9 mg/dL (8.5-10.1); CARBON DIOXIDE 33 mmol/L (21-32); CHLORIDE 111 mmol/L (98-107); CREATININE 1.3 mg/dL (0.6-1.3); GLUCOSE 132 mg/dL (74-106); POTASSIUM 3.6 mmol/L (3.5-5.1); SODIUM SERUM 144 mmol/L (136-145); UREA NITROGEN, BLOOD 72 mg/dL (7-18)
[2017-05-09] MEDS: DAKINS QUARTER STRENGTH (0.125%) 480 ML BOTTLE TOP SCH ×2 (09:07→22:18)
[2017-05-09] MEDS: MUPIROCIN OINT 2% 22 GM TUBE SCH ×2 (09:07→22:18)
[2017-05-09] MEDS: CADEXOMER IODINE 40 GM TUBE TP SCH (09:07)
[2017-05-09] MEDS: NEOMY SULF/BACITRAC ZN/POLY 15 GM TUBE TP SCH ×2 (09:08→17:30)
[2017-05-09] MEDS: LEVOTHYROXINE SODIUM 50 MCG TABLET GT SCH (09:10)
[2017-05-09] MEDS: VORICONAZOLE 200 MG TABLET PO SCH ×2 (09:10→22:17)
[2017-05-09] MEDS: PANTOPRAZOLE 40 MG VIAL IV SCH ×2 (09:10→22:29)
[2017-05-09] MEDS: MULTIVITAMINS,THERAGRAN 1 UDTAB TABLET PO SCH (09:10)
[2017-05-09] MEDS: FUROSEMIDE 20 MG/2 ML VIAL IV SCH (09:10)
[2017-05-09] MEDS: ZINC SULFATE 220 MG CAPSULE PO SCH (09:10)
[2017-05-09] MEDS: ASCORBIC ACID 500 MG TABLET PO SCH (09:10)
[2017-05-09] MEDS: PROSOURCE / PROSTAT (PYXIS) 30 ML UDC GT SCH (09:10)
[2017-05-09] MEDS: SUCRALFATE 1 G/10 ML UDC GT SCH ×4 (09:13→22:17)
[2017-05-09] MEDS: Z GUARD REMEDY 2 OZ OINT TP SCH (09:13)
--- NOTE | 2017-05-09 11:00 | NUR ---
MS/RN SEEN BY DR ECHEVARRIA PATIENT SEEN BY DR ECHEVARRIA WITH NO NEW ORDERS.
[2017-05-09] MEDS: IV D5W 1,000 ML IV PRN (12:13)
--- NOTE | 2017-05-09 13:57 | NUR ---
MS/RN SEEN BY VICTORIA WOLF PATIENT SEEN BY VICTORIA WOLF WITH NO NEW ORDERS.
[2017-05-09] MEDS: SOD FERRIC GLUC 125 MG in IV NS 0.9% 100 ML IV SCH (15:07)
[2017-05-09 16:00] VITALS: BP 121/66
[2017-05-09] MEDS: FIBERSOURCE HN 1,000 ML BOTTLE GT PRN (17:30)
--- NOTE | 2017-05-09 18:00 | NUR ---
MS/RN PICC LINE DRESSING CHANGE PICC LINE SITE DRESSING CHANGE. TOLERATED WELL. NO S/S OF BLEEDING NOTED. NO DRAINAGE NOTED. SITE KEPT CLEAN AND DRY. WILL CONTINUE TO MONITOR SITE FOR FURTHER CHANGES.
--- NOTE | 2017-05-09 18:34 | NUR ---
MS/RN CLOSING NOTE PATIENT IN BED IN STABLE CONDITION. A/O X 1. NO SIGNS OF ACUTE DISTRESS. NO COMPLAIN OF PAIN OR DISCOMFORT. ON OXYGEN 2LPM TOLERATED WELL. ON G TUBE FEEDING. TOLERATING WELL. HOB ELEVATED AT ALL TIMES FOR ASPIRATION PRECAUTION. ALL NEEDS ATTENDED TO. CALL LIGHT WITHIN REACH. WILL ENDORSE TO NEXT SHIFT FOR CONTINUITY OF CARE.
--- NOTE | 2017-05-09 19:00 | NUR ---
MS RN OPENING NOTES IN BED, WITH SITTER, PT A/O X 1, ON 2LPM VIA NC 02 SAT 96% NO S/S OF DISTRESS NOTED. STABLE CONDITION. BREATHING EVEN AND UNLABORED, SAFETY MEASURES IN PLACE, BED LOCKED AND IN LOWEST POSITION, CALL LIGHT IN REACH. WILL CONTINUE TO MONITOR.
[2017-05-09 20:00] VITALS: BP 107/54
--- NOTE | 2017-05-09 22:07 | NUR ---
PAGED DRAll RENAL NURSE FOR GHADA ARMANDO WHICH IS [facility] OWN HOSPITALIST [facility] MARIYA PATIENT IS HAVING ACTIVE BLOODY STOOL MODERATE AMOUNT AND LIQUID FORM
--- NOTE | 2017-05-09 22:12 | NUR ---
SPOKE TO DAUGHTER BELLO TO RELAY CHANGE OF CONDITION PATIENTS VITAL SIGNS ARE NORMAL BP 107/66 R 19 P 69 T 98.5
[2017-05-09] MEDS: TAMSULOSIN 0.4 MG CAP.SR.24H PO SCH (22:17)
--- NOTE | 2017-05-09 22:40 | NUR ---
MS RN NOTES DR. JUAN JOSÉ MERAZ CALLED BACK AND I RELAYED CHANGE OF CONDITION AND ORDERED HEMOGRAM STAT C-DIFF STOOL, AND OCCULT BLOOD STOOL NOTED AND CARRIED OUT RELAYED TO DR. JUAN JOSÉ MERAZ ALSO THAT THE PT HAS NO DIARRHEA OF THE MOMENT
--- NOTE | 2017-05-09 22:50 | NUR ---
CALLED AND TALKED TO THE DAUGHTER EXPLAINED THAT PT MIGHT BE HAVING ANOTHER BLOOD TRANSFUSION BELLO GIBSON GAVE FULL CONSENT WITH ANOTHER 1 RN WITNESS
[2017-05-09 22:54] LABS: HEMATOCRIT 21 % (39-51); MEAN CORPUSCULAR HEMOGLOBIN 32 PG (26.0-33.0); MEAN CORPUSCULAR HGB CONC 33 g/dl (31.0-36.0); MEAN CORPUSCULAR VOLUME 97 fL (80-96); PLATELET COUNT (AUTO) 86 /CMM (150-450); RED BLOOD CELL COUNT(AUTO) 2.12 MIL/uL (4.5-6.0); WHITE BLOOD COUNT (AUTO) 8.8 K/uL (4.3-11.0)
[2017-05-09 23:01] LABS: HEMOGLOBIN 6.7 g/dL (13.5-17.5)
--- NOTE | 2017-05-09 23:20 | NUR ---
PAGED DR. MERAZ WILL RELAY RESULT OF RECENT HGB AWAITING CALL BACK
--- NOTE | 2017-05-09 23:58 | NUR ---
DR SATURNINO MERAZ CALLED BACK RELAYED RECENT HGB WITH NEW ORDERS TO TRANSFUSE 2 PRBC AND 1 FFP NOTED AND CARRIED OUT
[2017-05-10] VITALS (21 sets, daily range): BP systolic 97–142; BP diastolic 52–93
[2017-05-10] MEDS: BLOOD SUGAR DIAGNOSTIC 1 EACH STRIP IN SCH ×5 (00:17→23:44)
[2017-05-10] MEDS: INSULIN REGULAR, HUMAN 100 UNIT/ML 3 ML VIAL SQ PRN ×3 (00:18→23:52)
--- NOTE | 2017-05-10 00:44 | NUR ---
SPOKE TO DR. SATURNINO MERAZ VIA PHONE TO CLARIFY WHICH TO TRANSFUSE FIRST PER DR. MARIYA MATAMOROS TRANSFUSE FIRST THE PRBC 1 AND THEN GIVE IV FUROSEMIDE 40 MG THEN TRANSFUSE 1 FFP AND THEN THE 2ND PRBC NOTED AND CARRIED OUT
[2017-05-10] MEDS: ALBUTEROL FS 2.5 MG/3 ML VIAL.NEB NEB SCH ×4 (01:50→19:33)
--- NOTE | 2017-05-10 04:19 | NUR ---
S/P BLOOD TRANSFUSION OF 1 PRBC TOLERATED WELL. NO A/R NOTED NO FEVER NO HIVES, NO SOB, IN STABLE CONDITION
[2017-05-10] MEDS ORDERED: FUROSEMIDE 40 MG/4 ML VIAL ONE (04:27)
[2017-05-10] MEDS ORDERED: FUROSEMIDE 40 MG/4 ML VIAL IV SCH (04:30)
--- NOTE | 2017-05-10 06:40 | NUR ---
MS RN CLOSING NOTES IN BED ASLEEP AND EASILY AWAKEN, HOB AT ALL TIMES, ON 3LPM VIA NC 02 SAT AT 97% IN STABLE CONDITION NO S/S OF ACUTE DISTRESS, RESPIRATIONS EVEN AND UNLABORED. KEPT CLEAN AND DRY AND COMFORTABLE. AFEBRILE, NURSING CARE RENDERED, NEEDS ATTENDED AND ANTICIPATED, GOOD SKIN CARE PROVIDED. STRICTLY REPOSITION EVERY 2 HOURS FOR SKIN MGT. FREQUENT VISUAL CHECK DONE FOR SAFETY EVERY 2 HOURS. SAFE HAZARD FREE ENVIRONMENT PROVIDED. CALL LIGHT WITHIN EASY TO REACH, ON LOW BED AT ALL TIMES TO ENSURE SAFETY, WILL ENDORSE TO THE NEXT SHIFT CONTINUE PLAN OF CARE.
--- NOTE | 2017-05-10 06:41 | NUR ---
STILL ONGOING TRANSFUSION OF FFP. 1 UNIT PRBC TO BE TRANSFUSED BY DAY SHIFT RN ENDORSE ACCORDINGLY
--- NOTE | 2017-05-10 07:34 | NUR ---
RN NOTES: PATIENT RESTING IN BED. FFP UNIT TRANSFUSION JUST ENDED. NONLABORED BREATHING NOTED ON 3 L NASAL CANNULA. NO SIGNS OF DISTRESS. NO FACIAL GRIMACES NOTED. PICC LINE PATENT AND INTACT. BLOOD PRESSURE: 102/74, HR 95/MIN, TEMPERATURE 97.8F, SPO2 95%. BED IN LOWEST LOCKED POSITION. CALL LIGHT WITHIN REACH. WILL CONTINUE TO MONITOR
[2017-05-10] MEDS: SUCRALFATE 1 G/10 ML UDC GT SCH ×4 (08:27→21:01)
[2017-05-10] MEDS: LEVOTHYROXINE SODIUM 50 MCG TABLET GT SCH (08:28)
[2017-05-10] MEDS: MULTIVITAMINS,THERAGRAN 1 UDTAB TABLET PO SCH (08:28)
[2017-05-10] MEDS: PROSOURCE / PROSTAT (PYXIS) 30 ML UDC GT SCH (08:28)
[2017-05-10] MEDS: ZINC SULFATE 220 MG CAPSULE PO SCH (08:28)
[2017-05-10] MEDS: ASCORBIC ACID 500 MG TABLET PO SCH (08:28)
[2017-05-10] MEDS: DAKINS QUARTER STRENGTH (0.125%) 480 ML BOTTLE TOP SCH ×2 (08:38→20:02)
[2017-05-10] MEDS: NEOMY SULF/BACITRAC ZN/POLY 15 GM TUBE TP SCH ×2 (08:39→17:00)
[2017-05-10] MEDS: CADEXOMER IODINE 40 GM TUBE TP SCH (08:39)
[2017-05-10] MEDS: MUPIROCIN OINT 2% 22 GM TUBE SCH ×2 (08:39→20:02)
[2017-05-10] MEDS: Z GUARD REMEDY 2 OZ OINT TP SCH (08:40)
[2017-05-10] MEDS: PANTOPRAZOLE 40 MG VIAL IV SCH ×2 (08:41→20:02)
[2017-05-10] MEDS: FUROSEMIDE 20 MG/2 ML VIAL IV SCH (09:00)
--- NOTE | 2017-05-10 10:26 | NUR ---
RN NOTES: LASIX HELD DUE TO BP OF 105/45. DR GALO AWARE. SPOKE TO LAB NOW. PACKED RED BLOOD CELLS READY. DR GALO AWAITING ON HEMOGLOBIN LEVELS BEFORE SECOND TRANSFUSION
[2017-05-10 10:49] LABS: BASOPHILS % (AUTO) 0.2 % (0.0-2.0); EOSINOPHILS % (AUTO) 0.3 % (0.0-6.0); HEMATOCRIT 23 % (39-51); HEMOGLOBIN 7.3 g/dL (13.5-17.5); LYMPHOCYTES # (AUTO) 1.1 /CMM (0.8-4.8); LYMPHOCYTES % (AUTO) 10.7 % (20.0-44.0); MEAN CORPUSCULAR HEMOGLOBIN 32 PG (26.0-33.0); MEAN CORPUSCULAR HGB CONC 33 g/dl (31.0-36.0); MEAN CORPUSCULAR VOLUME 97 fL (80-96); MONOCYTES # (AUTO) 0.8 /CMM (0.1-1.30); MONOCYTES % (AUTO) 8.4 % (2.0-12.0); NEUTROPHILS % (AUTO) 80.4 % (43.0-81.0); PLATELET COUNT (AUTO) 78 /CMM (150-450); RDW COEFFICIENT OF VARIATION 21.3 (11.5-15.0); RED BLOOD CELL COUNT(AUTO) 2.32 MIL/uL (4.5-6.0); WHITE BLOOD COUNT (AUTO) 9.9 K/uL (4.3-11.0)
[2017-05-10 12:26] LABS: LYMPHOCYTES % (MANUAL) 14 % (16-48); MONOCYTES % (MANUAL) 9 % (0-11.0); NEUTROPHILS % (MANUAL) 77 (42-76)
--- NOTE | 2017-05-10 12:30 | NUR ---
RN NOTES: INFORMED DR GALO OF PATIENT'S NEW LAB RESULTS. AWARE ABOUT SLIGHT BLEEDING FROM GUMS. STATED TO PROCEED WITH THE SECONDS TRANSFUSION. PATIENT'S MOUTH BEING CLEANED WITH SWABS WITH NS
[2017-05-10] MEDS: MESALAMINE 400 MG CAP PO SCH ×2 (13:50→18:33)
[2017-05-10] MEDS: FIBERSOURCE HN 1,000 ML BOTTLE GT PRN (13:58)
--- NOTE | 2017-05-10 16:00 | NUR ---
RN NOTES: RECEIVED BLOOD FROM LAB AT 1300. TIME NOTED ON PHONE THAT MATCHES HOSPITAL COMPUTER TIME. BLOOD TRANSFUSION STARTED IMMEDIATELY UPON ARRIVAL TO UNIT.BLOOD KEPT IN BOX TILL ADMINISTRATION TIME. NO KINKS NOTED. NO CLOTS. VITAL SIGNS 98/45, PULSE 68, RR 20, 97.6f, SPO2 95% ON 3 L NASAL CANNULA. NONLABORED BREATHING NOTED. SKIN DRY, NO DIAPHORESIS. TRANSFUSION STARTED AT 70 ML/HOUR NO REACTION NOTED DURING INITIAL 15 MINUTES. NONLABORED BREATHING ON 3 L NASAL CANNULA. TEMPERATURE 97.0, HEART RATE 98. NO SIGNS OF RASHES NOTED. PATIENT AFEBRILE. TRANSFUSION INCREASED AT 100ML/HOUR. \ PATIENT CHECKED ON AND NO SIGNS OF DISTRESS. TRANSFUSION INCREASED AFTER 1 HOUR TO 125 ML/HOUR. BLOOD PRESSURE 108/52. SPO2 94% ON 3 L NASAL CANNULA. TEMPERATURE 97.4F. PATIENT RESPONDING, MAKING JOKES, NO SIGNS OF DISTRESS NOTED. 1600 TRANSFUSION ENDED, TEMPERATURE 97.6F, RR 20, BP 122/73, PULSE 100, SPO2 93%-95%. NO SIGNS OF DISTRESS NOTED. PATIENT RESPONDING. NO SIGNS RASHES OR HIVES. PATIENT WELL AND COOPERATIVE. HEART RATE CHECKED MANUALLY
--- NOTE | 2017-05-10 16:46 | NUR ---
RN NOTES: DR GALO AWARE OF CDIFF. ORDERED FLAGYL 500 MG IV Q 8HOURS
[2017-05-10] MEDS: METRONIDAZOLE 500MG/ NS 100ML 500 MG in PREMIX 1 EA IV SCH (18:42)
--- NOTE | 2017-05-10 19:15 | NUR ---
MS RN OPENING NOTES PT IS IN BED AND IS A/OX1. PT HAS 2LPM VIA NC AND IS TOLERATING WELL. PT APPEARS TO BE LETHARGIC. PT EASILY AROUSABLE. PS HAS KWONG CATH AND IS ATTACHED TO DRAINAGE BAG WITH URINE NOTED. NO S/S OF DISTRESS NOTED AT THIS TIME. NO SOB NOTED. CALL LIGHT WITHIN PT'S REACH. BED KEPT IN LOW, LOCKED POSITION, AND SIDE RAILS X 2 UP. PT HAS MOOKIE PICC LINE AND IS PATENT AND INTACT. PT HAS G TUBE AND NO RESIDUAL NOTED. PT HAS FEEDING OF FIBERSOURCE AT 70 ML/HR. WILL CONTINUE TO MONITOR PT.
--- NOTE | 2017-05-10 19:40 | NUR ---
RN NOTES: PATIENT RESTING IN BED. NO SIGNS OF DISTRESS NOTED. NONLBAORED BREATHING NOTED ON 3 L NASAL CANNULA. NO FACIAL GRIMACING NOTED. NO RESIDUAL NOTED FROM GTUBE. PICC LINE PATENT AND INTACT. NO BLOODY DIARRHEA NOTED TODAY.FLAGYL STILL INFUSING. RECEIVED FERRELCIT LATE FROM PHARMACY. FERRELECIT NOT ADMINISTERED ON TIME DUE TO PATIENT RECEIVING BLOOD. PHARMACY NOTIFIED OF THAT. SHIP CLEANER WILL ADMINISTER THE MEDICATION AFTER FLAGYL ENDS INFUSING. BED IN LOWEST LOCKED POSITION. CALL LIGHT WITHIN REACH. DURING SHIFT, PATIENT TURNED AND REPOSITIONED EVERY 2 HOURS. KEPT CLEAN AND DRY. FAMILY AWARE OF PATIENT'S PROGRESSION THROUGHOUT THE DAY. DISCUSSED POLST WITH FAMILY. FAMILY AWARE THAT PATIENT IS DNR/DNI
--- NOTE | 2017-05-10 19:40 | NUR ---
N NOTES: PATIENT RESTING IN BED. NO SIGNS OF DISTRESS NOTED. NONLBAORED BREATHING NOTED ON 3 L NASAL CANNULA. NO FACIAL GRIMACING NOTED. NO RESIDUAL NOTED FROM GTUBE. PICC LINE PATENT AND INTACT. NO BLOODY DIARRHEA NOTED TODAY.FLAGYL STILL INFUSING. RECEIVED FERRELCIT LATE FROM PHARMACY. FERRELECIT NOT ADMINISTERED ON TIME DUE TO PATIENT RECEIVING BLOOD. PHARMACY NOTIFIED OF THAT. [employer]ING [employer] OPERATOR HELPER WILL ADMINISTER THE MEDICATION AFTER FLAGYL ENDS INFUSING. BED IN LOWEST LOCKED POSITION. CALL LIGHT WITHIN REACH. DURING SHIFT, PATIENT TURNED AND REPOSITIONED EVERY 2 HOURS. KEPT CLEAN AND DRY. FAMILY AWARE OF PATIENT'S PROGRESSION THROUGHOUT THE DAY. DISCUSSED POLST WITH FAMILY. FAMILY AWARE THAT PATIENT IS DNR/DNI . NO BLOODY DIARRHEA NOTED DURING SHIFT
--- NOTE | 2017-05-10 19:46 | NUR ---
MS RN NOTES: FERRLECIT IV WILL BE LATE ADMIN UPON MY SHIFT D/T PHARMACY BRINGING IT LATE. WAS ENDORSED FROM AM NURSE.
[2017-05-10] MEDS: SOD FERRIC GLUC 125 MG in IV NS 0.9% 100 ML IV SCH (19:48)
[2017-05-10] MEDS: TAMSULOSIN 0.4 MG CAP.SR.24H PO SCH (21:01)
[2017-05-10] MEDS: VANCOMYCIN HCL 125 MG/2.5 ML ORAL.SUSP PO SCH (23:44)
[2017-05-11] VITALS (10 sets, daily range): BP systolic 82–120; BP diastolic 48–73
[2017-05-11] MEDS: METRONIDAZOLE 500MG/ NS 100ML 500 MG in PREMIX 1 EA IV SCH ×3 (01:25→17:42)
[2017-05-11] MEDS: ALBUTEROL FS 2.5 MG/3 ML VIAL.NEB NEB SCH ×4 (02:16→19:44)
[2017-05-11] MEDS: FIBERSOURCE HN 1,000 ML BOTTLE GT PRN ×2 (05:03→19:58)
[2017-05-11] MEDS: IV D5W 1,000 ML IV PRN (05:03)
[2017-05-11] MEDS: BLOOD SUGAR DIAGNOSTIC 1 EACH STRIP IN SCH ×4 (05:03→23:46)
[2017-05-11] MEDS: INSULIN REGULAR, HUMAN 100 UNIT/ML 3 ML VIAL SQ PRN ×2 (05:06→18:06)
--- NOTE | 2017-05-11 05:06 | NUR ---
MS RN NOTES: BLOOD SUGAR THIS AM WAS 122. NO INSULIN WAS GIVEN. WILL CONTINUE TO MONITOR PT.
[2017-05-11] MEDS: VANCOMYCIN HCL 125 MG/2.5 ML ORAL.SUSP PO SCH ×4 (05:07→23:46)
--- NOTE | 2017-05-11 07:30 | NUR ---
MS RN CLOSING NOTES: ALL NEEDS WERE ATTENDED AND ANTICIPATED FOR. PT IS IN BED AND IS A/OX1. PT HAS 2LPM VIA NC AND IS TOLERATING WELL. PT STILL APPEARS TO BE LETHARGIC. PT EASILY AROUSABLE. PS HAS KWONG CATH AND IS ATTACHED TO DRAINAGE BAG WITH URINE NOTED. OUTPUT WAS 1800ML. NO S/S OF DISTRESS NOTED AT THIS TIME. NO SOB NOTED. CALL LIGHT WITHIN PT'S REACH. BED KEPT IN LOW, LOCKED POSITION, AND SIDE RAILS X 2 UP. PT HAS MOOKIE PICC LINE AND IS PATENT AND INTACT AND IS BEING INFUSED WITH D5W AT 60ML/HR. PT HAS G TUBE AND NO RESIDUAL NOTED. PT HAS FEEDING OF FIBERSOURCE AT 70 ML/HR. ENDORSED TO AM NURSE FOR SERGIO.
--- NOTE | 2017-05-11 07:50 | NUR ---
RN MS NOTES PATIENT A/OX1, EASILY AROUSABLE, PT HAS 2LPM VIA NC AND IS TOLERATING WELL. HOB ELEVATED AT ALL TIMES FOR ASPIRATION PRECAUTION. PT HAS MOOKIE PICC LINE AND IS PATENT AND INTACT AND IS BEING INFUSED WITH D5W AT 60ML/HR. PT HAS G TUBE AND NO RESIDUAL NOTED. PT HAS FEEDING OF FIBERSOURCE AT 70 ML/HR. KWONG CATH DRAINING WITH YELLOW URINE. NO S/S OF DISTRESS NOTED AT THIS TIME. NO SOB NOTED. CALL LIGHT WITHIN PT'S REACH. BED KEPT IN LOW, LOCKED POSITION, AND SIDE RAILS X 2 UP. WILL CONTINUE TO MONITOR.
[2017-05-11] MEDS: PANTOPRAZOLE 40 MG VIAL IV SCH ×2 (08:43→21:28)
[2017-05-11] MEDS: ZINC SULFATE 220 MG CAPSULE PO SCH (08:43)
[2017-05-11] MEDS: PROSOURCE / PROSTAT (PYXIS) 30 ML UDC GT SCH (08:43)
[2017-05-11] MEDS: ASCORBIC ACID 500 MG TABLET PO SCH (08:43)
[2017-05-11] MEDS: FUROSEMIDE 20 MG/2 ML VIAL IV SCH (08:43)
[2017-05-11] MEDS: MULTIVITAMINS,THERAGRAN 1 UDTAB TABLET PO SCH (08:43)
[2017-05-11] MEDS: LEVOTHYROXINE SODIUM 50 MCG TABLET GT SCH (08:43)
[2017-05-11] MEDS: SUCRALFATE 1 G/10 ML UDC GT SCH ×4 (08:44→21:25)
[2017-05-11] MEDS: MUPIROCIN OINT 2% 22 GM TUBE SCH ×2 (08:50→21:25)
[2017-05-11] MEDS: DAKINS QUARTER STRENGTH (0.125%) 480 ML BOTTLE TOP SCH ×2 (08:51→21:25)
[2017-05-11] MEDS: CADEXOMER IODINE 40 GM TUBE TP SCH (08:51)
[2017-05-11] MEDS: NEOMY SULF/BACITRAC ZN/POLY 15 GM TUBE TP SCH ×2 (08:52→18:07)
[2017-05-11] MEDS: Z GUARD REMEDY 2 OZ OINT TP SCH (08:52)
[2017-05-11 08:55] LABS: BASOPHILS % (AUTO) 0.2 % (0.0-2.0); EOSINOPHILS # (AUTO) 0.1 /CMM (0.0-0.7); HEMATOCRIT 21 % (39-51); LYMPHOCYTES # (AUTO) 0.8 /CMM (0.8-4.8); LYMPHOCYTES % (AUTO) 11.2 % (20.0-44.0); MEAN CORPUSCULAR HEMOGLOBIN 32 PG (26.0-33.0); MEAN CORPUSCULAR HGB CONC 33 g/dl (31.0-36.0); MEAN CORPUSCULAR VOLUME 96 fL (80-96); MONOCYTES # (AUTO) 0.4 /CMM (0.1-1.30); MONOCYTES % (AUTO) 5.9 % (2.0-12.0); NEUTROPHILS # (AUTO) 5.6 /CMM (1.8-8.9); NEUTROPHILS % (AUTO) 81.7 % (43.0-81.0); PLATELET COUNT (AUTO) 82 /CMM (150-450); RDW COEFFICIENT OF VARIATION 20.2 (11.5-15.0); RED BLOOD CELL COUNT(AUTO) 2.16 MIL/uL (4.5-6.0); WHITE BLOOD COUNT (AUTO) 6.8 K/uL (4.3-11.0)
[2017-05-11 09:14] LABS: HEMOGLOBIN 6.9 g/dL (13.5-17.5)
--- NOTE | 2017-05-11 09:33 | NUR ---
RN NOTES PLACED A CALL AT DR. TOLEDO'S OFFICE, RELAYED HGB/HCT RESULT, AWAITING FOR CALL BACK. LIZBET KESSLER, UNDER DR. TOBIN AWARE OF HGB AND HCT RESULT AND RECEIVED NEW ORDERS.
[2017-05-11 09:37] LABS: CALCIUM, SERUM 7.4 mg/dL (8.5-10.1); CARBON DIOXIDE 34 mmol/L (21-32); CHLORIDE 111 mmol/L (98-107); CREATININE 1.3 mg/dL (0.6-1.3); GLUCOSE 140 mg/dL (74-106); POTASSIUM 4.3 mmol/L (3.5-5.1); SODIUM SERUM 147 mmol/L (136-145)
[2017-05-11 09:40] LABS: UREA NITROGEN, BLOOD 94 mg/dL (7-18)
[2017-05-11] MEDS: MESALAMINE 400 MG CAP PO SCH ×2 (09:53→17:42)
[2017-05-11 10:06] LABS: BAND % (MANUAL) 2 % (0.0-5.0); EOSINOPHILS % (MANUAL) 2 % (0-4); LYMPHOCYTES % (MANUAL) 11 % (16-48); MONOCYTES % (MANUAL) 4 % (0-11.0); NEUTROPHILS % (MANUAL) 81 (42-76)
--- NOTE | 2017-05-11 10:50 | NUR ---
RN MS NOTES RECEIVED AN ORDER FROM DR. TOLEDO FOR 2 UNITS OF PRBC, AND CONFIRMED WITH LIZBET MCCOY NP. PER WAX ROOM SUPERVISOR OK TO GIVE 2 UNITS. ORDER NOTED AND CARRIED OUT.
[2017-05-11 11:40] LABS: PHOSPHORUS 1.7 mg/dL (2.5-4.9)
--- NOTE | 2017-05-11 12:00 | NUR ---
RN MS NOTES BLOOD TRANSFUSION STARTED 1130, NO ADVERSE REACTION NOTED ATT HIS TIME, VITAL SIGNS STABLE EXCEPT FOR HEART RATE 116 TACHYCARDIC EVEN PRIOR TO STARTING BLOOD TRANSFUSION,, DR. TOLEDO CAME AND EXAMINED PATIENT, AWARE OF ELEVATED HEART RATE. NO NEW ORDER AT THIS TIME, WILL CONTINUE TO MONITOR.
--- NOTE | 2017-05-11 14:57 | NUR ---
RN MS NOTES 1ST UNIT OF BLOOD COMPLETED, NO ADVERSE REACTION NOTED. VS OBTAINED, RELAYED TO DR. TOLEDO. 2ND UNIT OF BLOOD STARTED. WILL CONTINUE TO MONITOR.
[2017-05-11] MEDS ORDERED: NEUTRA PHOS 1 POWD.PACKET NG ONE (15:30)
[2017-05-11] MEDS ORDERED: NEUTRA PHOS 1 POWD.PACKET PO ONE (18:00)
--- NOTE | 2017-05-11 18:49 | NUR ---
RN MS NOTES A/OX1, LETHARGIC BUT STILL RESPONSIVE TO VERBAL STIMULI, ON O2 AT 3LPM VIA NC WITH 93% SPO2, PATIENT OBSERVED TO HAVE LABORED BREATHING WITH RR OF 24-26, BUT SPO2 SHOWS > 92% WHILE ON O2. PATIENT COMPLETED 2 UNITS OF PRBC, TOLERATED TRANSFUSION, NO ADVERSE REACTION NOTED, WAITING FOR DAUGHTER TO VISIT THE PATIENT AND WILL SIGN THE CONSENT FORM FOR EGD TOMORROW, PATIENT IS TO BE NPO AFTER MIDNIGHT FOR EGD. HOB ELEVATED AT ALL TIMES, GTF ONGOING AT 75ML/HR, PICC LINE PATENT AND FLUSHES WELL, WITH IVF INFUSING, WOUND TREATMENT RENDERED, TURNED AND REPOSITIONED Q2HRS AND PRN, ADL CARE AND SKIN CARE PROVIDED, ALL NEEDS ATTENDED AND MET, CALL LIGHT WITHIN REACH, WILL ENDORSE TO AURICULAR THERAPIST FOR SERGIO.
--- NOTE | 2017-05-11 20:00 | NUR ---
MS RN NOTES PT O2 IS AT 72%. OXYGEN MASK WAS PLACED, PT WAS REPOSITIONED, BED IN HIGH FOWLERS. PT O2 WILL INCREASE MOMENTARILY BUT CONTINUES TO DE-SAT LOWEST 68%.
--- NOTE | 2017-05-11 20:30 | NUR ---
MS RN NOTES PT PLACED ON NON REBREATHER MASK, FULL O2. SATING AT 94-96%. BREATHING CONTINUES TO BE LABORED. RT WAS PAGED
--- NOTE | 2017-05-11 20:35 | NUR ---
MS RN NOTES DR. TOLEDO WAS PAGED, AWAITING CALL BACK.
--- NOTE | 2017-05-11 21:20 | NUR ---
MS RN NOTES DR TOLEDO ORDERED; CHEST XRAY, ABG, AND LASIX 20 MG IV STAT
[2017-05-11] MEDS: TAMSULOSIN 0.4 MG CAP.SR.24H PO SCH (21:25)
[2017-05-11] MEDS ORDERED: FUROSEMIDE 20 MG/2 ML VIAL IV ONE (21:30)
--- NOTE | 2017-05-11 21:52 | NUR ---
MS RN NOTES CHEST XRAY COMPLETED
[2017-05-11 22:58] LABS: ABG BASE EXCESS 7.1 mmol/L; ABG OXYGEN SATURATION 95.4 % (92.0-98.5); ABG PCO2 51.2 mmHg (35.0-45.0); ABG PH 7.421 (7.350-7.450); ABG PO2 84.5 mmHg (75.0-100.0); AaDO2 577.3 mmHg; MetHb 1.4 % (0.0-1.5); O2Hb 94.1 % (94.0-97.0); SITE, ABG Right Radial
--- NOTE | 2017-05-11 23:43 | NUR ---
MS RN NOTES PAGED DR TOLEDO TO REPORT CHEST XRAY RESULTS, AWAITING CALL BACK
[2017-05-12] MEDS ORDERED: FUROSEMIDE 20 MG/2 ML VIAL IV ONE
--- NOTE | 2017-05-12 | NUR ---
MS RN NOTES DR TOLEDO ORDERED ANOTHER 20 LASIX IV. IV FLUIDS DECREASED TO 20 ML/HR WILL CONTINUE TO MONITOR PT
[2017-05-12] MEDS: METRONIDAZOLE 500MG/ NS 100ML 500 MG in PREMIX 1 EA IV SCH ×2 (00:01→10:35)
[2017-05-12] MEDS: INSULIN REGULAR, HUMAN 100 UNIT/ML 3 ML VIAL SQ PRN (00:09)
[2017-05-12] MEDS: ALBUTEROL FS 2.5 MG/3 ML VIAL.NEB NEB SCH ×2 (02:06→08:01)
--- NOTE | 2017-05-12 04:10 | NUR ---
MS RN NOTES NOTED NO DRAINAGE AFTER 2ND LASIX. BLADDER SCAN SHOWED 341 ML. CATHETER WAS ADVANCED AND IRRIGATED. WILL CONTINUE TO MONITOR PT
[2017-05-12] MEDS: BLOOD SUGAR DIAGNOSTIC 1 EACH STRIP IN SCH (05:23)
[2017-05-12] MEDS: VANCOMYCIN HCL 125 MG/2.5 ML ORAL.SUSP PO SCH (05:23)
--- NOTE | 2017-05-12 06:20 | NUR ---
MS RN NOTES CONTACTED DR TOLEDO TO REPORT BLADDER SCAN OF 457 ML, AWAITING HIS CALL BACK
[2017-05-12] MEDS: SUCRALFATE 1 G/10 ML UDC GT SCH (07:30)
--- NOTE | 2017-05-12 07:30 | NUR ---
RN OPENING NOTES RECEIVED PATIENT IN BED. RESPIRATIONS SHALLOW AND LABORED. ON NON-REBREATHER MASK AT 15LPM, SATURATION OF 98%. IV SITE INTACT. KWONG IN PLACE. FOR EGD/COLONOSCOPY TODAY. BED IN LOW POSITION, LOCKED, SIDERAILS UPX2. CALL LIGHT IN REACH. WILL CONTINUE TO MONIOTR ACCORDINGLY.
--- NOTE | 2017-05-12 07:45 | NUR ---
MS RN NOTES PT IS IN BED RESTING, BREATHING SHALLOW AND LABORED. ON NON-REBREATHER AT FULL O2 SATING AT 98%. ENDORSED TO DAY SHIFT REGARDING PTS KWONG AND DRAINAGE, STILL AWAITING DR TOLEDO'S CALL BACK. TUBE FEEDING IS HELD. BED IS IN LOW AND LOCKED. WILL ENDORSE TO DAY SHIFT.
[2017-05-12 08:00] VITALS: BP 97/60
[2017-05-12 08:15] LABS: HEMATOCRIT 27 % (39-51); HEMOGLOBIN 9.1 g/dL (13.5-17.5); LYMPHOCYTES # (AUTO) 0.8 /CMM (0.8-4.8); LYMPHOCYTES % (AUTO) 3.7 % (20.0-44.0); MEAN CORPUSCULAR HEMOGLOBIN 32 PG (26.0-33.0); MEAN CORPUSCULAR HGB CONC 33 g/dl (31.0-36.0); MEAN CORPUSCULAR VOLUME 95 fL (80-96); MONOCYTES # (AUTO) 0.7 /CMM (0.1-1.30); MONOCYTES % (AUTO) 3.2 % (2.0-12.0); NEUTROPHILS # (AUTO) 21.1 /CMM (1.8-8.9); NEUTROPHILS % (AUTO) 93.1 % (43.0-81.0); PLATELET COUNT (AUTO) 76 /CMM (150-450); RED BLOOD CELL COUNT(AUTO) 2.89 MIL/uL (4.5-6.0); WHITE BLOOD COUNT (AUTO) 22.6 K/uL (4.3-11.0)
[2017-05-12 08:31] LABS: BILIRUBIN,DIRECT 0.2 mg/dL (0.0-0.2); BILIRUBIN,TOTAL 0.5 mg/dL (0.2-1.0); TOTAL PROTEIN, SERUM 4.1 g/dL (6.4-8.2)
[2017-05-12 08:48] LABS: CALCIUM, SERUM 7.7 mg/dL (8.5-10.1); CARBON DIOXIDE 33 mmol/L (21-32); CHLORIDE 111 mmol/L (98-107); CREATININE 1.4 mg/dL (0.6-1.3); GLUCOSE 95 mg/dL (74-106); MAGNESIUM 2.1 mg/dL (1.8-2.4); PHOSPHORUS 2.4 mg/dL (2.5-4.9); POTASSIUM 4.7 mmol/L (3.5-5.1); SODIUM SERUM 147 mmol/L (136-145)
[2017-05-12 08:51] LABS: UREA NITROGEN, BLOOD 100 mg/dL (7-18)
--- NOTE | 2017-05-12 09:15 | NUR ---
RN NOTES DR LIRA AT BEDSIDE, SUGGESTED BIPAP AND TRANSFER PATIENT TO ICU. NOTIFIED RT ABOUT THE BIPAP, ABGs TAKEN AND NOTIFIED DR LIRA. LASIX PULLED OUT FROM OMNICELL AND WASTED, D/C LASIX PER DR LIRA. WILL CONTINUE TO MONITOR ACCORDINGLY.
[2017-05-12 09:23] LABS: ABG BASE EXCESS 7.3 mmol/L; ABG OXYGEN SATURATION 97.4 % (92.0-98.5); ABG PCO2 54.7 mmHg (35.0-45.0); ABG PH 7.401 (7.350-7.450); ABG PO2 113.4 mmHg (75.0-100.0); AaDO2 399.6 mmHg; COHb 0.4 % (0.5-1.5); MetHb 1.1 % (0.0-1.5); O2Hb 95.9 % (94.0-97.0); SITE, ABG Right Radial; VENT MODE, BG NRB
[2017-05-12] MEDS ORDERED: NTG 50 MG/D5W250 ML BOTTL 250 ML IV PRN (09:30)
[2017-05-12] MEDS ORDERED: BUMETANIDE INJ 8 MG in IV NS 0.9% 48 ML IV ONE (09:30)
--- NOTE | 2017-05-12 09:50 | NUR ---
RN NOTES TRANSFERRED PATIENT TO ICU. BEDSIDE REPORT GIVEN TO PAVING INSPECTORSUSAN.
[2017-05-12 10:00] VITALS: BP 92/49
--- NOTE | 2017-05-12 10:15 | NUR ---
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 PT ON NON REBREATHER MASK AT 15L/MIN SATURATION 90%. PT PLACED ON LOG HANDLING EQUIPMENT OPERATOR SHOWING UNCONTROLLED AFIB 98. NOTED PT GURGLING. NASAL SUCTIONING DONE, LG AMOUNT OF COPIOUS SECREATIONS NOTED. PT SATURATION NOW 100%. WILL CONTINUE TO MONITOR CLOSELY FOR SATURATIONS. KWONG CATH INTACT DRAINING DARK BASHIR COLOR URINE.
[2017-05-12 10:30] VITALS: BP 97/56
[2017-05-12 10:32] LABS: BAND % (MANUAL) 10 % (0.0-5.0); LYMPHOCYTES % (MANUAL) 5 % (16-48); MONOCYTES % (MANUAL) 2 % (0-11.0); NEUTROPHILS % (MANUAL) 83 (42-76)
[2017-05-12] MEDS: PANTOPRAZOLE 40 MG VIAL IV SCH (10:35)
--- NOTE | 2017-05-12 10:40 | NUR ---
SALES ASSISTANT INSTITUTIONAL SALES; CALLED PTS DAUGHTER TILA MERRILL TO NOTIFY THAT PT IS AGONAL BREATHING. HEART RATE AFIB 40-60. DAUGHTER STATING " I HAVE SAID MY GOOD BYES YESTERDAY, MAKE SURE HE IS COMFORTABLE." DR. ECHEVARRIA AT BEDSIDE UPDATE GIVEN PT AGONAL BREATHING WITH MOD AMOUNT OF BRIGHT RED BLOOD COMING OUT OF MOUTH. NO NEW ORDERS GIVEN, "MAKE COMFORTABLE AND NOTIFY DAUGHTER".
--- NOTE | 2017-05-12 10:55 | NUR ---
TECHNICAL OPERATIONS MANAGER; PT IS DNR/DNI. NO PALPABLE PULSES, NO SPONTANEOUS BREATHING, NO HEART TONES OR BREATH SOUNDS. CHARGE NURSE Justine MURPHY RN AT BEDSIDE. Addendum: 05/12/17 at 1146 by SUSAN THOMPSON RN 1055 PT PRONOUNCED BY ALLIE MURPHY RN. AT 1055
--- NOTE | 2017-05-12 12:00 | NUR ---
NET COORDINATOR; PT TAKE TO [facility]. 1115: SPOKE WITH PTS DAUGHTER TILA AND NOTIFIED REGARDING PT . AT THIS TIME DAUGHTER DOES NOT HAVE INFORMATION REGARDING MORTUARY. DISCUSSED THAT PT WILL BE [facility] CHOICE OF MORTUARY IS AVAILABLE AND ABLE TO TAKE PT.
== END 2017-05-12 12:12 | disposition expired | DRG 853 ==
LOC: ER 10:59 → ICU 12:37 → MED 04-21 16:10 → ICU 05-01 09:15 → TELE 05-04 17:40 → MED 05-05 16:04 → ICU 05-12 09:36
PROVIDERS: ADMIT Legal Medicine; ATTEND Legal Medicine
PROC: 30233N1 Transfusion of Nonautologous Red Blood Cells into Peripheral Vein, Percutaneous Approach (ICD-10-PCS; 2017-04-19)
PROC: 02HV33Z Insertion of Infusion Device into Superior Vena Cava, Percutaneous Approach (ICD-10-PCS; 2017-04-19)
PROC: B548ZZA Ultrasonography of Superior Vena Cava, Guidance (ICD-10-PCS; 2017-04-19)
PROC: 0DB68ZX Excision of Stomach, Via Natural or Artificial Opening Endoscopic, Diagnostic (ICD-10-PCS; 2017-04-22)
PROC: 0KBP0ZZ Excision of Left Hip Muscle, Open Approach (ICD-10-PCS; principal; 2017-04-23)
PROC: 0KBN0ZZ Excision of Right Hip Muscle, Open Approach (ICD-10-PCS; 2017-04-23)
PROC: 0DBH8ZZ Excision of Cecum, Via Natural or Artificial Opening Endoscopic (ICD-10-PCS; 2017-04-24)
PROC: 0DBG8ZX Excision of Left Large Intestine, Via Natural or Artificial Opening Endoscopic, Diagnostic (ICD-10-PCS; 2017-04-24)
PROC: 0W9B3ZZ Drainage of Left Pleural Cavity, Percutaneous Approach (ICD-10-PCS; 2017-05-01)
PROC: 0W9B3ZZ Drainage of Left Pleural Cavity, Percutaneous Approach (ICD-10-PCS; 2017-05-04)
PROC: 0KBP0ZZ Excision of Left Hip Muscle, Open Approach (ICD-10-PCS; 2017-05-07)
PROC: 0KBN0ZZ Excision of Right Hip Muscle, Open Approach (ICD-10-PCS; 2017-05-07)
PROC: 30233K1 Transfusion of Nonautologous Frozen Plasma into Peripheral Vein, Percutaneous Approach (ICD-10-PCS; 2017-05-10)
DX: A41.9 Sepsis, unspecified organism (principal); J96.21 Acute and chronic respiratory failure with hypoxia; E43 Unspecified severe protein-calorie malnutrition; G93.41 Metabolic encephalopathy; J90 Pleural effusion, not elsewhere classified; A04.72 Enterocolitis due to Clostridium difficile, not specified as recurrent; R57.1 Hypovolemic shock; R65.21 Severe sepsis with septic shock; J15.9 Unspecified bacterial pneumonia; L89.154 Pressure ulcer of sacral region, stage 4; K29.71 Gastritis, unspecified, with bleeding; J96.22 Acute and chronic respiratory failure with hypercapnia; D68.59 Other primary thrombophilia; D62 Acute posthemorrhagic anemia; E87.0 Hyperosmolality and hypernatremia; E87.2 Acidosis; J98.11 Atelectasis; B37.49 Other urogenital candidiasis; I69.851 Hemiplegia and hemiparesis following other cerebrovascular disease affecting right dominant side; D69.6 Thrombocytopenia, unspecified; D50.9 Iron deficiency anemia, unspecified; E03.9 Hypothyroidism, unspecified; E78.5 Hyperlipidemia, unspecified; E83.39 Other disorders of phosphorus metabolism; E83.42 Hypomagnesemia; E87.6 Hypokalemia; F03.90 Unspecified dementia, unspecified severity, without behavioral disturbance, psychotic disturbance, mood disturbance, and anxiety; I25.10 Atherosclerotic heart disease of native coronary artery without angina pectoris; Z66 Do not resuscitate; R13.10 Dysphagia, unspecified; Z87.11 Personal history of peptic ulcer disease; Z93.1 Gastrostomy status; Z88.2 Allergy status to sulfonamides; I48.0 Paroxysmal atrial fibrillation; S81.002A Unspecified open wound, left knee, initial encounter; X58.XXXA Exposure to other specified factors, initial encounter; Y93.9 Activity, unspecified; Y92.129 Unspecified place in nursing home as the place of occurrence of the external cause; L89.610 Pressure ulcer of right heel, unstageable; L89.620 Pressure ulcer of left heel, unstageable; L89.521 Pressure ulcer of left ankle, stage 1; K44.9 Diaphragmatic hernia without obstruction or gangrene; S81.802A Unspecified open wound, left lower leg, initial encounter; S81.801A Unspecified open wound, right lower leg, initial encounter; K64.8 Other hemorrhoids; L98.8 Other specified disorders of the skin and subcutaneous tissue; E88.09 Other disorders of plasma-protein metabolism, not elsewhere classified; D12.0 Benign neoplasm of cecum; I10 Essential (primary) hypertension; M81.0 Age-related osteoporosis without current pathological fracture; B95.4 Other streptococcus as the cause of diseases classified elsewhere; E11.65 Type 2 diabetes mellitus with hyperglycemia
CPT/HCPCS: 31720; 36415; 36569; 36600; 71010-TC; 76942-TC; 80048-TC; 80053-TC; 80061-TC; 80076-TC; 80202-TC; 81000-TC; 82272-TC; 82728-TC; 82803-TC; 82962-TC; 83540-TC; 83605-TC; 83690-TC; 83735-TC; 84100-TC; 84134-TC; 84439-TC; 84443-TC; 84484-TC; 85025-TC; 85027-TC; 85610-TC; 85730-TC; 86850-TC; 86921-TC; 87040-TC; 87070-TC; 87081-TC; 87086-TC; 88305-TC; 88312-TC; 88313-TC; 88342; 89051-TC; 93307-TC; 94799-TC; A4216; A4349; A4606; A6253; A6402; A6403; C1751; C9113; J0282; J1160; J1200; J1815; J1940; J2543; J2704; J2916; J3370; J3430; J3475; J3480; J3490; J7030; J7040; J7042; J7050; J7060; J7070; P9016-BL; P9017-BL; Z7610